=== PATIENT | male | born 1970 | race Caucasian/White ===

== ENCOUNTER 2022-06-01 17:49 | Inpatient (IN) ==
[2022-06-01] MEDS ORDERED: SODIUM CHLORIDE 0.9% 1000ML 1,000 ML IV SCH (18:30)
[2022-06-01] MEDS ORDERED: MoRPHine SULFATE 2 MG/ML CARP IV STA (18:31)
[2022-06-01] MEDS ORDERED: MoRPHine SULFATE 2 MG/ML CARP IV PRN ×2 (18:31→22:46)
[2022-06-01] MEDS ORDERED: ONDANSETRON INJ 2 MG/ML 2 ML VIAL IV STA (18:31)
[2022-06-01] MEDS ORDERED: D5W AND 1/2NSS 1,000 ML IV STA (18:31)
[2022-06-01 18:35] LABS: Basophils # (auto) 0.02 K/uL (0-0.2); Basophils % (auto) 0.1 %; Hematocrit (blood only) 37.7 % (40.1-51.0); Immature Granulocytes # (auto) 0.22 K/uL (0.00-0.02); Immature Granulocytes % (auto) 1.6 %; Lymphocytes % (auto) 18.4 %; Mean Corpuscular Hemoglobin 37.4 pg (25.0-34.0); Mean Corpuscular Hgb Conc 34.5 g/dL (32.0-36.0); Mean Corpuscular Volume 108.3 fL (80.0-100.0); Mean Platelet Volume 11.5 fL (9.4-12.4); Monocytes # (auto) 0.77 K/uL (0.24-0.82); Monocytes % (auto) 5.7 %; Neutrophils # (auto) 10.08 K/uL (1.4-6.5); Neutrophils % (auto) 74.2 %; Platelet Count 215 K/uL (130-400); RDW Coefficient of Variation 17.8 % (11.5-14.5); RDW Standard Deviation 71.7 fL (36.4-46.3); Red Blood Count 3.48 M/uL (4.63-6.08); White Blood Count 13.59 K/ul (4.8-10.8)
--- NOTE | 2022-06-01 18:39 | Emergency Department Note ---
Impression & Plan Weakness, Pneumonia, Ascites, Leukocytosis, Elevated lactic acid level, Hypoglycemia ED Provider Note NAME: LUCIA EDWARD AGE: 51 SEX: M : 1970 ARRIVES VIA: Ambulance INFORMANT: [Patient][ems, nursing] ED PROVIDER(S): [Hawk Hart MD] CHIEF COMPLAINT: Weakness HISTORY OF PRESENT ILLNESS: The patient is a 51-year-old male with a history of alcohol abuse. He was not seen for 2 weeks by his neighbors so EMS was summoned. He was found on the couch and has apparently been there for a week. He is frail, dehydrated, weak. He complains of diffuse moderate abdominal pain and also diarrhea. No respiratory complaints, no cough or chest pain or shortness of breath. The patient does think he may have been running a fever from time to time over the last week or so. The patient does live alone, he admits to decreased oral intake for the last 2 weeks at least. As per the nursing staff, the patient's blood sugar is in the 50s despite him having something to eat when he first arrived here in the ED. REVIEW OF SYSTEMS: See HPI for pertinent positives and negatives. A total of ten systems were reviewed and were otherwise negative. PMHx/PSHx: See Below SOCIAL HISTORY: See Below. PHYSICAL EXAM: GENERAL: Patient is in no acute distress. HEENT: No acute trauma, normocephalic atraumatic, mucous membranes dry, no nasal congestion, no scleral icterus. NECK: No stridor, no adenopathy, no meningismus, trachea is midline. LUNGS: Lungs are clear to auscultation anteriorly, he does appear to have an increased respiratory rate, no wheezing or rhonchi, no respiratory distress. HEART: Very distant and hard to hear heart tones, rhythm seems regular and he is mildly tachycardic. ABDOMEN: Soft, moderately diffusely tender, soft. No distention. EXTREMITIES: No cyanosis. He does have some bilateral pedal edema. His extremities show significant muscle wasting. No gross deformities NEUROLOGIC: Oriented x 3, no acute motor or sensory deficits, no focal weakness. SKIN: No rash, no jaundice, no diaphoresis. DIFFERENTIAL DIAGNOSIS: Infection, dehydration, UTI, debilitation, bowel obstruction, COVID-19, metabolic abnormality, hypo/hyperglycemia, electrolyte disturbance, anemia, hypoxia, cardiac sources, intracerebral event, toxicologic issues, stroke, TIA, as well as other pathologies. EMERGENCY DEPARTMENT COURSE/PROCEDURES: ECG: Indication was weakness. The ECG shows a sinus tachycardia with a rate of 106. There are some T wave inversions in the inferior leads and some subtle ST depression in the lateral leads. There appears to be an old septal infarct. There is no ST elevation. No PVCs. The QTc is 462. Compared to an ECG from 19 September 2021, the ST and T wave findings are new, the rate has increased. Continuous Cardiac Monitoring: An order was placed for continuous cardiac monitoring. The monitor shows a rate of 104 with sinus tachycardia. Critical Care Note: I have personally spent 39 minutes of critical care time in the direct management of this patient. This includes bedside care, interpretation of diagnostic studies, and testing, discussion with consultants, patient, and family members, and other required patient management activities. This 39 minutes is in excess of all separately billable procedures. MEDICAL DECISION MAKING: There is a mild leukocytosis, this certainly could be consistent with infection. No worrisome anemia. There was a normal platelet count. Glucose was low at 56. No renal failure. Lactic acid level was elevated consistent with infection and/or dehydration. Alk phos was slightly elevated, the bilirubin was normal. ECG showed a sinus tachycardia, no ischemia. Cardiac enzyme testing x1 is not consistent with acute cardiac injury. Procalcitonin level was quite elevated. The TSH was high however, the T4 was normal. Urinalysis did not suggest infection. COVID, influenza and RSV test were negative. Chest x-ray shows what appears to be right lower lung pneumonia. Abdominal and pelvis CT shows ascites, no acute surgical pathology by CT imaging. On exam, the patient was frail, dehydrated. He was slightly tachycardic. He had a diffusely tender abdomen. The patient was given IV saline 1 L. He received D5 half-normal saline because the lower blood sugar. He was given IV Zofran for nausea. He received IV morphine for pain as needed. He was given IV cefepime as antibiotic coverage, IV doxycycline as antibiotic coverage. The patient appears to have pneumonia. He is dehydrated. He is weak and unable to care for himself. He will require a hospital stay. With the abdominal pain and ascites, bacterial peritonitis is certainly a possibility. I spoke with the patient, I talked to the case packer and sealer. I spoke to the on-call hospitalist. The possibility of bacterial peritonitis can be further worked up during the hospital stay. A paracentesis can performed. Past Med/Surg History Medical History Chronic back pain Depression Hyperglycemia Migraine Osteoarthritis Uncontrolled type 2 diabetes with neuropathy Uncontrolled type II diabetes mellitus Vitamin D deficiency Surgical History History of esophagogastroduodenoscopy (EGD) History of right inguinal hernia repair History of tooth extraction all teeth removed Family History Father Family history of diabetes mellitus Mother Cancer Breast cancer Other No family history of adverse response to anesthesia Denies family history of Ovarian cancer Prostate cancer Myocardial infarction Colorectal cancer Social History Smoking Status: Current some day smoker Tobacco Type: Cigarettes Age Started Using Tobacco: 12; Cigarettes Per Day: 20 a day; Second Hand Exposure: Yes (parents smoked); Do You Dip or Chew Tobacco: No; Hx Alcohol Use: No Hx Substance Use: Yes Non-Prescribed Medications: Marijuana Last Used Substance: Days (ago) Last Used Substance Other:: for pain Preferred Language: Urdu Communication Ability: Effective Freight Separator Required: No Beliefs That Will Affect Care: None marital status: Single Current Living Situation: Alone current occupational status: disabled How many Children do You have: 1 Feels Safe at Home: Yes Childhood Exposure to Second-Hand Smoke: No caffeine: Yes Dental Care, Regularly: No Physical Activity Frequency: Does not Exercise Seatbelt Use: sometimes Sunscreen Use: No Assistive Devices: Glasses and Wheelchair Allergies Allergies Allergy/AdvReac Type Severity Reaction Status Date / Time No Known Allergies Allergy Unknown Verified 03/26/22 15:02 Home Meds Home Medications Medication Instructions Recorded Confirmed acetaminophen 500 mg tablet 1,000 mg PO TID PRN 09/19/21 06/01/22 insulin aspart U-100 100 unit/mL 0 unit SQ TID 09/19/21 06/01/22 (3 mL) subcutaneous pen (Novolog Flexpen U-100 Insulin aspart) insulin glargine 100 unit/mL (3 0 unit SUBCUT BID 09/19/21 06/01/22 mL) subcutaneous pen (Lantus Solostar U-100 Insulin) Previous Rx's Medication Instructions Recorded blood sugar diagnostic #100 ea 02/04/22 gabapentin 300 mg capsule 300 mg PO BID #60 cap 03/06/22 levothyroxine 50 mcg tablet 50 mcg PO DAILY #30 tab 03/06/22 aspirin 81 mg tablet,delayed 81 mg PO DAILY #30 tab 03/19/22 release (Adult Aspirin Regimen) cholecalciferol (vitamin D3) 125 250 mcg PO DAILY #30 cap 03/26/22 mcg (5,000 unit) capsule Wheelchair (Manual) #1 ea 03/27/22 blood sugar diagnostic (OneTouch #100 ea 05/13/22 Ultra Test) hydrocodone 5 mg-acetaminophen 325 0.5 - 1 tab PO Q12H PRN #30 tab 05/13/22 mg tablet Results & Data (ED) Vital Signs Vital Signs - 24 hr 06/01/22 17:57 06/01/22 18:45 06/01/22 18:46 Temperature 36.7 C Temperature Source Oral Pulse Rate 104 H Pulse Rate from SpO2 Sensor Pulse Rhythm Regular Pulse Strength Normal Respiratory Rate 20 Respiratory Effort / Characteristics Non-Labored Spontaneous Respiratory Depth Normal Respiratory Pattern Regular Blood Pressure 127/91 Blood Pressure Mean 103 Blood Pressure Position Lying Pulse Oximetry 94 95 95 Oxygen Delivery Method Room Air Room Air Room Air Oxygen Flow Rate 0 Sepsis Recent Fever Within 48 Hours No Sepsis New/Unexplained Change in Mental Status N/A Sepsis Action Taken by Nursing No Action Required 06/01/22 20:00 06/01/22 20:30 06/01/22 21:00 Temperature Temperature Source Pulse Rate Pulse Rate from SpO2 Sensor 80 113 H 115 H Pulse Rhythm Pulse Strength Respiratory Rate Respiratory Effort / Characteristics Respiratory Depth Respiratory Pattern Blood Pressure 142/105 H 111/66 Blood Pressure Mean 117 81 Blood Pressure Position Pulse Oximetry 95 98 93 Oxygen Delivery Method Room Air Room Air Room Air Oxygen Flow Rate Sepsis Recent Fever Within 48 Hours Sepsis New/Unexplained Change in Mental Status Sepsis Action Taken by Shelter Medications Current Medication List: was personally reviewed by me Laboratory Data Attestation: I reviewed the patient's lab results. Result diagrams: 06/01/22 18:05 06/01/22 18:05 Lab Results 06/01/22 06/01/22 06/01/22 Range/Units 18:02 18:05 18:05 WBC 13.59 H (4.8-10.8) K/ul RBC 3.48 L (4.63-6.08) M/uL Hgb 13.0 L (14.0-18.0) g/dl Hct 37.7 L (40.1-51.0) % MCV 108.3 H (80.0-100.0) fL MCH 37.4 H (25.0-34.0) pg MCHC 34.5 (32.0-36.0) g/dL RDW Std Deviation 71.7 H (36.4-46.3) fL RDW Coeff of Lay 17.8 H (11.5-14.5) % Plt Count 215 (130-400) K/uL MPV 11.5 (9.4-12.4) fL Immature Gran % (Auto) 1.6 % Neut % (Auto) 74.2 % Lymph % (Auto) 18.4 % King % (Auto) 5.7 % Eos % (Auto) 0.0 % Baso % (Auto) 0.1 % Neut # (Auto) 10.08 H (1.4-6.5) K/uL Lymph # (Auto) 2.50 (1.2-3.4) K/uL King # (Auto) 0.77 (0.24-0.82) K/uL Eos # (Auto) 0.00 (0-0.50) K/uL Baso # (Auto) 0.02 (0-0.2) K/uL Immature Gran # (Auto) 0.22 H (0.00-0.02) K/uL Sodium 140 (136-145) mmol/L Potassium 4.1 (3.5-5.1) mmol/L Chloride 106 (98-107) mmol/L Carbon Dioxide 24 (21-32) mmol/L Anion Gap 10 (3-11) BUN 32 H (6-23) mg/dl Creatinine 0.78 (0.6-1.4) mg/dl Est Cr Clr Drug Dosing 74.0 ml/min Est GFR ( Amer) 119.4 ml/min Est GFR (Non-Af Amer) 103.1 ml/min BUN/Creatinine Ratio 41.0 H (10-20) Glucose 56 L (70-99(Fasting)) mg/dl POC Glucose 58 L* (70-99) mg/dl Lactate (0.4-2.0) mmol/L Calcium 8.0 L (8.5-10.1) mg/dl Magnesium 1.9 (1.7-2.4) mg/dl Total Bilirubin 0.7 (0.2-1.0) mg/dl AST 22 (13-39) U/L ALT 17 (7-52) U/L Alkaline Phosphatase 123 H (34-104) U/L Total Creatine Kinase 47 (30-223) U/L Troponin I High Sens 8.2 (0-20) pg/ml Total Protein 5.6 L (6.0-8.3) gm/dl Albumin 2.0 L (3.4-5.0) gm/dl Globulin 3.6 (2.5-4.0) gm/dl Albumin/Globulin Ratio 0.6 L (0.9-2) Procalcitonin (0-0.5) ng/ml TSH (0.300-4.500) uIu/ml Free T4 (0.61-1.60) ng/dl SARS-CoV-2 (PCR) (Negative) Influenza Type A (PCR) (Neg) Influenza Type B (PCR) (Neg) RSV (RT-PCR) (Neg) 06/01/22 06/01/22 06/01/22 Range/Units 18:05 18:05 18:18 WBC (4.8-10.8) K/ul RBC (4.63-6.08) M/uL Hgb (14.0-18.0) g/dl Hct (40.1-51.0) % MCV (80.0-100.0) fL MCH (25.0-34.0) pg MCHC (32.0-36.0) g/dL RDW Std Deviation (36.4-46.3) fL RDW Coeff of Lay (11.5-14.5) % Plt Count (130-400) K/uL MPV (9.4-12.4) fL Immature Gran % (Auto) % Neut % (Auto) % Lymph % (Auto) % King % (Auto) % Eos % (Auto) % Baso % (Auto) % Neut # (Auto) (1.4-6.5) K/uL Lymph # (Auto) (1.2-3.4) K/uL King # (Auto) (0.24-0.82) K/uL Eos # (Auto) (0-0.50) K/uL Baso # (Auto) (0-0.2) K/uL Immature Gran # (Auto) (0.00-0.02) K/uL Sodium (136-145) mmol/L Potassium (3.5-5.1) mmol/L Chloride (98-107) mmol/L Carbon Dioxide (21-32) mmol/L Anion Gap (3-11) BUN (6-23) mg/dl Creatinine (0.6-1.4) mg/dl Est Cr Clr Drug Dosing ml/min Est GFR ( Amer) ml/min Est GFR (Non-Af Amer) ml/min BUN/Creatinine Ratio (10-20) Glucose (70-99(Fasting)) mg/dl POC Glucose 52 L* (70-99) mg/dl Lactate (0.4-2.0) mmol/L Calcium (8.5-10.1) mg/dl Magnesium (1.7-2.4) mg/dl Total Bilirubin (0.2-1.0) mg/dl AST (13-39) U/L ALT (7-52) U/L Alkaline Phosphatase (34-104) U/L Total Creatine Kinase (30-223) U/L Troponin I High Sens (0-20) pg/ml Total Protein (6.0-8.3) gm/dl Albumin (3.4-5.0) gm/dl Globulin (2.5-4.0) gm/dl Albumin/Globulin Ratio (0.9-2) Procalcitonin 170.37 H (0-0.5) ng/ml TSH 5.406 H (0.300-4.500) uIu/ml Free T4 1.16 (0.61-1.60) ng/dl SARS-CoV-2 (PCR) (Negative) Influenza Type A (PCR) (Neg) Influenza Type B (PCR) (Neg) RSV (RT-PCR) (Neg) 06/01/22 06/01/22 06/01/22 Range/Units 18:25 18:30 19:47 WBC (4.8-10.8) K/ul RBC (4.63-6.08) M/uL Hgb (14.0-18.0) g/dl Hct (40.1-51.0) % MCV (80.0-100.0) fL MCH (25.0-34.0) pg MCHC (32.0-36.0) g/dL RDW Std Deviation (36.4-46.3) fL RDW Coeff of Lay (11.5-14.5) % Plt Count (130-400) K/uL MPV (9.4-12.4) fL Immature Gran % (Auto) % Neut % (Auto) % Lymph % (Auto) % King % (Auto) % Eos % (Auto) % Baso % (Auto) % Neut # (Auto) (1.4-6.5) K/uL Lymph # (Auto) (1.2-3.4) K/uL King # (Auto) (0.24-0.82) K/uL Eos # (Auto) (0-0.50) K/uL Baso # (Auto) (0-0.2) K/uL Immature Gran # (Auto) (0.00-0.02) K/uL Sodium (136-145) mmol/L Potassium (3.5-5.1) mmol/L Chloride (98-107) mmol/L Carbon Dioxide (21-32) mmol/L Anion Gap (3-11) BUN (6-23) mg/dl Creatinine (0.6-1.4) mg/dl Est Cr Clr Drug Dosing ml/min Est GFR ( Amer) ml/min Est GFR (Non-Af Amer) ml/min BUN/Creatinine Ratio (10-20) Glucose (70-99(Fasting)) mg/dl POC Glucose 97 (70-99) mg/dl Lactate 2.5 H* (0.4-2.0) mmol/L Calcium (8.5-10.1) mg/dl Magnesium (1.7-2.4) mg/dl Total Bilirubin (0.2-1.0) mg/dl AST (13-39) U/L ALT (7-52) U/L Alkaline Phosphatase (34-104) U/L Total Creatine Kinase (30-223) U/L Troponin I High Sens (0-20) pg/ml Total Protein (6.0-8.3) gm/dl Albumin (3.4-5.0) gm/dl Globulin (2.5-4.0) gm/dl Albumin/Globulin Ratio (0.9-2) Procalcitonin (0-0.5) ng/ml TSH (0.300-4.500) uIu/ml Free T4 (0.61-1.60) ng/dl SARS-CoV-2 (PCR) NEGATIVE (Negative) Influenza Type A (PCR) Negative (Neg) Influenza Type B (PCR) Negative (Neg) RSV (RT-PCR) Negative (Neg) 06/01/22 Range/Units 20:25 WBC (4.8-10.8) K/ul RBC (4.63-6.08) M/uL Hgb (14.0-18.0) g/dl Hct (40.1-51.0) % MCV (80.0-100.0) fL MCH (25.0-34.0) pg MCHC (32.0-36.0) g/dL RDW Std Deviation (36.4-46.3) fL RDW Coeff of Lay (11.5-14.5) % Plt Count (130-400) K/uL MPV (9.4-12.4) fL Immature Gran % (Auto) % Neut % (Auto) % Lymph % (Auto) % King % (Auto) % Eos % (Auto) % Baso % (Auto) % Neut # (Auto) (1.4-6.5) K/uL Lymph # (Auto) (1.2-3.4) K/uL King # (Auto) (0.24-0.82) K/uL Eos # (Auto) (0-0.50) K/uL Baso # (Auto) (0-0.2) K/uL Immature Gran # (Auto) (0.00-0.02) K/uL Sodium (136-145) mmol/L Potassium (3.5-5.1) mmol/L Chloride (98-107) mmol/L Carbon Dioxide (21-32) mmol/L Anion Gap (3-11) BUN (6-23) mg/dl Creatinine (0.6-1.4) mg/dl Est Cr Clr Drug Dosing ml/min Est GFR ( Amer) ml/min Est GFR (Non-Af Amer) ml/min BUN/Creatinine Ratio (10-20) Glucose (70-99(Fasting)) mg/dl POC Glucose (70-99) mg/dl Lactate 3.0 H* (0.4-2.0) mmol/L Calcium (8.5-10.1) mg/dl Magnesium (1.7-2.4) mg/dl Total Bilirubin (0.2-1.0) mg/dl AST (13-39) U/L ALT (7-52) U/L Alkaline Phosphatase (34-104) U/L Total Creatine Kinase (30-223) U/L Troponin I High Sens (0-20) pg/ml Total Protein (6.0-8.3) gm/dl Albumin (3.4-5.0) gm/dl Globulin (2.5-4.0) gm/dl Albumin/Globulin Ratio (0.9-2) Procalcitonin (0-0.5) ng/ml TSH (0.300-4.500) uIu/ml Free T4 (0.61-1.60) ng/dl SARS-CoV-2 (PCR) (Negative) Influenza Type A (PCR) (Neg) Influenza Type B (PCR) (Neg) RSV (RT-PCR) (Neg) Administered Medications Gabapentin (Gabapentin 300 Mg Cap) 300 mg PO BID RNOEY Stop: 07/01/22 22:45 Last Admin: 06/01/22 23:54 Dose: 300 mg Documented by: [id number] Discontinued Medications Sodium Chloride (Nss 1000ml) 1,000 mls @ 999 mls/hr IV .Q1H1M RONEY Stop: 06/01/22 19:30 Last Infusion: 06/01/22 20:36 Dose: 0 mls/hr Documented by: [id number] Admin: 06/01/22 18:34 Dose: 999 mls/hr Documented by: [id number] Dextrose/Sodium Chloride (D5w And 1/2nss) 1,000 mls @ 125 mls/hr IV .Q8H STA Stop: 06/02/22 02:30 Last Infusion: 06/02/22 00:44 Dose: 0 mls/hr Documented by: [id number] Admin: 06/01/22 18:34 Dose: 125 mls/hr Documented by: [id number] Cefepime HCl (Maxipime) 2,000 mg in 20 mls @ 5 mls/min IV NOW STA; Protocol Stop: 06/01/22 19:07 Last Admin: 06/01/22 19:15 Dose: 5 mls/min Documented by: [id number] Doxycycline Hyclate 100 mg/ (Dextrose) 110 mls @ 50 mls/hr IV NOW STA Stop: 06/01/22 21:35 Last Infusion: 06/01/22 23:48 Dose: 0 mls/hr Documented by: [id number] Admin: 06/01/22 21:16 Dose: 50 mls/hr Documented by: [id number] Ioversol (Optiray 320 100ml) 91 ml IV ONCE ONE Stop: 06/01/22 19:39 Last Admin: 06/01/22 19:38 Dose: 91 ml Documented by: [id number] Morphine Sulfate (Morphine Sulfate 2 Mg/Ml Carp) 2 mg IV NOW STA Stop: 06/01/22 18:32 Last Admin: 06/01/22 19:14 Dose: 2 mg Documented by: [id number] Ondansetron HCl (Ondansetron Inj 2 Mg/Ml 2 Ml Vial) 4 mg IV NOW STA Stop: 06/01/22 18:32 Last Admin: 06/01/22 19:15 Dose: 4 mg Documented by: [id number] Imaging Data Radiologist's Impression: Chest X-Ray 06/01/22 18:17 XR chest 1V portable CLINICAL HISTORY: weakness. Evaluate cardiopulmonary status COMPARISON STUDY: 09/19/2020 TECHNIQUE: 1 view of the chest FINDINGS: Single frontal view of the chest demonstrates the cardiomediastinal silhouette to be within normal limits. There is asymmetric increased soft tissue density present involving the right lower lung suspicious for posterior infiltrate. Follow-up PA and lateral radiographs are recommended. The remainder of the lungs are clear of alveolar opacities. There is no evidence for pleural effusion. There is no evidence for vascular congestion. There is no acute osseous pathology. IMPRESSION: 1. Asymmetric increased density involving the right lower lobe suspicious for infiltrate posteriorly. Follow-up PA and lateral radiographs are recommended. ACT 112: Negative or not required by law. Electronically signed by: Brandon Guthrie M.D. 06/01/2022 7:06 PM Abdomen/Pelvis CT 06/01/22 18:31 CT abd pelvis IV con only CLINICAL HISTORY: panc cancer, abdominal pain COMPARISON STUDY: 05/16/2011 CT DOSE: 246.59 mGy.cm TECHNIQUE: Standard CT of the Abdomen and Pelvis was performed with IV contrast. A dose lowering technique was utilized adhering to the principles of ALARA. Contrast Volume: Optiray 320, 91 ml. The patient did not receive oral contrast. FINDINGS: Lung base: There are moderately large bilateral pleural effusions with mild compressive atelectasis at the lung bases. Abdominal cavity: There is marked abdominal and pelvic ascites. Liver: There is homogeneous attenuation of the liver parenchyma. There is no evidence for enhancing mass lesion. Spleen: There is homogeneous attenuation of the splenic parenchyma. There is no enhancing mass lesion. Pancreas: There is diffuse calcification of the body the pancreas. No definite mass lesion is identified. Gall Bladder: The gallbladder is distended with no evidence for intraluminal calculi, wall thickening or pericholecystic edema. Adrenal glands: The adrenal glands are normal in size and attenuation. There is no evidence for enhancing mass lesion. Kidneys: There is homogeneous attenuation of the renal parenchyma bilaterally. There is no evidence for renal calculus or hydronephrosis. There is no evidence for enhancing mass. Bowel: There is diffuse mucosal thickening of the spears of the small and large bowel. This is probably related to the marked ascites present. There is no ev idence for mass lesion. There is no bowel loop dilatation or obstruction. There is no evidence for free air. Bladder: The bladder is within normal limits with no evidence for focal mass, calculus or diverticulum. : There is no evidence for pelvic mass or adenopathy. Vasculature: There is no evidence for aneurysmal dilatation of the abdominal aorta. Osseous structures: There is no acute osseous pathology. IMPRESSION: 1. Marked abdominal and pelvic ascites. 2. Diffuse mucosal thickening of the large and small bowel with no evidence for bowel loop dilatation or obstruction. 3. Moderately large bilateral pleural effusions with bibasilar atelectasis. 4. Diffuse calcification of the body the pancreas with no focal mass identified. 5. Additional nonacute findings are delineated above. ACT 112: Negative or not required by law. Electronically signed by: Brandon Guthrie M.D. 06/01/2022 7:49 PM Discharge Plan Visit Data Chief Complaint: Weakness Stated Complaint: weakness ED Provider: Hawk Hart Discharge Problem: Weakness, Pneumonia, Ascites, Leukocytosis, Elevated lactic acid level, Hypoglycemia Patient Disposition: Admitted As Inpatient Condition: Fair Discharge Instructions Interventions: ED Discharge Assessment Last Done: 06/01/22 22:28
[2022-06-01 18:59] LABS: Troponin I High Sensitivity 8.2 pg/ml (0-20)
[2022-06-01 19:01] LABS: Albumin Globulin Ratio 0.6 (0.9-2); Bilirubin,Total 0.7 mg/dl (0.2-1.0); Est GFR (African American) 119.4 ml/min; Est GFR (Non-African American) 103.1 ml/min; Globulin 3.6 gm/dl (2.5-4.0); Magnesium 1.9 mg/dl (1.7-2.4); Potassium 4.1 mmol/L (3.5-5.1); Total Protein 5.6 gm/dl (6.0-8.3)
[2022-06-01] MEDS ORDERED: CEFEPIME 2,000 MG/20 ML VIAL IV STA (19:04)
[2022-06-01 19:06] LABS: Thyroid Stimulating Hormone 5.406 uIu/ml (0.300-4.500)
--- NOTE | 2022-06-01 19:07 | XRay Report ---
XR chest 1V portable CLINICAL HISTORY: weakness. Evaluate cardiopulmonary status COMPARISON STUDY: 09/19/2020 TECHNIQUE: 1 view of the chest FINDINGS: Single frontal view of the chest demonstrates the cardiomediastinal silhouette to be within normal li mits. There is asymmetric increased soft tissue density present involving the right lower lung suspic ious for posterior infiltrate. Follow-up PA and lateral radiographs are recommended. The remainder of the lungs are clear of alveolar opacities. There is no evidence for pleural effusion. There is no ev idence for vascular congestion. There is no acute osseous pathology. IMPRESSION: 1. Asymmetric increased density involving the right lower lobe suspicious for infiltrate posteriorly. Follow-up PA and lateral radiographs are recommended. ACT 112: Negative or not required by law. Electronically signed by: Brandon Guthrie M.D. 06/01/2022 7:06 PM
[2022-06-01] MEDS ORDERED: DOXYCYCLINE HYCLATE 100 MG in DEXTROSE 5% 100 ML IV STA (19:24)
[2022-06-01 19:29] LABS: Influenza A virus by PCR Negative (Neg); Influenza B virus by PCR Negative (Neg); RSV by PCR Negative (Neg); SARS CoV2 RNA(COVID-19) InHosp NEGATIVE (Negative)
[2022-06-01] MEDS ORDERED: OPTIRAY 320 100ml IV ONE (19:38)
[2022-06-01 19:42] LABS: T4 Free Thyroxine 1.16 ng/dl (0.61-1.60)
--- NOTE | 2022-06-01 19:51 | CT Scan Report ---
CT abd pelvis IV con only CLINICAL HISTORY: panc cancer, abdominal pain COMPARISON STUDY: 05/16/2011 CT DOSE: 246.59 mGy.cm TECHNIQUE: Standard CT of the Abdomen and Pelvis was performed with IV contrast. A dose lowering andrew hnique was utilized adhering to the principles of ALARA. Contrast Volume: Optiray 320, 91 ml. The patient did not receive oral contrast. FINDINGS: Lung base: There are moderately large bilateral pleural effusions with mild compressive atelectasis a t the lung bases. Abdominal cavity: There is marked abdominal and pelvic ascites. Liver: There is homogeneous attenuation of the liver parenchyma. There is no evidence for enhancing m ass lesion. Spleen: There is homogeneous attenuation of the splenic parenchyma. There is no enhancing mass lesion . Pancreas: There is diffuse calcification of the body the pancreas. No definite mass lesion is identif ied. Gall Bladder: The gallbladder is distended with no evidence for intraluminal calculi, wall thickening or pericholecystic edema. Adrenal glands: The adrenal glands are normal in size and attenuation. There is no evidence for enhan cing mass lesion. Kidneys: There is homogeneous attenuation of the renal parenchyma bilaterally. There is no evidence f or renal calculus or hydronephrosis. There is no evidence for enhancing mass. Bowel: There is diffuse mucosal thickening of the spears of the small and large bowel. This is probabl y related to the marked ascites present. There is no evidence for mass lesion. There is no bowel loop dilatation or obstruction. There is no evidence for free air. Bladder: The bladder is within normal limits with no evidence for focal mass, calculus or diverticulu m. : There is no evidence for pelvic mass or adenopathy. Vasculature: There is no evidence for aneurysmal dilatation of the abdominal aorta. Osseous structures: There is no acute osseous pathology. IMPRESSION: 1. Marked abdominal and pelvic ascites. 2. Diffuse mucosal thickening of the large and small bowel with no evidence for bowel loop dilatation or obstruction. 3. Moderately large bilateral pleural effusions with bibasilar atelectasis. 4. Diffuse calcification of the body the pancreas with no focal mass identified. 5. Additional nonacute findings are delineated above. ACT 112: Negative or not required by law. Electronically signed by: Brandon Guthrie M.D. 06/01/2022 7:49 PM
--- NOTE | 2022-06-01 20:22 | History & Physical Report ---
Date of Service June 01, 2022 Assessment & Plan (1) Hypoglycemia: Plan: - Presenting sugar 56 on BMP, 58 POC glucose. Patient has not been eating much over the past 2 weeks, yet intermittently taking his insulin. - D5w with 1/2 NSS @ 125 cc/hr. - Sugar improving with fluid and po intake. - Hold home insulin, start on SSI. (2) Sepsis: Plan: - WBC 13.59, lactate 2.5, tachycardic. Source at this time suspected to be pneumonia based on CXR, chills at home, reported cough. No evidence of infection on CT A/P. - Blood cultures ordered. Trend lactate in AM. - D5 half NS for hypoglycemia as above. - Has been maintaining MAP >65. (3) Pneumonia: Plan: - Evidence on CXR, patient with reported chills at home, cough, elevated WBC. - Treat empirically with cefepime, blood cultures ordered. Patient without sputum production, not sure that sputum culture would be obtainable. - Lactate elevated, likely multifactorial due to severe malnutrition/dehydration and infection. * Repeat in AM. (4) Protein calorie malnutrition: Plan: - Patient states he only eats 1 or 2 times a day, for the past 2 weeks he has not been eating very much at all, however his weight loss has apparently been going ongoing for several months. Patient states he was diagnosed with meza creatic cancer in 2010 along with his diabetes, however I see no oncology notes or no note of this or any cancer for that matter in his PCP notes. It seems that his PCP was recommending chest CT, CT A/P, and UA to rule out malignancies. - CXR, CT A/P here without any evidence for mass or any kind of infectious inflammatory process. - Patient's abdomen is somewhat tender, with abdominal and pelvic ascites are noted on CT. Will consult radiology for diagnostic paracentesis. -Albumin 2.6, protein 5.6. (5) Ascites: Plan: - Consult radiology for diagnostic paracentesis. (6) Insulin dependent diabetes mellitus: Plan: - Presented with blood sugar of 56, started on D5 and half-normal saline 125 cc/hour. Sugar improving, patient hungry and being fed. - Hold him insulin (Lantus 2 units twice daily with NovoLog 3 units at mealtimes) coer with SSI without carb ratio. - A1c in AM. - Continue gabapentin for neuropathy. - [place] diet given hypoglycemia, severe malnutrition. (7) Anemia: Plan: - Appears stable, elevated MCV and MCHC. - Iron studies + ferritin, B12, folate w/ AM labs. (8) Hypothyroidism: Plan: - Continue levothyroxine. - TSH 5.4, free T4 1.16. (9) Alcoholism: Plan: - History of, last drink in 2019. Plan: - Admit to med/tele. - SCDS for VTE ppx. - Full Code. History of Present Illness Primary Care Provider: Chad Oreilly DO Jabari Recinos is a 51-year-old male with severe malnutrition, hypothyroidism, diabetes, neuropathy, and history of alcohol abuse with last drink in 2019 who presents today with hypoglycemia. Patient's neighbors called EMS for wellness check when they had not seen him in 2 weeks. They reportedly found him on his couch in his home. He had a low sugar and was brought into the ED for further evaluation. Patient states over the past several weeks he has been feeling generally weak with ongoing chills and dry cough. He has not been eating much, going a few days at a time without eating. He has intermittently been taking his Lantus. He has been having some abdominal pain as well, but states it is only mild and fairly general. He denies headache, body aches, chest pain, palpitations, shortness of breath, sputum production, nausea, vomiting, diarrhea, constipation. He is reporting that he has pancreatic cancer that he says was diagnosed in 2010, also reports he thinks he is colon cancer however I do not see mention of any confirmed cancer diagnosis in his PCP notes. Upon review of PCP notes, it looks like his weight loss has been an ongoing issue and provider was attempting to arrange labs and imaging to evaluate for malignancy, however I do not see these labs or imaging in our system. In the ED, he is tachycardic with HR 90-100, otherwise vital signs within normal limits. Labs significant for leukocytosis, elevated lactate, stable macrocytic anemia, initial glucose of 56, calcium 8.0. Protein 5.6, albumin 2.0. COVID/flu/RSV negative. CXR with infiltrate in RLL, CT A/P with abdominal and pelvic ascites, mucosal thickening of the large and small bowel with no evidence of leak dilation obstr uction, large bilateral pleural effusions with atelectasis, and diffuse calcification of the pancreas without a focal mass noted. Allergies Allergy/AdvReac Type Severity Reaction Status Date / Time No Known Allergies Allergy Unknown Verified 03/26/22 15:02 Home Medications Medication Instructions Recorded Confirmed Type acetaminophen 500 mg tablet 1,000 mg PO TID PRN 09/19/21 06/01/22 History insulin aspart U-100 100 unit/mL 0 unit SQ TID 09/19/21 06/01/22 History (3 mL) subcutaneous pen (Novolog Flexpen U-100 Insulin aspart) insulin glargine 100 unit/mL (3 0 unit SUBCUT BID 09/19/21 06/01/22 History mL) subcutaneous pen (Lantus Solostar U-100 Insulin) blood sugar diagnostic #100 ea 02/04/22 06/01/22 Rx gabapentin 300 mg capsule 300 mg PO BID #60 cap 03/06/22 06/01/22 Rx levothyroxine 50 mcg tablet 50 mcg PO DAILY #30 tab 03/06/22 06/01/22 Rx aspirin 81 mg tablet,delayed 81 mg PO DAILY #30 tab 03/19/22 06/01/22 Rx release (Adult Aspirin Regimen) cholecalciferol (vitamin D3) 125 250 mcg PO DAILY #30 cap 03/26/22 06/01/22 Rx mcg (5,000 unit) capsule Wheelchair (Manual) #1 ea 03/27/22 06/01/22 Rx blood sugar diagnostic (OneTouch #100 ea 05/13/22 06/01/22 Rx Ultra Test) hydrocodone 5 mg-acetaminophen 325 0.5 - 1 tab PO Q12H PRN #30 tab 05/13/22 06/01/22 Rx mg tablet Past Med/Surg History Medical History Chronic back pain Depression Hyperglycemia Migraine Osteoarthritis Uncontrolled type 2 diabetes with neuropathy Uncontrolled type II diabetes mellitus Vitamin D deficiency Surgical History History of esophagogastroduodenoscopy (EGD) History of right inguinal hernia repair History of tooth extraction all teeth removed Family History Father Family history of diabetes mellitus Mother Cancer Breast cancer Other No family history of adverse response to anesthesia Denies family history of Ovarian cancer Prostate cancer Myocardial infarction Colorectal cancer Social History Smoking Status: Current some day smoker Tobacco Type: Cigarettes Age Started Using Tobacco: 12; Cigarettes Per Day: 20 a day; Second Hand Exposure: Yes (parents smoked); Do You Dip or Chew Tobacco: No; Hx Alcohol Use: No Hx Substance Use: Yes Non-Prescribed Medications: Marijuana Last Used Substance: Days (ago) Last Used Substance Other:: for pain Preferred Language: Yakut Communication Ability: Effective Care Attendant Required: No Beliefs That Will Affect Care: None marital status: Single Current Living Situation: Alone current occupational status: disabled How many Children do You have: 1 Feels Safe at Home: Yes Childhood Exposure to Second-Hand Smoke: No caffeine: Yes Dental Care, Regularly: No Physical Activity Frequency: Does not Exercise Seatbelt Use: sometimes Sunscreen Use: No Assistive Devices: Crutches and Wheelchair Review of Systems Review of Systems: All systems reviewed & are unremarkable except as noted in HPI & below Physical Exam Physical Exam: General: awake, alert, no apparent distress, appears cachectic Head: Normocephalic, atraumatic ENT: PERRL, EOMI, no pharyngeal exudate, mucous membranes moist Chest: Clear to auscultation, on room air, no adventitious breath sounds Cardiac: Heart sounds distant, he is mildly tachycardic, regular rhythm;no murmur, no JVD, normal peripheral pulses, good capillary refill Abdominal: NABS x 4 quadrants, soft, nontender to palpation, no rebound, guarding or tenderness Extremities: Mild bilateral pedal edema; normal inspection, no peripheral edema or erythema, calfs nontender to palpation Psych: Normal mood and affect Neuro: AAO x 3, strength intact bilaterally and rated 5/5, no motor deficits, speech is clear, no peripheral sensory deficits Skin: no rash or erythema Results & Data Results & Data ([facility]) Vital Signs (Past 12 Hours) Vital Signs Temp Pulse Resp BP Pulse Ox 06/01/22 18:46 95 06/01/22 18:45 95 06/01/22 17:57 36.7 C 104 H 20 127/91 94 Laboratory Results Abnormal lab results 06/01/22 06/01/22 06/01/22 Range/Units 18:02 18:05 18:05 WBC 13.59 H (4.8-10.8) K/ul RBC 3.48 L (4.63-6.08) M/uL Hgb 13.0 L (14.0-18.0) g/dl Hct 37.7 L (40.1-51.0) % MCV 108.3 H (80.0-100.0) fL MCH 37.4 H (25.0-34.0) pg RDW Std Deviation 71.7 H (36.4-46.3) fL RDW Coeff of Lay 17.8 H (11.5-14.5) % Neut # (Auto) 10.08 H (1.4-6.5) K/uL Immature Gran # (Auto) 0.22 H (0.00-0.02) K/uL BUN 32 H (6-23) mg/dl BUN/Creatinine Ratio 41.0 H (10-20) Glucose 56 L (70-99(Fasting)) mg/dl POC Glucose 58 L* (70-99) mg/dl Lactate (0.4-2.0) mmol/L Calcium 8.0 L (8.5-10.1) mg/dl Alkaline Phosphatase 123 H (34-104) U/L Total Protein 5.6 L (6.0-8.3) gm/dl Albumin 2.0 L (3.4-5.0) gm/dl Albumin/Globulin Ratio 0.6 L (0.9-2) TSH (0.300-4.500) uIu/ml 06/01/22 06/01/22 06/01/22 Range/Units 18:05 18:18 18:30 WBC (4.8-10.8) K/ul RBC (4.63-6.08) M/uL Hgb (14.0-18.0) g/dl Hct (40.1-51.0) % MCV (80.0-100.0) fL MCH (25.0-34.0) pg RDW Std Deviation (36.4-46.3) fL RDW Coeff of Lay (11.5-14.5) % Neut # (Auto) (1.4-6.5) K/uL Immature Gran # (Auto) (0.00-0.02) K/uL BUN (6-23) mg/dl BUN/Creatinine Ratio (10-20) Glucose (70-99(Fasting)) mg/dl POC Glucose 52 L* (70-99) mg/dl Lactate 2.5 H* (0.4-2.0) mmol/L Calcium (8.5-10.1) mg/dl Alkaline Phosphatase (34-104) U/L Total Protein (6.0-8.3) gm/dl Albumin (3.4-5.0) gm/dl Albumin/Globulin Ratio (0.9-2) TSH 5.406 H (0.300-4.500) uIu/ml Diagnostic Findings Chest X-Ray 06/01/22 18:17 XR chest 1V portable CLINICAL HISTORY: weakness. Evaluate cardiopulmonary status COMPARISON STUDY: 09/19/2020 TECHNIQUE: 1 view of the chest FINDINGS: Single frontal view of the chest demonstrates the cardiomediastinal silhouette to be within normal limits. There is asymmetric increased soft tissue density present involving the right lower lung suspicious for posterior infiltrate. Follow-up PA and lateral radiographs are recommended. The remainder of the lungs are clear of alveolar opacities. There is no evidence for pleural effusion. There is no evidence for vascular congestion. There is no acute osseous pathology. IMPRESSION: 1. Asymmetric increased density involving the right lower lobe suspicious for infiltrate posteriorly. Follow-up PA and lateral radiographs are recommended. ACT 112: Negative or not required by law. Electronically signed by: Brandon Guthrie M.D. 06/01/2022 7:06 PM Abdomen/Pelvis CT 06/01/22 18:31 CT abd pelvis IV con only CLINICAL HISTORY: panc cancer, abdominal pain COMPARISON STUDY: 05/16/2011 CT DOSE: 246.59 mGy.cm TECHNIQUE: Standard CT of the Abdomen and Pelvis was performed with IV contrast. A dose lowering technique was utilized adhering to the principles of ALARA. Contrast Volume: Optiray 320, 91 ml. The patient did not receive oral contrast. FINDINGS: Lung base: There are moderately large bilateral pleural effusions with mild compressive atelectasis at the lung bases. Abdominal cavity: There is marked abdominal and pelvic ascites. Liver: There is homogeneous attenuation of the liver parenchyma. There is no evidence for enhancing mass lesion. Spleen: There is homogeneous attenuation of the splenic parenchyma. There is no enhancing mass lesion. Pancreas: There is diffuse calcification of the body the pancreas. No definite mass lesion is identified. Gall Bladder: The gallbladder is distended with no evidence for intraluminal calculi, wall thickening or pericholecystic edema. Adrenal glands: The adrenal glands are normal in size and attenuation. There is no evidence for enhancing mass lesion. Kidneys: There is homogeneous attenuation of the renal parenchyma bilaterally. There is no evidence for renal calculus or hydronephrosis. There is no evidence for enhancing mass. Bowel: There is diffuse mucosal thickening of the spears of the small and large bowel. This is probably related to the marked ascites present. There is no evidence for mass lesion. There is no bowel loop dilatation or obstruction. There is no evidence for free air. Bladder: The bladder is within normal limits with no evidence for focal mass, calculus or diverticulum. : There is no evidence for pelvic mass or adenopathy. Vasculature: There is no evidence for aneurysmal dilatation of the abdominal aorta. Osseous structures: There is no acute osseous pathology. IMPRESSION: 1. Marked abdominal and pelvic ascites. 2. Diffuse mucosal thickening of the large and small bowel with no evidence for bowel loop dilatation or obstruction. 3. Moderately large bilateral pleural effusions with bibasilar atelectasis. 4. Diffuse calcification of the body the pancreas with no focal mass identified. 5. Additional nonacute findings are delineated above. ACT 112: Negative or not required by law. Electronically signed by: Brandon Guthrie M.D. 06/01/2022 7:49 PM ECG Additional Comments: Sinus tachycardia Rightward axis Pulmonary disease pattern Septal infarct (cited on or before 01-JUN-2022) T wave abnormality, consider inferior ischemia Abnormal ECG When compared with ECG of 19-SEP-2021 14:08, Vent. rate has increased BY [address] no longer elevated in Inferior leads T wave inversion now evident in Inferior leads. Code Status & VTE Plan Code Status Full Code. Supervising Physician Co-Signing Physician Notes Attending addendum: I have physically seen this patient, have supervised the SAMANTHA's activities, and agree with the H&P unless as otherwise noted. Assessment and Plan: Sepsis- Likely secondary to pneumonia Follow blood culture and sensitivities Cefepime 2 g IV every 12 hours Duonebs every 4 hours while awake and every 2 hours when necessary. Guaifenesin extended release 12 mg p.o. twice daily Hypoglycemia/protein calorie malnutrition/diabetes mellitus Glucose [address] Accu-Cheks before meals and at bedtime with no insulin coverage D5 in IV fluids Ascites- Consult radiology for diagnostic/therapeutic paracentesis Question of history of pancreatic cancer has not been confirmed History of alcoholism Remaining orders and notations as noted PG Care Time/CCT Total # of Minutes Spent Total Time Spent with Patient: Total time spent is greater than 50% in coordination of care (as documented) at patient's floor/unit and/or counseling patient: Coding Level of Care Code 97974 Initial Inpt Care Lvl 3 Diagnoses Protein calorie malnutrition E46 Insulin dependent diabetes mellitus E11.9; Z79.4 Hypothyroidism E03.9 Anemia D64.9 Hypoglycemia E16.2 Pneumonia J18.9 Ascites R18.8 Alcoholism F10.20 Sepsis A41.9
[2022-06-01] MEDS ORDERED: ONDANSETRON INJ 2 MG/ML 2 ML VIAL IV PRN (22:46)
[2022-06-01] MEDS ORDERED: POLYETHYLENE (MIRALAX) 17 GM PACK PO PRN (22:46)
[2022-06-01] MEDS ORDERED: MoRPHine SULFATE 4 MG/ML 1 ML CARP\\VIAL IV PRN (22:46)
[2022-06-01] MEDS ORDERED: GLUCOSE 40% GEL 15 GM TUBE PO PRN (22:46)
[2022-06-01] MEDS ORDERED: ACETAMINOPHEN 500 MG TAB PO PRN (22:46)
[2022-06-01] MEDS ORDERED: GLUCAGON FOR INJ 1 MG VIAL SQ PRN (22:46)
[2022-06-01] MEDS: GABAPENTIN 300 MG CAP PO SCH (23:54)
[2022-06-02 00:06] LABS: Appearance Urine Clear (Clear); Bacteria Urine Automated Negative (Negative); Bilirubin Urine Negative (Negative); Blood Urine Negative (Negative); Color Urine Yellow; Glucose Urine UA Negative (Negative); Ketones Urine 1+ (Negative); Leukocyte Esterase Urine Negative (Negative); Nitrite Urine Negative (Negative); Protein Urine Trace (Negative); Specific Gravity Urine > 1.045 (1.000-1.030); Urobilinogen Urine Negative (Negative); pH Urine 5.5 (4.5-7.5)
[2022-06-02] MEDS: LEVOTHYROXINE SODIUM 50 MCG TABLET PO SCH (05:51)
[2022-06-02] MEDS ORDERED: CEFEPIME 2,000 MG in SYRINGE 0 ML IV SCH (06:00)
[2022-06-02 07:41] LABS: Hematocrit (blood only) 34.2 % (40.1-51.0); Hemoglobin 11.5 g/dl (14.0-18.0); Mean Corpuscular Hemoglobin 37.5 pg (25.0-34.0); Mean Corpuscular Hgb Conc 33.6 g/dL (32.0-36.0); Mean Corpuscular Volume 111.4 fL (80.0-100.0); Mean Platelet Volume 11.2 fL (9.4-12.4); Platelet Count 215 K/uL (130-400); RDW Standard Deviation 73.5 fL (36.4-46.3); Red Blood Count 3.07 M/uL (4.63-6.08); White Blood Count 14.51 K/ul (4.8-10.8)
[2022-06-02 08:02] LABS: Anion Gap 2 (3-11); BUN Creatinine Ratio 42.1 (10-20); Blood Urea Nitrogen 32 mg/dl (6-23); Calcium 7.2 mg/dl (8.5-10.1); Carbon Dioxide 26 mmol/L (21-32); Chloride 107 mmol/L (98-107); Creatinine Clr Calc Pharmacy 64.7 ml/min; Est GFR (African American) 120.7 ml/min; Est GFR (Non-African American) 104.2 ml/min; Glucose 184 mg/dl (70-99(Fasting)); Potassium 4.3 mmol/L (3.5-5.1); Sodium 135 mmol/L (136-145)
[2022-06-02 08:03] LABS: Iron 21 mcg/dl (35-175); Magnesium 1.7 mg/dl (1.7-2.4); Phosphorus 2.9 mg/dl (2.5-4.9); Unsaturated Iron Binding Cap < 55 mcg/dl (155-355)
[2022-06-02] MEDS ORDERED: LACTATED RINGER'S 1,000 ML IV ONE (08:10)
[2022-06-02] MEDS: INSULIN ASPART PER UNIT SC SCH ×4 (08:31→21:38)
[2022-06-02 08:36] LABS: Ferritin 654.2 ng/ml (8-388)
[2022-06-02] MEDS: GABAPENTIN 300 MG CAP PO SCH ×2 (08:37→19:48)
[2022-06-02] MEDS: CHOLECALCIFEROL 5,000 UNITS 125 MCG TAB PO SCH (08:38)
[2022-06-02] MEDS: ASPIRIN 81 MG ECTAB PO SCH (08:38)
[2022-06-02 08:39] LABS: Basophils # (auto) 0.02 K/uL (0-0.2); Basophils % (auto) 0.1 %; Eosinophils # (auto) 0.01 K/uL (0-0.50); Eosinophils % (auto) 0.1 %; Immature Granulocytes % (auto) 2.1 %; Macrocytosis Present; Monocytes # (auto) 0.64 K/uL (0.24-0.82); Monocytes % (auto) 4.4 %; Neutrophils # (auto) 11.94 K/uL (1.4-6.5); Neutrophils % (auto) 82.3 %; Polychromasia 1+; Target Cells 1+
[2022-06-02 09:07] LABS: INR 1.2 (0.9-1.1); Partial Thromboplastin Ratio 1.2; Prothrombin Time 12.8 Seconds (9.0-12.0)
[2022-06-02 09:17] LABS: Albumin Level 1.7 gm/dl (3.4-5.0); Bilirubin Direct 0.2 mg/dl (0-0.2); Bilirubin,Total 0.6 mg/dl (0.2-1.0)
[2022-06-02 09:40] LABS: Folate (Folic Acid) 12.67 ng/ml (>5.38)
[2022-06-02 09:41] LABS: Vitamin B12 > 1500 pg/ml (180-914)
[2022-06-02] MEDS: AZITHROMYCIN 500 MG in DEXTROSE 5% 250 ML IV SCH (09:46)
--- NOTE | 2022-06-02 11:25 | Ultrasound Report ---
US abdomen limited CLINICAL HISTORY: New cirrhosis? TECHNIQUE: Multiple real-time sonographic images of the right upper quadrant were obtained. Comparison: Comparison is made to CT abdomen pelvis 06/01/2022 FINDINGS: The liver is diffusely homogenous with normal contour and echogenicity. No focal mass lesions are se en. No intrahepatic ductal dilatation is seen. No gallstones or sludge are identified within the gallbladder. The gallbladder wall is not thickened. There is no pericholecystic fluid present. A sono graphic Guerra's sign was not elicited by the service unit operator. The common duct measures 0 point cm in d iameter at the level of the hepatic artery. The pancreas is heterogeneous with a hypoechoic area see n in the tail measuring 0.5 x 0.7 x 1.0 cm. The right kidney shows normal echogenicity, cortical thickness and renal contour. The right kidney sh ows no evidence of hydronephrosis or mass. Mild ascites is seen. Right pleural effusion is partially visualized. IMPRESSION: No evidence of acute cholecystitis. The pancreas is heterogeneous compatible with diffuse calcificati ons of chronic pancreatitis. A hypoechoic lesion in the pancreatic tail is seen, nonspecific, may rep resent IPMN. If not previously evaluated, nonemergent MRCP can be performed. ACT 112: Negative or not required by law. Electronically signed by: Edwin Dupont M.D. 06/02/2022 11:24 AM
--- NOTE | 2022-06-02 12:11 | Electrocardiogram Report ---
Test Reason : Blood Pressure : / mmHG Vent. Rate : 106 BPM Atrial Rate : 106 BPM P-R Int : 126 ms QRS Dur : 078 ms QT Int : 348 ms P-R-T Axes : 087 102 -75 degrees QTc Int : 462 ms Sinus tachycardia Rightward axis Poor R wave progression, consider anterior MD vs. lead placement vs. LVH T wave abnormality, consider inferior ischemia Low voltage QRS Abnormal ECG When compared with ECG of 19-SEP-2021 14:08, Vent. rate has increased BY [address] no longer elevated in Inferior leads T wave inversion now evident in Inferior leads Nonspecific T wave abnormality now evident in Lateral leads Confirmed by Erickson Mcgowan ([id number]) on 06/02/2022 12:10:42 PM Referred By: REFERRED SELF Confirmed By:Phani Mcgowan
[2022-06-02] MEDS: cefTRIAXone SODIUM 1,000 MG in DEXTROSE 5% 50 ML IV SCH (13:09)
--- NOTE | 2022-06-02 13:56 | Hospitalist Progress Note ---
Date of Service June 02, 2022 Assessment & Plan (1) Sepsis: Plan: - Most definitely has SIRS manifested by leukocytosis, tachycardia and now hypotension but as far as a specific source of infection, that remains unclear - Blood cultures ordered and are pending - Repeat cbc this AM with increased wbc count from 13,500 to 14,500 w/ left shift - Empiric abx given in ED included Doxy and Cefepime, continued on Cefepime alone - IVF in form of D51/2NSS ordered d/t hypoglycemia - This AM, pt now hypotensive with systolic BP readings in the 80s overnight - 1L NS bolus ordered x 1 now - UA not suggestive of infection - No significant findings of pna on CXR and cough is chronic for him - Elevated lactate ?secondary to extreme dehydration, hypogylcemia and malnutrition - Abx changed on 06/02 to cover for SBP in light of acites on CT --> d/c Cefepime and start Rocephin + Zithromax for atypical coverage - Markedly elevated procalcitonin level of 170, will trend - Resume fluids to maintenance of NS at 100 ml/hr (2) Hypoglycemia: Plan: - Presenting sugar 56 on BMP, 58 POC glucose. Patient has not been eating much over the past 2 weeks, yet intermittently taking his insulin. - D5 1/2 NSS @ 125 cc/hr ordered on admit - Sugar has recovered with resumption of - Held home insulin, started on SSI. (3) Pneumonia: Plan: - Treated by admitting team as such but clinically and radiographically, does not appear to have evidence of this - Started empirically on cefepime, blood cultures ordered. - Patient without sputum production, not sure that sputum culture would be obtainable. - Lactate elevated, likely multifactorial due to severe malnutrition/dehydration and ?infection. - Obtain CT chest w/o contrast (4) Protein calorie malnutrition: Plan: - Patient states he only eats 1 or 2 times a day, for the past 2 weeks he has not been eating very much at all, however his weight loss has apparently been going ongoing for several months. Patient states he was diagnosed with pancreatic cancer in 2010 along with his diabetes, however I see no oncology notes or no note of this or any cancer for that matter in his PCP notes. It seems that his PCP was recommending chest CT, CT A/P, and UA to rule out malignancies. - CXR, CT A/P here without any evidence for mass or any kind of infectious inflammatory process. - Patient's abdomen is somewhat tender, with abdominal and pelvic ascites are noted on CT. Radiology consulted for diagnostic paracentesis. - Will also obtain a CT chest w/o contrast - Consult RD for nutritional supplementations (5) Ascites: Plan: - Read as large on CT but RUQ ultrasound obtained showing only mild amount, not enough to perform bedside diagnostic paracentesis - No evidence of cirrhosis via ultrasound - Consulted radiology for diagnostic paracentesis-issue will be risk for peritoneal fluid being sterilized d/t receiving abx - Coags ordered, elevated INR of 1.2 (6) Insulin dependent diabetes mellitus: Plan: - Presented with blood sugar of 56, started on D5 and half-normal saline 125 cc /hour. Sugar improving, patient hungry and being fed. - Hold him insulin (Lantus 2 units twice daily with NovoLog 3 units at mealtimes) cover with SSI without carb ratio. - A1c ordered and pending as they are not drawn over the weekends - Continue gabapentin for neuropathy. - [place] diet given hypoglycemia, severe malnutrition. (7) Anemia: Plan: - Appears stable, macrocytic - Vitamin B12 and folate not deficient - Iron 21 - No evidence of blood loss (8) Hypothyroidism: Plan: - Continue levothyroxine. - TSH 5.4, free T4 1.16. - Would hold off on any adjustments in Synthroid at present (9) Alcoholism: Plan: - History of, last drink in 2019. - No evidence of cirrhosis Plan: Interventions as outlined above. AM labs. SCDs ordered for DVT ppx. Plan discussed extensively with Dr. Angelo Graham. Further orders as warranted. Admission and Anticipated Discharge Date Admission Date: June 01, 2022 Subjective Patient was seen on rounds this morning. He is resting comfortably in bed, reports that he is tired but that he otherwise feels much better today as compared to when he came in. He denies cp, dyspnea, n/v/d, f/c, headache, or gu symptoms. Denies abd pain. Has a chronic "smoker's cough" but doesn't feel that it is any worse than his baseline. Review of Systems Review of Systems: All systems reviewed and are unremarkable except as noted in HPI and below. Denies fever, chills, fatigue, headache, nasal congestion, sore throat, chest pain, shortness of breath, palpitations, orthopnea, PND, abdominal pain, n/v/d, constipation, dysuria, hematuria, frequency, back pain, joint pain or swelling, easy bruising or bleeding, skin lesions or rashes. Physical Exam Physical Exam: GENERAL: 51 yo chronically ill appearing markedly underweight WM who appears much older than stated age. NAD. LUNGS: Diminished in bases bilaterally, no wheezes or rhonchi appreciated CARDIOVASCULAR: Regular rate and rhythm. ABDOMEN: Soft, nontender, nondistended. BS normal x 4 quad. EXTREMITIES: No edema. Non-tender. Peripheral pulses +2/4. NEUROLOGIC: A&O x3. Nonfocal PSYCHIATRIC: Cooperative. Appropriate mood and affect. SKIN: Warm, dry, intact. Abrasions and bruises noted on b/l upper extremities. Results & Data Results & Data ([facility]) Vital Signs (Past 12 Hours) Vital Signs Temp Pulse Pulse Resp BP BP Pulse Ox 06/02/22 07:43 36.7 C 84 16 89/67 L 97 06/02/22 07:28 81 06/02/22 03:27 36.9 C 89 18 83/63 L 82/64 L 97 06/02/22 03:00 89 Laboratory Results 06/02/22 07:31 06/02/22 07:30 PG Care Time/CCT Total # of Minutes Spent Total Time Spent with Patient: Total time spent is greater than 50% in coordination of care (as documented) at patient's floor/unit and/or counseling patient: Coding Level of Care Code 11171 Subseq Hosp Care Lvl 3 Diagnoses Hypoglycemia E16.2 Sepsis A41.9 Pneumonia J18.9 Protein calorie malnutrition E46 Ascites R18.8 Insulin dependent diabetes mellitus E11.9; Z79.4 Anemia D64.9 Hypothyroidism E03.9 Alcoholism F10.20
[2022-06-02] MEDS ORDERED: SODIUM CHLORIDE 0.9% 1000ML 1,000 ML IV SCH (14:30)
--- NOTE | 2022-06-02 15:15 | CT Scan Report ---
CT chest diagnostic wo con CLINICAL HISTORY: weight loss, tobacco use, cough TECHNIQUE: Multidetector row helical CT of the chest was performed. Coronal and sagittal reformations were obtained. Automated dose lowering techniques and/or adjustment according to patient size were u tilized for this exam. CT DOSE: 210.15 mGy.cm Comparison: Comparison is made to chest radiograph 06/01/2022 FINDINGS: Lungs and pleura: Bilateral pleural effusions are seen. There is associated atelectasis. Scattered em physematous changes are noted. Focal scarring is seen most prominently at the left upper lobe. Bronch iectasis and bronchial wall thickening are seen. Multiple tiny pulmonary nodules are seen measuring u p to 3 mm in diameter. Heart and pericardium: Heart size is normal. No pericardial effusion. Vessels: Unremarkable. Mediastinum and prema: Unremarkable. Chest wall and lower neck: Patient is cachectic. Abdomen: Ascites is seen. Calcifications of the pancreas are noted. Bones: Degenerative changes in the thoracic spine. IMPRESSION: Small bilateral pleural effusions with associated atelectasis. Tiny pulmonary nodules are seen measur ing up to 3 mm. No acute abnormalities. No findings definitely diagnostic of malignancy. ACT 112: Negative or not required by law. Electronically signed by: Edwin Dupont M.D. 06/02/2022 3:13 PM
[2022-06-02] MEDS: CARBOHYDRATES FOR HYPOGLYCEMIA PO PRN (16:36)
[2022-06-02] MEDS: GLUCOSE 10 TAB/TUBE PO PRN (16:58)
[2022-06-02] MEDS: D5W AND NSS 1,000 ML IV SCH (17:09)
[2022-06-02] MEDS: DEXTROSE 50% 50 ML SYRINGE IV PRN (17:20)
[2022-06-03] MEDS: D5W AND NSS 1,000 ML IV SCH (03:13)
[2022-06-03] MEDS: LEVOTHYROXINE SODIUM 50 MCG TABLET PO SCH (05:45)
[2022-06-03] MEDS ORDERED: LACTATED RINGER'S 1,000 ML IV ONE (07:29)
[2022-06-03 07:33] LABS: Alanine Aminotransferase 21 U/L (7-52); Albumin Level < 1.5 gm/dl (3.4-5.0); Alkaline Phosphatase 95 U/L (34-104); Anion Gap 4 (3-11); BUN Creatinine Ratio 39.1 (10-20); Bilirubin,Total 0.4 mg/dl (0.2-1.0); Blood Urea Nitrogen 25 mg/dl (6-23); Calcium 6.6 mg/dl (8.5-10.1); Carbon Dioxide 23 mmol/L (21-32); Chloride 110 mmol/L (98-107); Creatinine Clr Calc Pharmacy 81.8 ml/min; Est GFR (African American) 129.6 ml/min; Est GFR (Non-African American) 111.8 ml/min; Glucose 79 mg/dl (70-99(Fasting)); Magnesium 1.6 mg/dl (1.7-2.4); Sodium 137 mmol/L (136-145); Total Protein 3.7 gm/dl (6.0-8.3)
[2022-06-03 07:48] LABS: Basophils # (auto) 0.02 K/uL (0-0.2); Basophils % (auto) 0.2 %; Eosinophils # (auto) 0.03 K/uL (0-0.50); Eosinophils % (auto) 0.3 %; Hematocrit (blood only) 29.2 % (40.1-51.0); Hemoglobin 9.9 g/dl (14.0-18.0); Immature Granulocytes # (auto) 0.16 K/uL (0.00-0.02); Immature Granulocytes % (auto) 1.4 %; Lymphocytes # (auto) 2.23 K/uL (1.2-3.4); Lymphocytes % (auto) 20.1 %; Mean Corpuscular Hemoglobin 37.1 pg (25.0-34.0); Mean Corpuscular Hgb Conc 33.9 g/dL (32.0-36.0); Mean Corpuscular Volume 109.4 fL (80.0-100.0); Mean Platelet Volume 12.1 fL (9.4-12.4); Monocytes # (auto) 0.71 K/uL (0.24-0.82); Monocytes % (auto) 6.4 %; Neutrophils # (auto) 7.95 K/uL (1.4-6.5); Neutrophils % (auto) 71.6 %; Platelet Count 158 K/uL (130-400); RDW Coefficient of Variation 17.7 % (11.5-14.5); RDW Standard Deviation 71.1 fL (36.4-46.3); Red Blood Count 2.67 M/uL (4.63-6.08)
[2022-06-03] MEDS: GABAPENTIN 300 MG CAP PO SCH ×2 (08:14→19:29)
[2022-06-03] MEDS: ASPIRIN 81 MG ECTAB PO SCH (08:14)
[2022-06-03] MEDS: CHOLECALCIFEROL 5,000 UNITS 125 MCG TAB PO SCH (08:14)
[2022-06-03] MEDS: INSULIN ASPART PER UNIT SC SCH ×4 (08:16→22:37)
[2022-06-03] MEDS: AZITHROMYCIN 500 MG in DEXTROSE 5% 250 ML IV SCH (08:22)
[2022-06-03 08:32] LABS: Potassium 3.7 mmol/L (3.5-5.1)
[2022-06-03 08:35] LABS: Estimated Average Glucose 105 mg/dl; Hemoglobin A1C 5.3 % (4.5-5.6)
[2022-06-03] MEDS ORDERED: MAGNESIUM SULFATE / D5W 1 GM/100 ML BAG IV ONE (11:28)
--- NOTE | 2022-06-03 11:33 | Hospitalist Progress Note ---
Date of Service June 03, 2022 Assessment & Plan (1) SIRS (systemic inflammatory response syndrome): Plan: - Most definitely has SIRS manifested by leukocytosis, tachycardia and now hypotension but as far as a specific source of infection, that remains unclear - Blood cultures ordered and are pending - Repeat cbc this AM with increased wbc count from 13,500 to 14,500 w/ left shift - Empiric abx given in ED included Doxy and Cefepime, continued on Cefepime alone - IVF in form of D5 1/2NSS ordered on admit d/t hypoglycemia - UA not suggestive of infection - Yesterday and today hypotensive with systolic BP in the 80s - No significant findings of pna on CXR and cough is chronic for him - Elevated lactate ?secondary to extreme dehydration, hypogylcemia and malnutr ition - Abx changed on 06/02 to cover for SBP in light of acites on CT --> d/c Cefepime and started Rocephin + Zithromax for atypical coverage on 06/02 - Markedly elevated procalcitonin level of 170, today down to 53 - Resumed on maintenance fluids with NSS but notified by RN on 06/02 that BS dropped to 47, was snacked, given glucagon and then D50, fluids changed back to D5NS - This AM, D5NS stopped to determine if pt will have additional episodes of hypogylcemia - if he does, further w/u warranted and will d/w endocrine ?insulinoma - Coritsol level this AM is WNL @ 10 thus excluding adrenal insufficiency (2) Hypoglycemia: Plan: - Presenting sugar 56 on BMP, 58 POC glucose. Patient has not been eating much over the past 2 weeks, yet intermittently taking his insulin. - D5 1/2 NSS @ 125 cc/hr ordered on admit - Held home insulin, started on SSI, regular diet, no carb ratio. - Lesion in the pancreatic tail noted on ultrasound 06/02, ?IPMN - consider MRCP (3) Pneumonia: Plan: - Treated by admitting team as such but clinically and radiographically, does not appear to have evidence of this - Patient without sputum production, not sure that sputum culture would be obtainable. - Lactate elevated, likely multifactorial due to severe malnutrition/dehydration and ?infection. - Obtained CT chest w/o contrast that demonstrated no evidence of PNA - This issue has been excluded/ruled out (4) Protein calorie malnutrition: Plan: - Patient states he only eats 1 or 2 times a day, for the past 2 weeks he has not been eating very much at all, however his weight loss has apparently been going ongoing for several months. Patient states he was diagnosed with pancreatic cancer in 2010 along with his diabetes, however I see no oncology notes or no note of this or any cancer for that matter in his PCP notes. It seems that his PCP was recommending chest CT, CT A/P, and UA to rule out malignancies. - CXR, CT A/P here without any evidence for mass or any kind of infectious in flammatory process. - Patient's abdomen is somewhat tender, with abdominal and pelvic ascites are no justine on CT. Radiology consulted for diagnostic paracentesis. - Will also obtain a CT chest w/o contrast - Consult RD for nutritional supplementations (5) Ascites: Plan: - Read as large on CT but RUQ ultrasound obtained showing only mild amount, not enough to perform bedside diagnostic paracentesis - No evidence of cirrhosis via ultrasound - Consulted radiology for diagnostic paracentesis-issue will be risk for peritoneal fluid being sterilized d/t receiving abx - Coags ordered, elevated INR of 1.2 - Very LOW index of suspicion for SBP (6) Insulin dependent diabetes mellitus: Plan: - Presented with blood sugar of 56, started on D5 and half-normal saline 125 cc/hour. Sugar improving, patient hungry and being fed. - Hold him insulin (Lantus 2 units twice daily with NovoLog 3 units at mealtimes) cover with SSI without carb ratio. - A1c ordered and pending as they are not drawn over the weekends - Continue gabapentin for neuropathy. - [place] diet given hypoglycemia & severe malnutrition. (7) Anemia: Plan: - Appears stable, macrocytic - Vitamin B12 and folate not deficient - Iron 21 - No evidence of blood loss - Slight drop in hgb still of no concern (dilutional) (8) Hypothyroidism: Plan: - Continue levothyroxine. - TSH 5.4, free T4 1.16. - Would hold off on any adjustments in Synthroid at present (9) Alcoholism: Plan: - History of, last drink in 2019. - No evidence of cirrhosis Plan: Interventions as outlined above. Continue to trend morning labs. SCDs ordered for DVT ppx. Plan discussed extensively with Dr. Angelo Graham. Further orders as warranted. Admission and Anticipated Discharge Date Admission Date: June 01, 2022 Subjective Patient was seen on daily rounds this morning. He reports that he continues to feel better each day. Was able to eat some breakfast this morning. Denies n/v. Had a BM this morning. No diarrhea, BRB or melena. He denies abdominal pain. He continues to have a cough which is chronic and he feels that he needs to cough up mucus but isn't able to. Denies fever/chills. Review of Systems Review of Systems: All systems reviewed and are unremarkable except as noted in HPI and below. Denies fever, chills, fatigue, headache, nasal congestion, sore throat, chest pain, shortness of breath, palpitations, orthopnea, PND, abdominal pain, n/v/d, constipation, dysuria, hematuria, frequency, back pain, joint pain or swelling, easy bruising or bleeding, skin lesions or rashes. Physical Exam Physical Exam: GENERAL: 51 yo chronically ill appearing markedly underweight WM who appears much older than stated age. NAD. LUNGS: Diminished in bases bilaterally, no wheezes or rhonchi appreciated CARDIOVASCULAR: Regular rate and rhythm. ABDOMEN: Soft, nontender, nondistended. BS normal x 4 quad. EXTREMITIES: No edema. Non-tender. Peripheral pulses +2/4. NEUROLOGIC: A&O x3. Nonfocal PSYCHIATRIC: Cooperative. Appropriate mood and affect. SKIN: Warm, dry, intact. Abrasions and bruises noted on b/l upper extremities. Results & Data Results & Data ([facility]) Vital Signs (Past 12 Hours) Vital Signs Temp Pulse Pulse Pulse Resp BP BP 06/03/22 08:04 85 06/03/22 07:43 36.8 C 88 16 87/63 L 06/03/22 03:47 36.6 C 84 16 87/61 L 06/02/22 23:30 36.7 C 91 H 16 91/61 L Pulse Ox 06/03/22 08:04 06/03/22 07:43 96 06/03/22 03:47 95 06/02/22 23:30 96 Laboratory Results 06/03/22 06:09 06/03/22 07:32 Jujuwn=823, Potassium=3.7, Mbmiqpic=121, CO2=23, BUN=25, Creat=0.64, Glucose=79 Mag=1.6, Albumin= <1.5 Diagnostic Findings US abdomen limited CLINICAL HISTORY: New cirrhosis? TECHNIQUE: Multiple real-time sonographic images of the right upper quadrant were obtained. Comparison: Comparison is made to CT abdomen pelvis 06/01/2022 FINDINGS: The liver is diffusely homogenous with normal contour and echogenicity. No focal mass lesions are seen. No intrahepatic ductal dilatation is seen. No gallstones or sludge are identified within the gallbladder. The gallbladder wall is not thickened. There is no pericholecystic fluid present. A sonographic Mur phy's sign was not elicited by the technical specialist cytogenetics. The common duct measures 0 point cm in diameter at the level of the hepatic artery. The pancreas is heterogeneous with a hypoechoic area seen in the tail measuring 0.5 x 0.7 x 1.0 cm. The right kidney shows normal echogenicity, cortical thickness and renal contour. The right kidney shows no evidence of hydronephrosis or mass. Mild ascites is seen. Right pleural effusion is partially visualized. IMPRESSION: No evidence of acute cholecystitis. The pancreas is heterogeneous compatible with diffuse calcifications of chronic pancreatitis. A hypoechoic lesion in the pancreatic tail is seen, nonspecific, may represent IPMN. If not previously inez luated, nonemergent MRCP can be performed. ACT 112: Negative or not required by law. Electronically signed by: Edwin Dupont M.D. 06/02/2022 11:[address] 06/02/22 14:14 CT chest diagnostic wo con CLINICAL HISTORY: weight loss, tobacco use, cough TECHNIQUE: Multidetector row helical CT of the chest was performed. Coronal and sagittal reformations were obtained. Automated dose lowering techniques and/or adjustment according to patient size were utilized for this exam. CT DOSE: 210.15 mGy.cm Comparison: Comparison is made to chest radiograph 06/01/2022 FINDINGS: Lungs and pleura: Bilateral pleural effusions are seen. There is associated atelectasis. Scattered emphysematous changes are noted. Focal scarring is seen most prominently at the left upper lobe. Bronchiectasis and bronchial wall thickening are seen. Multiple tiny pulmonary nodules are seen measuring up to 3 mm in diameter. Heart and pericardium: Heart size is normal. No pericardial effusion. Vessels: Unremarkable. Mediastinum and prema: Unremarkable. Chest wall and lower neck: Patient is cachectic. Abdomen: Ascites is seen. Calcifications of the pancreas are noted. Bones: Degenerative changes in the thoracic spine. IMPRESSION: Small bilateral pleural effusions with associated atelectasis. Tiny pulmonary nodules are seen measuring up to 3 mm. No acute abnormalities. No findings definitely diagnostic of malignancy. ACT 112: Negative or not required by law. Electronically signed by: Edwin Dupont M.D. 06/02/2022 3:13 PM PG Care Time/CCT Total # of Minutes Spent Total Time Spent with Patient: Total time spent is greater than 50% in coordination of care (as documented) at patient's floor/unit and/or counseling patient: Coding Level of Care Code 46524 Subseq Hosp Care Lvl 3 Diagnoses Hypoglycemia E16.2 Pneumonia J18.9 Protein calorie malnutrition E46 Ascites R18.8 Insulin dependent diabetes mellitus E11.9; Z79.4 Anemia D64.9 Hypothyroidism E03.9 Alcoholism F10.20 SIRS (systemic inflammatory response syndrome) R65.10
[2022-06-03] MEDS: cefTRIAXone SODIUM 1,000 MG in DEXTROSE 5% 50 ML IV SCH (14:21)
--- NOTE | 2022-06-03 18:02 | Magnetic Resonance Report ---
MRCP CLINICAL HISTORY: Pancreatic tail lesion. COMPARISON STUDY: Abdominal CT dated 06/01/2022. TECHNIQUE: Abdominal MRCP is performed utilizing T2 weighted sequences in the axial and coronal plane s. IV contrast was not administered for this examination. 3-D reformats are created and assessed. The examination is significantly degraded by a large volume of abdominal ascites. FINDINGS: The gallbladder is mildly distended. No gallstones are identified. Mild gallbladder wall thickening i s nonspecific and likely due to hepatocellular disease and ascites. There is no intra or extrahepatic biliary ductal dilatation. The common bile duct measures up to 2 mm diameter. No intraluminal fillin g defects are seen to suggest choledocholithiasis. The pancreatic duct near the ampulla is normal in caliber. There are filling defects within the pancreatic duct, likely representing stones. The distal pancreatic duct appears dilated but is not well evaluated. There is a large volume of abdominopelvic ascites. The liver is cirrhotic in morphology and heterogen eous in signal intensity. The unenhanced spleen, adrenal glands, and kidneys are grossly normal. The abdominal aorta is normal in caliber. The pancreas is heterogeneous. There is no evidence of bowel ob struction. Edema is suggested throughout the small bowel loops and colon. There are moderate pleural effusions with dependent atelectasis. IMPRESSION: 1. There is no intra or extrahepatic biliary ductal dilatation. 2. There are no gallstones identified. 3. The gallbladder is distended and appears mildly thick-walled, likely secondary to cirrhosis and as cites. 4. Filling defects within the pancreatic duct likely represent stones. This was better assessed on recent abdominal CT scan. There is dilatation of the distal pancreatic duct, likely related to the more proximal ductal stones. This is not well evaluated on this examination. 5. There is diffuse edema of the small bowel and colon. Clinical correlation will be essential. 6. Moderate pleural effusions with dependent atelectasis. 7. Cirrhotic liver morphology. 8. Additional findings as above. Dictated: 06/03/2022 5:36 PM Transcribed: 06/03/2022 5:57 PM Yasmin [id number] [id number] Electronically signed by: Hawk Murray M.D. 06/03/2022 6:00 PM
[2022-06-04] MEDS ORDERED: MELATONIN 3 MG TAB PO PRN (00:08)
[2022-06-04] MEDS: LEVOTHYROXINE SODIUM 50 MCG TABLET PO SCH (05:35)
[2022-06-04 06:55] LABS: Basophils # (auto) 0.02 K/uL (0-0.2); Basophils % (auto) 0.1 %; Eosinophils # (auto) 0.01 K/uL (0-0.50); Eosinophils % (auto) 0.1 %; Hematocrit (blood only) 31.3 % (40.1-51.0); Hemoglobin 10.8 g/dl (14.0-18.0); Immature Granulocytes # (auto) 0.17 K/uL (0.00-0.02); Immature Granulocytes % (auto) 1.2 %; Lymphocytes # (auto) 2.29 K/uL (1.2-3.4); Lymphocytes % (auto) 15.7 %; Mean Corpuscular Hgb Conc 34.5 g/dL (32.0-36.0); Mean Corpuscular Volume 107.2 fL (80.0-100.0); Mean Platelet Volume 12.5 fL (9.4-12.4); Monocytes # (auto) 0.62 K/uL (0.24-0.82); Monocytes % (auto) 4.3 %; Neutrophils # (auto) 11.46 K/uL (1.4-6.5); Neutrophils % (auto) 78.6 %; Nucleated RBC # (auto) 0.03 K/uL (0-0); Nucleated RBC % (auto) 0.2 %; Platelet Count 173 K/uL (130-400); RDW Coefficient of Variation 16.6 % (11.5-14.5); RDW Standard Deviation 64.9 fL (36.4-46.3); Red Blood Count 2.92 M/uL (4.63-6.08); White Blood Count 14.57 K/ul (4.8-10.8)
[2022-06-04 07:22] LABS: Anion Gap 4 (3-11); BUN Creatinine Ratio 33.8 (10-20); Blood Urea Nitrogen 23 mg/dl (6-23); Carbon Dioxide 24 mmol/L (21-32); Chloride 108 mmol/L (98-107); Creatinine Clr Calc Pharmacy 82.3 ml/min; Est GFR (African American) 126.4 ml/min; Glucose 98 mg/dl (70-99(Fasting)); Potassium 3.6 mmol/L (3.5-5.1); Sodium 136 mmol/L (136-145)
[2022-06-04 07:33] LABS: Alanine Aminotransferase 29 U/L (7-52); Albumin Level < 1.5 gm/dl (3.4-5.0); Alkaline Phosphatase 111 U/L (34-104); Aspartate Aminotransferase 47 U/L (13-39); Bilirubin,Total 0.4 mg/dl (0.2-1.0); Magnesium 1.8 mg/dl (1.7-2.4); Total Protein 4.2 gm/dl (6.0-8.3)
[2022-06-04] MEDS ORDERED: ALBUMIN 25% 100 mL 25 GM/100 ML VIAL IV ONE (07:35)
[2022-06-04] MEDS ORDERED: STAT IV STA (07:37)
[2022-06-04] MEDS: GABAPENTIN 300 MG CAP PO SCH ×2 (07:37→20:16)
[2022-06-04] MEDS: CHOLECALCIFEROL 5,000 UNITS 125 MCG TAB PO SCH (07:37)
[2022-06-04] MEDS: ASPIRIN 81 MG ECTAB PO SCH (07:37)
[2022-06-04] MEDS: AZITHROMYCIN 500 MG in DEXTROSE 5% 250 ML IV SCH (07:45)
[2022-06-04] MEDS: INSULIN ASPART PER UNIT SC SCH ×3 (07:46→17:22)
[2022-06-04] MEDS ORDERED: CALCIUM GLUCONATE 10% 1,000 MG in DEXTROSE 5% 50 ML IV ONE (08:00)
--- NOTE | 2022-06-04 09:16 | Urology Consultation ---
Date of Consultation June 04, 2022 Assessment & Plan (1) Urinary retention: 51yo M admitted with sepsis and hypoglycemia. Pt bladder scanned for >500ml this morning and attempted straight catheterization x 2 by nursing, however this was unsuccessful. Urology consulted for urinary retention, difficult catheterization. See attending note for further details. Supervising Physician Co-Signing Physician Notes Agree with above I attempted to place a Cat catheter at the bedside but felt resistance before I anticipated I would be in the bladder I was unable to manipulate this catheter into positionthis was a 22 [place] coud, I also tried a 16 [place] straight and had the same resistance in the same location I attempted to utilize a 5 [place] open-ended catheter to access the bladder but again felt resistance in a similar location. Based upon the catheter this was approximately 20 cm from the meatus with resistance was pretty considerable. We then grabbed a flexible cystoscope and passed the cystoscope per urethra. Inspection revealed a healthy-appearing urethra urethra without any definitive false passage. No strictures. I was able to advance the scope through the prostate and directly into the bladder. At that time I advanced a wire through the lumen of the scope and left in place. Interestingly, this was about the same length where resistance was felt previously implying that we likely had access to the bladder but he had an empty bladder in a short length from bladder to meatus. A 16 [place] sleetmute tip catheter was placed over the wire and the balloon inflated with drainage of the irrigant. He tolerated the procedure well. We will plan to leave this catheter in place until medically stable enough to remove it. History of Present Illness Reason for Consultation: Urinary retention, difficult catheterization Attending Physician: Joi Ramos MD History of Present Illness 51-year-old male with a past medical history including severe malnutrition, hypothyroidism, diabetes, neuropathy, and history of alcohol abuseadmitted with sepsis and hypoglycemia. Urology consulted for urinary retention, difficult catheterization. Per nursing, patient was bladder scanned for >500ml earlier this morning. Nursing attempted straight catheterization x2 but this was unsuccessful. Chart review- Afebrile, hypotensive. WBC 14.57, creatinine 0.68. UA on admission without evidence of infection. Blood cultures pending. CT abdomen pelvis IMPRESSION: 1. Marked abdominal and pelvic ascites. 2. Diffuse mucosal thickening of the large and small bowel with no evidence for bowel loop dilatation or obstruction. 3. Moderately large bilateral pleural effusions with bibasilar atelectasis. 4. Diffuse calcification of the body the pancreas with no focal mass identified. 5. Additional nonacute findings are delineated above. Patient examined at bedside. Awake, resting in bed on arrival. No acute distress. Reports he has been voiding spontaneously, but small amounts. Also notes urinary urgency and hesitancy. Denies hematuria or dysuria. Denies prior urological history. Denies pertinent family history. States he has never seen a urologist. Allergies Allergy/AdvReac Type Severity Reaction Status Date / Time No Known Allergies Allergy Unknown Verified 03/26/22 15:02 Home Medications Medication Instructions Recorded Confirmed Type acetaminophen 500 mg tablet 1,000 mg PO TID PRN 09/19/21 06/01/22 History insulin aspart U-100 100 unit/mL 0 unit SQ TID 09/19/21 06/01/22 History (3 mL) subcutaneous pen (Novolog Flexpen U-100 Insulin aspart) insulin glargine 100 unit/mL (3 0 unit SUBCUT BID 09/19/21 06/01/22 History mL) subcutaneous pen (Lantus Solostar U-100 Insulin) blood sugar diagnostic #100 ea 02/04/22 06/01/22 Rx gabapentin 300 mg capsule 300 mg PO BID #60 cap 03/06/22 06/01/22 Rx levothyroxine 50 mcg tablet 50 mcg PO DAILY #30 tab 03/06/22 06/01/22 Rx aspirin 81 mg tablet,delayed 81 mg PO DAILY #30 tab 03/19/22 06/01/22 Rx release (Adult Aspirin Regimen) cholecalciferol (vitamin D3) 125 250 mcg PO DAILY #30 cap 03/26/22 06/01/22 Rx mcg (5,000 unit) capsule Wheelchair (Manual) #1 ea 03/27/22 06/01/22 Rx blood sugar diagnostic (OneTouch #100 ea 05/13/22 06/01/22 Rx Ultra Test) hydrocodone 5 mg-acetaminophen 325 0.5 - 1 tab PO Q12H PRN #30 tab 05/13/22 06/01/22 Rx mg tablet Patient History Medical History Chronic back pain Depression Hyperglycemia Migraine Osteoarthritis Uncontrolled type 2 diabetes with neuropathy Uncontrolled type II diabetes mellitus Vitamin D deficiency Surgical History History of esophagogastroduodenoscopy (EGD) History of right inguinal hernia repair History of tooth extraction all teeth removed Family History Father Family history of diabetes mellitus Mother Cancer Breast cancer Other No family history of adverse response to anesthesia Denies family history of Ovarian cancer Prostate cancer Myocardial infarction Colorectal cancer Social History Smoking Status: Current some day smoker Tobacco Type: Cigarettes Age Started Using Tobacco: 12; Cigarettes Per Day: 20 a day; Second Hand Exposure: Yes (parents smoked); Do You Dip or Chew Tobacco: No; Hx Alcohol Use: No Hx Substance Use: Yes Non-Prescribed Medications: Marijuana Last Used Substance: Days (ago) Last Used Substance Other:: for pain Preferred Language: Sudanese Communication Ability: Effective Repairer Finished Metal Required: No Beliefs That Will Affect Care: None marital status: Single Current Living Situation: Alone current occupational status: disabled How many Children do You have: 1 Feels Safe at Home: Yes Childhood Exposure to Second-Hand Smoke: No caffeine: Yes Dental Care, Regularly: No Physical Activity Frequency: Does not Exercise Seatbelt Use: sometimes Sunscreen Use: No Assistive Devices: Crutches and Wheelchair Review of Systems Review of Systems: All systems reviewed & are unremarkable except as noted in HPI & below Physical Exam Constitutional: + thin; no acute distress Chronically ill appearing Neck: normal visual inspection Respiratory: no respiratory distress and no labored breathing Gastrointestinal (Abdomen): Inspection/Auscultation: abdomen normal to inspection Musculoskeletal: Head/Neck/Chest: normocephalic Skin: Warm and dry Neurologic: moves all extremities and awake Psychiatric: Orientation: alert, oriented x 3 and cooperative Results & Data ([facility]) Vital Signs (Past 12 Hours) Vital Signs Temp Pulse Pulse Pulse Resp BP Pulse Ox 06/04/22 08:18 36.3 C L 97 H 18 80/63 L 94 06/04/22 07:21 90 06/04/22 02:39 36.4 C L 91 H 20 77/54 L 95 06/04/22 01:20 97 H 06/03/22 22:50 36.4 C L 100 H 20 82/61 L 97 PG Care Time/CCT Total # of Minutes Spent Total Time Spent with Patient: Total time spent is greater than 50% in coordination of care (as documented) at patient's floor/unit and/or counseling patient: Coding Level of Care Code 82114 Inpt Consult Level 4 Diagnoses Urinary retention R33.9
[2022-06-04] MEDS ORDERED: traMADol HCL 50 MG TABLET PO STA (09:25)
[2022-06-04] MEDS: THIAMINE HCL 500 MG in SODIUM CHLORIDE 0.9% 50 ML IV SCH ×2 (09:43→15:08)
[2022-06-04] MEDS ORDERED: traMADol HCL 50 MG TABLET PO PRN (09:57)
--- NOTE | 2022-06-04 12:11 | Ultrasound Report ---
PARACENTESIS UNDER ULTRASOUND GUIDANCE CLINICAL HISTORY: Ascites. COMPARISON STUDY: Abdominal CT dated 06/01/2022. PROCEDURE: The risks, benefits, and alternatives to the procedure were discussed with the patient who voiced understanding. Written informed consent was obtained. Following real-time ultrasound localiza tion of a suitable pocket of fluid in the left lower quadrant, the abdomen was prepped and draped in the usual sterile fashion. The skin and soft tissues were anesthetized with 1% lidocaine. The sheathe d paracentesis needle was inserted and approximately 1 liter of straw-colored ascitic fluid was remov ed by vacuum suction consent for laboratory analysis. The procedure was well tolerated and without im mediate complication. The patient left the department in satisfactory condition. IMPRESSION: Successful ultrasound-guided paracentesis with removal of approximately 1 liter of asciti c fluid. ACT 112: Negative or not required by law. Electronically signed by: Hawk Murray M.D. 06/04/2022 12:09 PM
[2022-06-04] MEDS: cefTRIAXone SODIUM 1,000 MG in DEXTROSE 5% 50 ML IV SCH (13:22)
--- NOTE | 2022-06-04 13:29 | Hospitalist Progress Note ---
Date of Service June 04, 2022 Assessment & Plan (1) SIRS (systemic inflammatory response syndrome): Plan: - Most definitely has SIRS manifested by leukocytosis, tachycardia and now hypotension but as far as a specific source of infection, that remains unclear - Blood cultures ordered and are pending - Repeat cbc this AM with increased wbc count from 13,500 to 14,500 w/ left shift - Empiric abx given in ED included Doxy and Cefepime, continued on Cefepime alone - IVF in form of D5 1/2NSS ordered on admit d/t hypoglycemia - UA not suggestive of infection - Yesterday and today hypotensive with systolic BP in the 80s - No significant findings of pna on CXR and cough is chronic for him - Elevated lactate ?secondary to extreme dehydration, hypoglycemia and malnutr ition, as well as liver disease - Abx changed on 06/02 to cover for SBP in light of acites on CT --> d/c Cefepime and started Rocephin + Zithromax for atypical coverage on 06/02 - Markedly elevated procalcitonin level of 170, today down to 53 - Resumed on maintenance fluids with NSS but notified by RN on 06/02 that BS dropped to 47, was snacked, given glucagon and then D50, fluids changed back to D5NS - Cortisol level WNL @ 10 thus excluding adrenal insufficiency - Highly suspicious that this patient either has an unknown malignancy that has spread to his liver OR liver failure d/t cirrhosis (2) Hypoglycemia: Plan: - Presenting sugar 56 on BMP, 58 POC glucose. Patient has not been eating much over the past 2 weeks, yet intermittently taking his insulin. - D5 1/2 NSS @ 125 cc/hr ordered on admit - Held home insulin, started on SSI, regular diet, no carb ratio. - Lesion in the pancreatic tail noted on ultrasound 06/02, MRCP performed, evidence of chronic pancreatitis with stones in pancreatic duct. Spoke w/ GI, no indication for ERCP at this time. - Cirrhotic liver and acites noted on MRCP (3) Protein calorie malnutrition: Plan: - Patient states he only eats 1 or 2 times a day, for the past 2 weeks he has not been eating very much at all, however his weight loss has apparently been going ongoing for several months. Patient states he was diagnosed with pancreatic cancer in 2010 along with his diabetes, however I see no oncology notes or no note of this or any cancer for that matter in his PCP notes. It seems that his PCP was recommending chest CT, CT A/P, and UA to rule out malignancies. - CXR, CT A/P here without any evidence for mass or any kind of infectious inflammatory process. - Patient's abdomen is somewhat tender, with abdominal and pelvic ascites are noted on CT. Radiology consulted for diagnostic paracentesis, performed 06/04, results of fluid analysis pending - Consult RD for nutritional supplementations - Given a dose of IV Albumin and started on IV Thiamine as well as a dose of IV Calcium - Albumin has been undetectable on labs the last two days - Suspicious of malignancy, MRCP obtained d/t ?findings of IPMN on RUQ u ltrasound. MRCP results as above, acites and cirrhotic liver noted. - CEA and CA 19-9 obtained. CEA elevated, CA 19-9 pending. Per primary care records, was set up for o/p screening colo 2 years ago but didn't go as he didn't have transportation. ? metastatic colon ca but no obvious masses noted vi a imaging and no suspicious lesions noted on imaging of liver (4) Ascites: Plan: - Read as large on CT but RUQ ultrasound obtained showing only mild amount, not enough to perform bedside diagnostic paracentesis - No evidence of cirrhosis via ultrasound - Consulted radiology for diagnostic paracentesis-issue will be risk for padmini toneal fluid being sterilized d/t receiving abx - Coags ordered, elevated INR of 1.2 - Very LOW index of suspicion for SBP - Underwent US-guided paracentesis today, 1L of fluid sent for analysis - May require additional doses of Albumin (5) Insulin dependent diabetes mellitus: Plan: - Presented with blood sugar of 56, started on D5 and half-normal saline 125 cc/hour. Sugar improving, patient hungry and being fed. - Hold him insulin (Lantus 2 units twice daily with NovoLog 3 units at mealtimes) cover with SSI without carb ratio. - A1c ordered and pending as they are not drawn over the weekends - Continue gabapentin for neuropathy. - [place] diet given hypoglycemia & severe malnutrition. (6) Anemia: Plan: - Appears stable, macrocytic - Vitamin B12 and folate not deficient - Iron 21 - No evidence of blood loss - H&H stable (7) Hypothyroidism: Plan: - Continue levothyroxine. - TSH 5.4, free T4 1.16. - Would hold off on any adjustments in Synthroid at present (8) Alcoholism: Plan: - History of, last drink in 2019. - Evidence of cirrhosis noted on MRCP with acites Plan: Given patient's progressive decline, had a lengthy discussion with him at bedside that given his undetectable albumin level, now with evidence of third spacing and accumulation of acites, and persistent hypotension, his overall prognosis is poor. I told him that at this time, his options for treatment are limited and that it is very likely his condition will only decline further until he would have multisystem organ failure. Noah seemed to understand that he is dying and had a degree of acceptance. He has two brothers, one (Henri) is his oldest brother and he would like to be primarily making decisions about his care if he should become incapacitated and not able to do so for himself. He does have a son but seems that he is estranged. We discussed code status and he understands his poor prognosis and likely what would be a poor outcome if we were to attempt a full resuscitation and he has voiced his wish to be DNR/DNI. Therefore, this change has been reflected in his chart. For now, await results of peritoneal fluid analysis. Labs ordered/pending. Palliative care consult has been d/w pt who is agreeable. Discussed case with Dr. Liang, appreciate her assistance in managing. Repeat labs tomorrow morning have been ordered. Tramadol given for c/o back pain and I have increased his Melatonin to 6mg at HS prn sleep. Case and plan has been extensively d/w Dr. Ramos. Admission and Anticipated Discharge Date Admission Date: June 01, 2022 Supervising Physician Co-Signing Physician Notes PA Supervision Note: I did not personally see or examine the patient today, but I verified all ortiz points of SUSAN Estrada's assessment and plan with the following exceptions/additions: BP did improve somewhat this AM with IV albumin and IV calcium but then dropped low again after paracentesis. Will add 3 more doses of IV albumin Ascitic fluid consistent with SBP--> given possible resistance to ceftriaxone--> change abx to Zosyn as our pharmacy does not have cefotaxime available which is first line recommended. Follow ascites culture. Also added on fluid CYTOLOGY to pleural fluid Very complex issues. Most likely underlying malignancy vs end stage cirrhosis Subjective Patient was seen on daily rounds this morning. He verbalizes complaints this morning of difficulty sleeping and low back pain. He does have PRN Melatonin ordered which he got 3mg dose at 0125 this morning. He denies n/v/d or abdominal pain. He denies chest pain or dyspnea. Continues to have nonproductive cough which is chronic. Remains afebrile but hypotensive with systolic BP 70-80s. For US-guided diagnostic paracentesis today. Review of Systems Review of Systems: All systems reviewed and are unremarkable except as noted in HPI and below. Denies fever, chills, fatigue, headache, nasal congestion, sore throat, chest pain, shortness of breath, palpitations, orthopnea, PND, abdominal pain, n/v/d, constipation, dysuria, hematuria, frequency, back pain, joint pain or swelling, easy bruising or bleeding, skin lesions or rashes. Physical Exam Physical Exam: GENERAL: 51 yo chronically ill appearing markedly underweight WM who appears much older than stated age. NAD. LUNGS: Diminished in bases bilaterally, no wheezes or rhonchi appreciated CARDIOVASCULAR: Regular rate and rhythm. ABDOMEN: Soft, nontender, nondistended. BS normal x 4 quad. EXTREMITIES: Trace edema in upper extremities. Non-tender. Peripheral pulses +2/4. NEUROLOGIC: A&O x3. Nonfocal PSYCHIATRIC: Cooperative. Appropriate mood and affect. SKIN: Warm, dry, intact. Abrasions and bruises noted on b/l upper extremities. Results & Data Results & Data ([facility]) Vital Signs (Past 12 Hours) Vital Signs Temp Pulse Pulse Pulse Resp BP Pulse Ox 06/04/22 08:18 36.3 C L 97 H 18 80/63 L 94 06/04/22 07:21 90 06/04/22 02:39 36.4 C L 91 H 20 77/54 L 95 Laboratory Results 06/04/22 05:36 06/04/22 05:36 Diagnostic Findings Cholangiopancreatography MRI 06/03/22 12:07 MRCP CLINICAL HISTORY: Pancreatic tail lesion. COMPARISON STUDY: Abdominal CT dated 06/01/2022. TECHNIQUE: Abdominal MRCP is performed utilizing T2 weighted sequences in the axial and coronal planes. IV contrast was not administered for this examination. 3-D reformats are created and assessed. The examination is significantly degraded by a large volume of abdominal ascites. FINDINGS: The gallbladder is mildly distended. No gallstones are identified. Mild gallbladder wall thickening is nonspecific and likely due to hepatocellular disease and ascites. There is no intra or extrahepatic biliary ductal dilatation. The common bile duct measures up to 2 mm diameter. No intraluminal filling defects are seen to suggest choledocholithiasis. The pancreatic duct near the ampulla is normal in caliber. There are filling defects within the pancreatic duct, likely representing stones. The distal pancreatic duct appears dilated but is not well evaluated. There is a large volume of abdominopelvic ascites. The liver is cirrhotic in morphology and heterogeneous in signal intensity. The unenhanced spleen, adrenal glands, and kidneys are grossly normal. The abdominal aorta is normal in caliber. The pancreas is heterogeneous. There is no evidence of bowel obstruction. Edema is suggested throughout the small bowel loops and colon. There are moderate pleural effusions with dependent atelectasis. IMPRESSION: 1. There is no intra or extrahepatic biliary ductal dilatation. 2. There are no gallstones identified. 3. The gallbladder is distended and appears mildly thick-walled, likely secondary to cirrhosis and ascites. 4. Filling defects within the pancreatic duct likely represent stones. This was better assessed on the recent abdominal CT scan. There is dilatation of the distal pancreatic duct, likely related to the more proximal ductal stones. This is not well evaluated on this examination. 5. There is diffuse edema of the small bowel and colon. Clinical correlation will be essential. 6. Moderate pleural effusions with dependent atelectasis. 7. Cirrhotic liver morphology. 8. Additional findings as above. Dictated: 06/03/2022 5:36 PM Transcribed: 06/03/2022 5:57 PM Yasmin [id number] [email or web address] Electronically signed by: Hawk Murray M.D. 06/03/2022 6:00 PM Paracentesis Ultrasound 06/04/22 09:38 PARACENTESIS UNDER ULTRASOUND GUIDANCE CLINICAL HISTORY: Ascites. COMPARISON STUDY: Abdominal CT dated 06/01/2022. PROCEDURE: The risks, benefits, and alternatives to the procedure were discussed with the patient who voiced understanding. Written informed consent was obtained. Following real-time ultrasound localization of a suitable pocket of fluid in the left lower quadrant, the abdomen was prepped and draped in the usual sterile fashion. The skin and soft tissues were anesthetized with 1% lidocaine. The sheathed paracentesis needle was inserted and approximately 1 liter of straw-colored ascitic fluid was removed by vacuum suction consent for laboratory analysis. The procedure was well tolerated and without immediate complication. The patient left the department in satisfactory condition. IMPRESSION: Successful ultrasound-guided paracentesis with removal of approximately 1 liter of ascitic fluid. ACT 112: Negative or not required by law. Electronically signed by: Hawk Murray M.D. 06/04/2022 12:09 PM PG Care Time/CCT Total # of Minutes Spent Total Time Spent with Patient: Total time spent is greater than 50% in coordination of care (as documented) at patient's floor/unit and/or counseling patient: Coding Level of Care Code 86911 Subseq Hosp Care Lvl 3 Diagnoses SIRS (systemic inflammatory response syndrome) R65.10 Hypoglycemia E16.2 Protein calorie malnutrition E46 Ascites R18.8 Insulin dependent diabetes mellitus E11.9; Z79.4 Anemia D64.9 Hypothyroidism E03.9 Alcoholism F10.20
[2022-06-04 14:45] LABS: Albumin Peritoneal Fluid < 1.5 gm/dl; Amylase Peritoneal Fluid < 10 U/L; Glucose Peritoneal Fluid 138 mg/dl; LDH Peritoneal Fluid 84 U/L; Lipase Peritoneal Fluid 4 U/L; Total Protein Peritoneal Fluid < 3.0 gm/dl
[2022-06-04 15:00] LABS: Appearance Peritoneal Fluid Hazy; Color Peritoneal Fluid Pale Yellow; Lymphocytes, Fluid 19 %; Mono,Macrophage,Mesothelial 3 %; Neutrophils, Fluid 78 %; RBC Peritoneal Fluid (A) < 2000 /uL; WBC Peritoneal Fluid (A) 606 /ul (0-300)
--- NOTE | 2022-06-04 15:53 | Palliative Care Consultation ---
Date of Consultation June 04, 2022 Assessment & Plan (1) Protein calorie malnutrition: Decreased po intake with possible underlying malignancy. Workup in progress. He is eating at least part of his meals and is being followed by nutrition. (2) Palliative care encounter: I talked with Jabari about his understanding of his health at this time. He tells me that "the doctors told me that I'm going to ". I asked him how he felt about that and he shrugged his shoulders and said "There's not much I can do about it." We talked about what he would want his days to look like if time were short and he told me that he wanted to be at home. We discussed concern that he is not able to live independently and would need support. He has many friends and has brothers but unfortunately does not seem to have the support he needs at home. He told me that he was looking at getting "those hospice people" to come and help him. I asked him about his understanding of hospice and he said he didn't really know what it was. We reviewed hospice care and philosophy. He could have support to help with symptom management and monitoring but it would not provide the 24/7 support which he needs. I asked him how he felt about the idea of shifting focus of care to symptom management and comfort rather than disease management. He told me that his wish would be to be at home until his dying time. He did not feel that he would want further testing or treatment for his illness. Discussed with hospitalist and case management. History of Present Illness Reason for Consultation: goals of care Requesting Physician: JHONY Hanna Attending Physician: Joi Ramos MD History of Present Illness 61 yo gentleman who lives alone in an apartment in [facility]. He was admitted after neighbor's called 911 for a wellness check. He has severe protein calorie malnutrition with severe hypoalbuminemia. He was noted to have ascites and had paracentesis today for 1L of fluid. He was hypoglycemic on admission. Imaging has not revealed any obvious malignancy though his CEA is elevated at 21.6. Analysis of ascitic fluid is pending. He is awake and alert. He denies pain, dyspnea, nausea or vomiting. He confirms that he has had poor appetite at home. He notes that he has had difficulty with ADLs at home. Allergies Allergy/AdvReac Type Severity Reaction Status Date / Time No Known Allergies Allergy Unknown Verified 03/26/22 15:02 Home Medications Medication Instructions Recorded Confirmed Type acetaminophen 500 mg tablet 1,000 mg PO TID PRN 09/19/21 06/01/22 History insulin aspart U-100 100 unit/mL 0 unit SQ TID 09/19/21 06/01/22 History (3 mL) subcutaneous pen (Novolog Flexpen U-100 Insulin aspart) insulin glargine 100 unit/mL (3 0 unit SUBCUT BID 09/19/21 06/01/22 History mL) subcutaneous pen (Lantus Solostar U-100 Insulin) blood sugar diagnostic #100 ea 02/04/22 06/01/22 Rx gabapentin 300 mg capsule 300 mg PO BID #60 cap 03/06/22 06/01/22 Rx levothyroxine 50 mcg tablet 50 mcg PO DAILY #30 tab 03/06/22 06/01/22 Rx aspirin 81 mg tablet,delayed 81 mg PO DAILY #30 tab 03/19/22 06/01/22 Rx release (Adult Aspirin Regimen) cholecalciferol (vitamin D3) 125 250 mcg PO DAILY #30 cap 03/26/22 06/01/22 Rx mcg (5,000 unit) capsule Wheelchair (Manual) #1 ea 03/27/22 06/01/22 Rx blood sugar diagnostic (OneTouch #100 ea 05/13/22 06/01/22 Rx Ultra Test) hydrocodone 5 mg-acetaminophen 325 0.5 - 1 tab PO Q12H PRN #30 tab 05/13/22 06/01/22 Rx mg tablet Patient History Medical History Chronic back pain Depression Hyperglycemia Migraine Osteoarthritis Uncontrolled type 2 diabetes with neuropathy Uncontrolled type II diabetes mellitus Vitamin D deficiency Surgical History History of esophagogastroduodenoscopy (EGD) History of right inguinal hernia repair History of tooth extraction all teeth removed Family History Father Family history of diabetes mellitus Mother Cancer Breast cancer Other No family history of adverse response to anesthesia Denies family history of Ovarian cancer Prostate cancer Myocardial infarction Colorectal cancer Social History Smoking Status: Current some day smoker Tobacco Type: Cigarettes Age Started Using Tobacco: 12; Cigarettes Per Day: 20 a day; Second Hand Exposure: Yes (parents smoked); Do You Dip or Chew Tobacco: No; Hx Alcohol Use: No Hx Substance Use: Yes Non-Prescribed Medications: Marijuana Last Used Substance: Days (ago) Last Used Substance Other:: for pain Preferred Language: Welsh Communication Ability: Effective Application Support Analyst Required: No Beliefs That Will Affect Care: None marital status: Single Current Living Situation: Alone current occupational status: disabled How many Children do You have: 1 Feels Safe at Home: Yes Childhood Exposure to Second-Hand Smoke: No caffeine: Yes Dental Care, Regularly: No Physical Activity Frequency: Does not Exercise Seatbelt Use: sometimes Sunscreen Use: No Assistive Devices: Crutches and Wheelchair Review of Systems Review of Systems: ESAS Pain 0/3 Dyspnea 0/3 Fatigue 2/3 Nausea 0/3 Anorexia 2/3 Drowsiness 0/3 PPS 40% Physical Exam Constitutional: + ill appearing and + cachectic Respiratory: normal respiratory effort; no labored breathing Cardiovascular: Extremities: + edema Musculoskeletal: Extremities: + muscle atrophy Neurologic: Speech / Cognition: normal cognition Psychiatric: Orientation: oriented x 3 Genitourinary: Cat catheter Results & Data ([facility]) Vital Signs (Past 12 Hours) Vital Signs Temp Pulse Pulse Resp BP BP Pulse Ox 06/04/22 15:13 97.3 F L 98 H 17 88/59 L 92 06/04/22 14:18 91/62 L 06/04/22 08:18 97.3 F L 97 H 18 80/63 L 94 06/04/22 07:21 90 PG Care Time/CCT Total # of Minutes Spent Total Time Spent: 60 Total Time Spent with Patient: Total time spent is greater than 50% in coordination of care (as documented) at patient's floor/unit and/or counseling patient: goals of care, prognosis, patient education and support Coding Level of Care Code 35956 Initial Inpt Care Lvl 2 Diagnoses Protein calorie malnutrition E46 Palliative care encounter Z51.5
[2022-06-04] MEDS: MELATONIN 3 MG TAB PO SCH (20:16)
[2022-06-04] MEDS: GLUCOSE 10 TAB/TUBE PO PRN (20:32)
[2022-06-04] MEDS: DEXTROSE 50% 50 ML SYRINGE IV PRN (21:22)
[2022-06-05] MEDS ORDERED: PIPERACILLIN/TAZOBACTAM 3.375 GM in DEXTROSE 5% 100 ML IV STA (00:49)
[2022-06-05] MEDS: INSULIN ASPART PER UNIT SC SCH ×3 (01:01→11:57)
[2022-06-05] MEDS: THIAMINE HCL 500 MG in SODIUM CHLORIDE 0.9% 50 ML IV SCH ×3 (01:11→18:15)
[2022-06-05] MEDS: ALBUMIN 25% 100 mL 25 GM/100 ML VIAL IV SCH ×3 (02:41→17:52)
[2022-06-05] MEDS: LEVOTHYROXINE SODIUM 50 MCG TABLET PO SCH (05:51)
[2022-06-05] MEDS: PIPERACILLIN/TAZOBACTAM 3.375 GM in DEXTROSE 5% 100 ML IV SCH ×3 (05:52→22:17)
[2022-06-05 07:24] LABS: Albumin Level 2.4 gm/dl (3.4-5.0); BUN Creatinine Ratio 28.6 (10-20); Bilirubin Direct 0.2 mg/dl (0-0.2); Bilirubin,Total 0.4 mg/dl (0.2-1.0); Calcium 7.4 mg/dl (8.5-10.1); Creatinine Clr Calc Pharmacy 73.4 ml/min; Est GFR (African American) 120.1 ml/min; Est GFR (Non-African American) 103.6 ml/min; Magnesium 1.8 mg/dl (1.7-2.4); Potassium 3.7 mmol/L (3.5-5.1)
[2022-06-05 07:53] LABS: Hematocrit (blood only) 21.5 % (40.1-51.0); Hemoglobin 7.2 g/dl (14.0-18.0); Mean Corpuscular Hemoglobin 37.3 pg (25.0-34.0); Mean Corpuscular Hgb Conc 33.5 g/dL (32.0-36.0); Mean Corpuscular Volume 111.4 fL (80.0-100.0); Mean Platelet Volume 11.8 fL (9.4-12.4); Nucleated RBC # (auto) 0.02 K/uL (0-0); Nucleated RBC % (auto) 0.1 %; Platelet Count 159 K/uL (130-400); RDW Coefficient of Variation 17.3 % (11.5-14.5); RDW Standard Deviation 70.4 fL (36.4-46.3); Red Blood Count 1.93 M/uL (4.63-6.08); White Blood Count 15.66 K/ul (4.8-10.8)
[2022-06-05 08:00] LABS: Basophils # (auto) 0.01 K/uL (0-0.2); Basophils % (auto) 0.1 %; Eosinophils # (auto) 0.01 K/uL (0-0.50); Eosinophils % (auto) 0.1 %; Immature Granulocytes # (auto) 0.18 K/uL (0.00-0.02); Immature Granulocytes % (auto) 1.1 %; Lymphocytes # (auto) 2.03 K/uL (1.2-3.4); Macrocytosis Present; Monocytes # (auto) 0.69 K/uL (0.24-0.82); Monocytes % (auto) 4.4 %; Neutrophils # (auto) 12.74 K/uL (1.4-6.5); Neutrophils % (auto) 81.3 %
[2022-06-05 08:49] LABS: Basophils # (auto) 0.01 K/uL (0-0.2); Basophils % (auto) 0.1 %; Hematocrit (blood only) 21.7 % (40.1-51.0); Hemoglobin 7.3 g/dl (14.0-18.0); Immature Granulocytes # (auto) 0.15 K/uL (0.00-0.02); Lymphocytes # (auto) 1.89 K/uL (1.2-3.4); Lymphocytes % (auto) 12.2 %; Mean Corpuscular Hemoglobin 36.7 pg (25.0-34.0); Mean Corpuscular Hgb Conc 33.6 g/dL (32.0-36.0); Mean Platelet Volume 11.7 fL (9.4-12.4); Monocytes # (auto) 0.68 K/uL (0.24-0.82); Monocytes % (auto) 4.4 %; Neutrophils # (auto) 12.71 K/uL (1.4-6.5); Neutrophils % (auto) 82.3 %; Nucleated RBC # (auto) 0.02 K/uL (0-0); Nucleated RBC % (auto) 0.1 %; Platelet Count 159 K/uL (130-400); RDW Coefficient of Variation 17.4 % (11.5-14.5); RDW Standard Deviation 69.3 fL (36.4-46.3); Red Blood Count 1.99 M/uL (4.63-6.08); White Blood Count 15.44 K/ul (4.8-10.8)
[2022-06-05] MEDS: CHOLECALCIFEROL 5,000 UNITS 125 MCG TAB PO SCH (09:01)
[2022-06-05] MEDS: GABAPENTIN 300 MG CAP PO SCH ×2 (09:01→22:18)
[2022-06-05 09:17] LABS: Acanthocytes 1+; Macrocytosis Present; Polychromasia 1+; Target Cells 2+
[2022-06-05] MEDS ORDERED: ACETAMINOPHEN 325 MG TAB PO ONE (09:56)
[2022-06-05] MEDS ORDERED: SODIUM CHLORIDE 0.9% 250 ML IV PRN (09:56)
[2022-06-05] MEDS ORDERED: diphenhydrAMINE Capsule 25 MG CAP PO ONE (09:56)
[2022-06-05] MEDS ORDERED: OPTIRAY 320 125ml IV ONE (12:02)
--- NOTE | 2022-06-05 12:53 | CT Scan Report ---
CT angio abdomen pelvis w con CLINICAL HISTORY: acute blood loss COMPARISON STUDY: 06/01/2022 CT DOSE: 299.68 mGy.cm TECHNIQUE: Standard CT Angiogram of the aorta was performed with IV contrast followed by image post p rocessing with coronal, and sagittal MIP reformats... This CT exam was performed using one or more of the following dose reduction techniques: Automated ex posure control, adjustment of the mA and/or kV according to patient size, or use of iterative reconst ruction technique. CONTRAST: Optiray 320, 120 mL nonionic intravenous contrast. VASCULAR FINDINGS: There is no evidence for extravasation of contrast with no CTA evidence for active bleeding Abdominal aorta: patent without aneurysm or dissection. Celiac trunk: patent without stenosis. Superior mesenteric artery: patent without stenosis. Right renal artery: patent without stenosis. Left renal artery: patent without stenosis. Inferior mesenteric artery: patent without stenosis. Right common iliac artery: patent without stenosis. Right internal iliac artery: patent without stenosis. Right external iliac artery: patent without stenosis. Left common iliac artery: patent without stenosis. Left internal iliac artery: patent without stenosis. Left external iliac artery: patent without stenosis NONVASCULAR FINDINGS: Lung base: Compared to the previous examination, there are now large bilateral pleural effusions with compressive atelectasis/collapse of both lower lobes. Patchy groundglass alveolar opacities are seen in the aerated lung anteriorly. The presence of a viral type pneumonitis cannot be excluded. Abdominal cavity: There is again marked abdominal and pelvic ascites. Liver: There is homogeneous attenuation of the liver parenchyma. There is no evidence for enhancing m ass lesion. Spleen: There is homogeneous attenuation of the splenic parenchyma. There is no enhancing mass lesion . Pancreas: There is homogeneous attenuation of the pancreatic parenchyma. There is no evidence for mas s lesion or peripancreatic fluid collection. Parenchymal calcifications are again seen. Gall Bladder: The gallbladder is contracted. Adrenal glands: The adrenal glands are normal in size and attenuation. There is no evidence for enhan cing mass lesion. Kidneys: There is homogeneous attenuation of the renal parenchyma bilaterally. There is no evidence f or renal calculus or hydronephrosis. There is no evidence for enhancing mass. Bowel: There has been resolution of mucosal thickening of the bowel. The bowel loops are normally joe david within the abdomen and pelvis without evidence for dilatation or obstruction. There has been inte rval development of mild to moderate fecal stasis. There is no evidence for impaction or obstruction. There are no inflammatory changes present. There is no evidence for free air. Bladder: Cat catheter is present within the bladder. : There is no evidence for pelvic mass or adenopathy. There is no evidence for pelvic ascites. Osseous structures: There is no acute osseous pathology. IMPRESSION: 1. Negative CT angiogram. There is no evidence for extravasation of contrast or active GI bleeding by CTA. 2. There are now large bilateral pleural effusions with compressive atelectasis/collapse involving tracey th lower lobes. 3. Interval development of patchy alveolar opacities within the image aerated lungs suspicious for vi ral type pneumonitis. 4. Marked abdominal and pelvis ascites is again seen. 5. Interval development of mild to moderate fecal stasis without impaction or obstruction. 6. Resolution of diffuse mucosal thickening of the large and small bowel. ACT 112: Negative or not required by law. Electronically signed by: Brandon Guthrie M.D. 06/05/2022 12:51 PM
--- NOTE | 2022-06-05 13:46 | Hospitalist Progress Note ---
Date of Service June 05, 2022 Assessment & Plan (1) Sepsis: Plan: - Met sepsis criteria manifested by leukocytosis, tachycardia and hypotension with elevated lactate - Source confirmed follow ultrasound-guided paracentesis on 06/04 to be SBP - Antibiotics changed from Rocephin/Zithromax to Zosyn on 06/04 (? Rocephin has increasing resistance to SBP) - At this time, his sepsis has resolved, his lactate has normalized, only has residual leukocytosis - Will continue to trend wbc count - Blood cultures showing NGTD - Repeat procalcitonin in AM (2) Spontaneous bacterial peritonitis: Plan: - Empirically changed to Zithromax/Rocephin on 06/02 to cover for SBP with acites noted on CT a/p - S/P US-guided paracentesis, 1L fluid sent for analysis - Peritoneal aufmx=235, c/w SBP, antibiotics changed from Rocephin to Zosyn - Culture and cytology pending (3) Acute respiratory failure with hypoxia: Plan: - Now with large b/l pleural effusions - BP will not tolerate Lasix - Due to profound hypoalbuminemia pt is third spacing - Supplemental oxygen provided (4) Anemia: Plan: - Has been stable throughout hospitalization but now with acute drop to 7.2 on 06/05 - Checked Vitamin B12 and folate not deficient, Iron 21 - No gross evidence of blood loss on exam, no hematuria, heme negative stool - Discussed if he would want blood products if he should need them, he consented to transfusion - CTA a/p is without obvious source of bleeding - T&C for 2 units of PRBCs, will give 20mg IV Lasix in between IF BP will allow - Transfusion may very well make pleural effusions and hypoxia worse (5) Protein calorie malnutrition: Plan: - Patient states he only eats 1 or 2 times a day, for the past 2 weeks [facility] he had not been eating very much at all, however his weight loss has apparently been going ongoing for several months. Patient states he was diagnosed with pancreatic cancer in 2010 along with his diabetes, however there are no oncology notes or no note of this or any cancer for that matter in his PCP notes. It seems that his PCP was recommending chest CT, CT A/P, and UA to rule out malignancies. - CXR, CT A/P on admit without any evidence for mass or any kind of infectious inflammatory process. - Consulted RD for nutritional supplementations - Given a dose of IV Albumin and started on IV Thiamine as well as a dose of IV Calcium - Albumin has been undetectable on labs the last two days - Suspicious of malignancy, MRCP obtained d/t ?findings of IPMN on RUQ ultrasound. MRCP results as above, ascites and cirrhotic liver noted. - CEA and CA 19-9 obtained. CEA elevated, CA 19-9 pending. Per primary care records, was set up for o/p screening colo 2 years ago but didn't go as he didn't have transportation. ? metastatic colon ca but no obvious masses noted via imaging and no suspicious lesions noted on imaging of liver - He is now receiving IV Albumin with his level up to 2.4 on chemistry panel 06/05 (6) Urinary retention: Plan: - Requiring bill to be placed by urology on 06/04 (7) Hypoglycemia: Plan: - Presenting sugar 56 on BMP, 58 POC glucose. Patient has not been eating much over the past 2 weeks, yet intermittently taking his insulin. - D5 1/2 NSS @ 125 cc/hr ordered on admit - Held home insulin, started on SSI, regular diet, no carb ratio. -with hypoglycemia in to the 30s on evening of 06/04 - Lesion in the pancreatic tail noted on ultrasound 06/02, MRCP performed, evidence of chronic pancreatitis with stones in pancreatic duct. Spoke w/ GI, no indication for ERCP at this time. - Cirrhotic liver and ascites noted on MRCP also likely contributing (8) Ascites: Plan: - Repeat CTA a/p 06/05, read as large ascites - MRCP confirmed cirrhotic liver - Additional doses of IV Albumin ordered (9) Insulin dependent diabetes mellitus: Plan: - Presented with blood sugar of 56, started on D5 and half-normal saline 125 cc/hour. Sugar improving, patient hungry and being fed. - Hold him insulin (Lantus 2 units twice daily with NovoLog 3 units at mealtimes) cover with SSI without carb ratio. - A1c ordered and pending as they are not drawn over the weekends - Continue gabapentin for neuropathy. - Pollock diet given hypoglycemia & severe malnutrition. (10) Hypothyroidism: Plan: - Continue levothyroxine. - TSH 5.4, free T4 1.16. - Would hold off on any adjustments in Synthroid at present (11) Alcoholism: Plan: - History of, last drink in 2019. - Evidence of cirrhosis noted on MRCP with acites Plan Given patient's progressive decline, had a lengthy discussion with him at bedside that given his undetectable albumin level, now with evidence of third spacing and accumulation of acites, pleural effusions, and persistent hypotension, his overall prognosis is poor. I told him that at this time, his options for treatment are limited and that it is very likely his condition will only decline further until he would have multisystem organ failure. Noah seemed to understand that he is dying and had a degree of acceptance. He has two brothers, one (Henri) is his oldest brother and he would like to be primarily making decisions about his care if he should become incapacitated and not able to do so for himself. He does have a son and daughter but seems that he is estranged. We discussed code status and he understands his poor prognosis and likely what would be a poor outcome if we were to attempt a full resuscitation and he has voiced his wish to be DNR/DNI. Therefore, this change has been reflected in his chart. Palliative care provider, Dr. Liang, is on consult, greatly appreciate assistance. I do believe that the patient should consider transition to comfort measures give his ongoing decline despite aggressive treatment. Repeat labs tomorrow morning have been ordered. Case and plan has been extensively d/w Dr. Ramos. Further adjustments in plan will be made as warranted. Admission and Anticipated Discharge Date Admission Date: June 01, 2022 Supervising Physician Co-Signing Physician Notes SUSAN Supervision Note: I personally saw and examined the patient. I verified all ortiz points and agree with SUSAN Estrada with the following exceptions and/or additions: Pt seen at bedside when had acute hypoxia today. He appeared very ill, moore in color Vitals stable other than hypoxia. On NRB mask on top of Vapotherm at [facility] He was conversive though and able to sit up in bed for examination A/P-51 yo male here with severe protein calorie malnutrition, possible metastatic disease of unknown origin,and cirrhosis with massive ascites, anasarca Now with acute respiratory failure with hypoxia secondary to pleural effusions Also with worsening anemia today of unknwon cause, no bleeding obvious and CTA a/p negative lasix now for hypoxia and continue IV albumin Appreciate Palliative discussion. He is approaching his dying time unfortunately. He is critically ill and prognosis extremely poor. Will continue to discuss transition to [employer] Subjective Patient was seen on daily rounds this morning. He is currently lying in bed, verbalizes no new issues. He was able to eat a little bit this morning per RN. He did have a reported hypoglycemic event yesterday afternoon where he dropped into the 30s and required D50. He was able to get a little more sleep last night with increased dose of Melatonin. Denies dyspnea, chest pain, n/v/d, abd pain, f/c, headache, or gu symptoms. Review of Systems Review of Systems: All systems reviewed and are unremarkable except as noted in HPI and below. Denies fever, chills, fatigue, headache, nasal congestion, sore throat, chest pain, shortness of breath, palpitations, orthopnea, PND, abdominal pain, n/v/d, constipation, dysuria, hematuria, frequency, back pain, joint pain or swelling, easy bruising or bleeding, skin lesions or rashes. Physical Exam Physical Exam: GENERAL: 51 yo chronically ill appearing markedly underweight WM who appears older than stated age. NAD. LUNGS: Diminished in bases bilaterally, no wheezes or rhonchi appreciated CARDIOVASCULAR: Regular rate and rhythm. ABDOMEN: Soft, nontender, nondistended. BS normal x 4 quad. Rectal exam revealed heme negative yellow stool. : bill catheter in place, some dried blood around the uretheral meatus EXTREMITIES: Trace edema in upper extremities. Non-tender. Peripheral pulses +2/4. NEUROLOGIC: A&O x3. Nonfocal PSYCHIATRIC: Cooperative. Appropriate mood and affect. SKIN: Warm, dry, intact. Abrasions and bruises noted on b/l upper extremities. Results & Data Results & Data ([facility] [place]) Vital Signs (Past 12 Hours) Vital Signs Temp Pulse Pulse Pulse Resp BP BP 06/05/22 13:16 36.5 C 86 18 90/60 L 06/05/22 08:19 06/05/22 12:12 06/05/22 12:01 36.7 C 83 18 86/54 L 06/05/22 11:08 36.6 C 83 83 14 90/58 L 06/05/22 08:56 36.5 C 83 12 79/48 L 06/05/22 08:20 76 06/05/22 07:38 36.5 C 84 20 06/05/22 02:40 36.3 C L 81 19 06/05/22 01:21 BP Pulse Ox O2 Del Method O2 Flow Rate 06/05/22 13:16 92 06/05/22 08:19 Room Air 06/05/22 12:12 84 L Room Air, Nasal Cannula 0 06/05/22 12:01 91 Room Air, Nasal Cannula 2 06/05/22 11:08 89 L Room Air 06/05/22 08:56 92 Room Air 06/05/22 08:20 06/05/22 07:38 87/55 L 90 Room Air 06/05/22 02:40 78/63 L 93 Room Air 06/05/22 01:21 Room Air Laboratory Results 06/05/22 08:40 06/05/22 06:31 Diagnostic Findings Abdomen/Pelvis CTA 06/05/22 09:56 CT angio abdomen pelvis w con CLINICAL HISTORY: acute blood loss COMPARISON STUDY: 06/01/2022 CT DOSE: 299.68 mGy.cm TECHNIQUE: Standard CT Angiogram of the aorta was performed with IV contrast followed by image post processing with coronal, and sagittal MIP reformats... This CT exam was performed using one or more of the following dose reduction techniques: Automated exposure control, adjustment of the mA and/or kV according to patient size, or use of iterative reconstruction technique. CONTRAST: Optiray 320, 120 mL nonionic intravenous contrast. VASCULAR FINDINGS: There is no evidence for extravasation of contrast with no CTA evidence for active bleeding Abdominal aorta: patent without aneurysm or dissection. Celiac trunk: patent without stenosis. Superior mesenteric artery: patent without stenosis. Right renal artery: patent without stenosis. Left renal artery: patent without stenosis. Inferior mesenteric artery: patent without stenosis. Right common iliac artery: patent without stenosis. Right internal iliac artery: patent without stenosis. Right external iliac artery: patent without stenosis. Left common iliac artery: patent without stenosis. Left internal iliac artery: patent without stenosis. Left external iliac artery: patent without stenosis NONVASCULAR FINDINGS: Lung base: Compared to the previous examination, there are now large bilateral pleural effusions with compressive atelectasis/collapse of both lower lobes. Patchy groundglass alveolar opacities are seen in the aerated lung anteriorly. The presence of a viral type pneumonitis cannot be excluded. Abdominal cavity: There is again marked abdominal and pelvic ascites. Liver: There is homogeneous attenuation of the liver parenchyma. There is no evidence for enhancing mass lesion. Spleen: There is homogeneous attenuation of the splenic parenchyma. There is no enhancing mass lesion. Pancreas: There is homogeneous attenuation of the pancreatic parenchyma. There is no evidence for mass lesion or peripancreatic fluid collection. Parenchymal calcifications are again seen. Gall Bladder: The gallbladder is contracted. Adrenal glands: The adrenal glands are normal in size and attenuation. There is no evidence for enhancing mass lesion. Kidneys: There is homogeneous attenuation of the renal parenchyma bilaterally. There is no evidence for renal calculus or hydronephrosis. There is no evidence for enhancing mass. Bowel: There has been resolution of mucosal thickening of the bowel. The bowel loops are normally placed within the abdomen and pelvis without evidence for dilatation or obstruction. There has been interval development of mild to moderate fecal stasis. There is no evidence for impaction or obstruction. There are no inflammatory changes present. There is no evidence for free air. Bladder: Bill catheter is present within the bladder. : There is no evidence for pelvic mass or adenopathy. There is no evidence for pelvic ascites. Osseous structures: There is no acute osseous pathology. IMPRESSION: 1. Negative CT angiogram. There is no evidence for extravasation of contrast or active GI bleeding by CTA. 2. There are now large bilateral pleural effusions with compressive atelectasis/collapse involving both lower lobes. 3. Interval development of patchy alveolar opacities within the image aerated lungs suspicious for viral type pneumonitis. 4. Marked abdominal and pelvis ascites is again seen. 5. Interval development of mild to moderate fecal stasis without impaction or obstruction. 6. Resolution of diffuse mucosal thickening of the large and small bowel. ACT 112: Negative or not required by law. Electronically signed by: Brandon Guthrie M.D. 06/05/2022 12:51 PM PG Care Time/CCT Total # of Minutes Spent Total Time Spent with Patient: Total time spent is greater than 50% in coordination of care (as documented) at patient's floor/unit and/or counseling patient: Coding Level of Care Code 31287 Subseq Hosp Care Lvl 3 Diagnoses Sepsis A41.9 Spontaneous bacterial peritonitis K65.2 Acute respiratory failure with hypoxia J96.01 Anemia D64.9 Protein calorie malnutrition E46 Urinary retention R33.9 Hypoglycemia E16.2 Ascites R18.8 Insulin dependent diabetes mellitus E11.9; Z79.4 Hypothyroidism E03.9 Alcoholism F10.20
--- NOTE | 2022-06-05 14:07 | Palliative Care Progress Note ---
Date of Service June 05, 2022 Assessment & Plan (1) Cachexia: Plan: With profound hypoalbuminemia. Difficult balance with edema, pleural effusions and ascites, now needing transfusion. He tells me that he is eating, though he had not been eating at home. He is followed by nutrition. Clinical picture very concerning for occult malignancy. (2) Weakness: Plan: Not able to live independently. (3) Palliative care encounter: Plan: I talked with Jabari about his current problems which are involving multiple organ systems. We also discussed concern of underlying cancer. He acknowledges that with his lifestyle habits, that could certainly be a possibility. Yesterday, he had indicated that he did not really want to pursue aggressive treatment and would favor a more comfort focused approach to his care. We reviewed that discussion and I asked him how he felt about that in view of new development with anemia and occult bleeding. He tells me today that he does not want to "give up". "I've watched people and I know that everybody has to but I'm not ready yet." We discussed concerns that his body may not be able to overcome the challenges that he has now. He told me "I would want you to do what you can to help me get better." He is DNR/DNI but wants to continue current level of care. He did also confirm that if he were unable to make decisions for himself, his brother. Henri, would be his surrogate decision maker. I asked him if he thought that Henri would know what to do if he had to make decisions and he told me he wasn't sure but he thought so. I tried to call Henri to discuss this. No answer. Discussed with hospitalist and case management. Admission and Anticipated Discharge Date Admission Date: June 01, 2022 Subjective Resting. Had some back pain earlier that resolved with tylenol. Hemoglobin dropped 3.5 g since yesterday. Heme negative, CT negative for bleeding but shows but b/l pleural effusions. He is currently being transfused. Review of Systems Review of Systems: ESAS Pain 0/3 Dyspnea 0/3 Anxiety 1/3 Nausea 0/3 Fatigue 2/3 PPS 40% Physical Exam Constitutional: + cachectic; no acute distress Respiratory: normal respiratory effort; no labored breathing Cardiovascular: Extremities: + edema Musculoskeletal: Extremities: + muscle atrophy Neurologic: Speech / Cognition: normal cognition Psychiatric: Orientation: oriented x 3 Results & Data ([facility]) Vital Signs (Past 12 Hours) Vital Signs Temp Pulse Pulse Pulse Resp BP BP 06/05/22 13:51 97.9 F 83 16 96/65 L 06/05/22 13:35 97.7 F 82 16 78/57 L 06/05/22 13:16 97.7 F 86 18 90/60 L 06/05/22 08:19 06/05/22 12:12 06/05/22 12:01 98.1 F 83 18 86/54 L 06/05/22 11:08 97.9 F 83 83 14 90/58 L 06/05/22 08:56 97.7 F 83 12 79/48 L 06/05/22 08:20 76 06/05/22 07:38 97.7 F 84 20 06/05/22 02:40 97.3 F L 81 19 BP Pulse Ox O2 Del Method O2 Flow Rate 06/05/22 13:51 91 06/05/22 13:35 95 2 06/05/22 13:16 92 06/05/22 08:19 Room Air 06/05/22 12:12 84 L Room Air, Nasal Cannula 0 06/05/22 12:01 91 Room Air, Nasal Cannula 2 06/05/22 11:08 89 L Room Air 06/05/22 08:56 92 Room Air 06/05/22 08:20 06/05/22 07:38 87/55 L 90 Room Air 06/05/22 02:40 78/63 L 93 Room Air PG Care Time/CCT Total # of Minutes Spent Total Time Spent: 40 Total Time Spent with Patient: Total time spent is greater than 50% in coordination of care (as documented) at patient's floor/unit and/or counseling patient: goals of care, prognosis, patient education and support, coordination of care Coding Level of Care Code 71603 Subseq Hosp Care Lvl 3 Diagnoses Cachexia R64 Weakness R53.1 Palliative care encounter Z51.5
[2022-06-05] MEDS ORDERED: FUROSEMIDE INJ 20 MG/2 ML VIAL IV ONE (16:57)
[2022-06-05 17:03] LABS: Hematocrit (blood only) 31.7 % (40.1-51.0); Hemoglobin 10.8 g/dl (14.0-18.0)
[2022-06-05] MEDS: MELATONIN 3 MG TAB PO SCH (22:18)
[2022-06-06] MEDS: THIAMINE HCL 500 MG in SODIUM CHLORIDE 0.9% 50 ML IV SCH (02:30)
[2022-06-06] MEDS: PIPERACILLIN/TAZOBACTAM 3.375 GM in DEXTROSE 5% 100 ML IV SCH ×3 (06:19→22:21)
[2022-06-06] MEDS: LEVOTHYROXINE SODIUM 50 MCG TABLET PO SCH (06:19)
[2022-06-06 07:02] LABS: Basophils # (auto) 0.03 K/uL (0-0.2); Basophils % (auto) 0.2 %; Eosinophils # (auto) 0.02 K/uL (0-0.50); Eosinophils % (auto) 0.1 %; Hematocrit (blood only) 30.4 % (40.1-51.0); Hemoglobin 10.6 g/dl (14.0-18.0); Immature Granulocytes # (auto) 0.22 K/uL (0.00-0.02); Immature Granulocytes % (auto) 1.2 %; Lymphocytes # (auto) 1.84 K/uL (1.2-3.4); Lymphocytes % (auto) 10.3 %; Mean Corpuscular Hemoglobin 35.7 pg (25.0-34.0); Mean Corpuscular Hgb Conc 34.9 g/dL (32.0-36.0); Mean Corpuscular Volume 102.4 fL (80.0-100.0); Monocytes % (auto) 3.9 %; Neutrophils % (auto) 84.3 %; Nucleated RBC # (auto) 0.02 K/uL (0-0); Nucleated RBC % (auto) 0.1 %; Platelet Count 147 K/uL (130-400); RDW Coefficient of Variation 20.8 % (11.5-14.5); Red Blood Count 2.97 M/uL (4.63-6.08); White Blood Count 17.81 K/ul (4.8-10.8)
[2022-06-06 07:40] LABS: Target Cells 1+; Tear Drop Cells 1+
[2022-06-06 07:44] LABS: Albumin Globulin Ratio 1.4 (0.9-2); Albumin Level 2.4 gm/dl (3.4-5.0); BUN Creatinine Ratio 21.1 (10-20); Bilirubin,Total 1.2 mg/dl (0.2-1.0); Calcium 7.4 mg/dl (8.5-10.1); Creatinine Clr Calc Pharmacy 72.8 ml/min; Est GFR (African American) 120.7 ml/min; Est GFR (Non-African American) 104.2 ml/min; Globulin 1.7 gm/dl (2.5-4.0); Magnesium 1.7 mg/dl (1.7-2.4); Potassium 3.2 mmol/L (3.5-5.1); Total Protein 4.1 gm/dl (6.0-8.3)
[2022-06-06] MEDS: GABAPENTIN 300 MG CAP PO SCH ×2 (08:21→20:39)
[2022-06-06] MEDS: CHOLECALCIFEROL 5,000 UNITS 125 MCG TAB PO SCH (08:21)
[2022-06-06] MEDS ORDERED: FUROSEMIDE INJ 20 MG/2 ML VIAL IV ONE ×2 (09:01→18:44)
[2022-06-06] MEDS ORDERED: POTASSIUM CHLORIDE CRTAB 20 MEQ TABCR PO STA ×2 (09:01→18:48)
[2022-06-06] MEDS ORDERED: ALBUMIN 25% 100 mL 25 GM/100 ML VIAL IV ONE ×2 (09:01→19:00)
[2022-06-06] MEDS ORDERED: MAGNESIUM SULFATE / D5W 1 GM/100 ML BAG IV ONE ×2 (09:01→19:00)
[2022-06-06] MEDS: THIAMINE HCL 200 MG in SODIUM CHLORIDE 0.9% 50 ML IV SCH (11:41)
--- NOTE | 2022-06-06 12:37 | Hospitalist Progress Note ---
Date of Service June 06, 2022 Assessment & Plan (1) Sepsis: Plan: - Met sepsis criteria manifested by leukocytosis, tachycardia and hypotension with elevated lactate - Source confirmed follow ultrasound-guided paracentesis on 06/04 to be SBP - Antibiotics changed from Rocephin/Zithromax initially to Zosyn on 06/04 which has broader coverage for SBP-plan for 10 days of antibiotic therapy -Continues with worsening leukocytosis, some of which may be from severe anemia. Remains afebrile, tachycardia and hypotension are improved with IV albumin -Peritoneal fluid culture pending - Blood cultures showing NGTD -Procalcitonin markedly elevated at 170 on admission and is now down to 7 -Continue to follow CBC, CMP (2) Cirrhosis: Plan: Noted on imaging, likely secondary to history of chronic alcohol use disorder Family history positive for mother who at age 55 from cirrhosis as well-she also had alcohol use disorder, however question if there is a hereditary component to these cirrhosis With massive ascites suggestive of portal hypertension, but could be secondary to unknown malignancy With severe hypoalbuminemia with albumin being undetectable upon admission, now improved with IV albumin Surprisingly, platelets are low end of normal and INR only mildly elevated at 1.2. Only total bilirubin mildly elevated No evidence of hepatic encephalopathy Meld score is only 9 Continue IV albumin and IV Lasix to diurese and improve hypoxia SUSAN Estrada did discuss the case with on-call GI Dr. Patricia Dimas on 06/04 regarding the abnormal MRCP but no ERCP was recommended for the pancreatic duct stones due to patient not having active pancreatitis (3) Spontaneous bacterial peritonitis: Plan: As above, treating with Zosyn as cefotaxime not available which would be first- line choice Culture pending Cytology negative for malignancy Ascites secondary to cirrhosis versus malignancy? (4) Acute respiratory failure with hypoxia: Plan: - Now with large b/l pleural effusions - Due to profound hypoalbuminemia pt is third spacing - Supplemental oxygen provided-now on Vapotherm at max settings -Goal of care as discussed with patient is to attempt diuresis with IV albumin and Lasix in order to wean oxygen requirement down so he can be discharged out of the hospital to a detention -Give Lasix 20 Mg IV twice daily along with IV albumin today -Replace potassium and magnesium -Incentive spirometry (5) Cachexia: Plan: Possibly secondary to unknown malignancy, CEA elevated, possible pancreatic cancer given pancreatic lesion Also could be due to cirrhosis (6) Anemia: Plan: - Has been stable throughout hospitalization but then with acute drop to 7.2 on 06/05 with no obvious bleeding - Checked Vitamin B12 and folate not deficient, Iron 21 - No gross evidence of blood loss on exam, no hematuria, heme negative stool -Transfused 1 unit PRBCs and then had significant hypoxia-second unit PRBCs not given - CTA a/p is without obvious source of bleeding -Hemoglobin today stable since transfusion at 10.6 which seems quite high after only 1 unit of PRBCs -Follow CBC in the morning (7) Protein calorie malnutrition: Plan: - Patient states he only eats 1 or 2 times a day, 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 Patient states he was diagnosed with pancreatic cancer in 2010 along with his diabetes, however there are no oncology notes or no note of this or any cancer for that matter in his PCP notes. It seems that his PCP was recommending chest CT, CT A/P, and UA to rule out malignancies. - CXR, CT A/P on admit without any evidence for mass or any kind of infectious inflammatory process. - Consulted RD for nutritional supplementations - started on IV Thiamine due to malnutrition and elevated lactate, liver disease - Albumin has been undetectable on labs but now improved with IV albumin - Suspicious of malignancy, MRCP obtained d/t ?findings of IPMN on RUQ ultrasound. MRCP results as above, ascites and cirrhotic liver noted. - CEA and CA 19-9 obtained. CEA elevated, CA 19-9 pending. Per primary care records, was set up for o/p screening colo 2 years ago but didn't go as he didn't have transportation. ? metastatic colon ca but no obvious masses noted via imaging and no suspicious lesions noted on imaging of liver - He is now receiving IV Albumin with his level up to 2.4 but of course this is only a temporizing measure (8) Hypoglycemia: Plan: - Presenting sugar 56 on BMP, 58 POC glucose. Patient has not been eating much over the past 2 weeks, yet intermittently taking his insulin. - D5 1/2 NSS @ 125 cc/hr ordered on admit which is now been discontinued - Held home insulin, started on SSI, regular diet, no carb ratio. -with hypoglycemia in to the 30s on evening of 06/04 - Lesion in the pancreatic tail noted on ultrasound 06/02, MRCP performed, evidence of chronic pancreatitis with stones in pancreatic duct. Spoke w/ GI, no indication for ERCP at this time. - Cirrhotic liver and ascites noted on MRCP also likely contributing (9) Ascites: Plan: - Repeat CTA a/p 06/05, read as large ascites - MRCP confirmed cirrhotic liver - Additional doses of IV Albumin ordered (10) Insulin dependent diabetes mellitus: Plan: - Presented with blood sugar of 56, started on D5 and half-normal saline 125 cc/hour. Sugar improving, patient hungry and being fed. - Hold home insulin (Lantus 2 units twice daily with NovoLog 3 units at mealtimes) cover with SSI without carb ratio. - A1c only 5.3% - Continue gabapentin for neuropathy. - [place] diet given hypoglycemia & severe malnutrition. (11) Hypothyroidism: Plan: - Continue levothyroxine. - TSH 5.4, free T4 1.16. - Would hold off on any adjustments in Synthroid at present as gut wall edema was likely preventing good absorption of medication (12) Alcoholism: Plan: - History of, last drink in 2018. - Evidence of cirrhosis noted on MRCP with ascites (13) Urinary retention: Plan: - Requiring bill to be placed by urology on 06/04 -Continue to maintain Bill catheter Blood pressure could not tolerate tamsulosin Plan Given patient's progressive decline, multiple lengthy discussions with him as well as his brother and [id number] at bedside that given his undetectable albumin level, now with evidence of third spacing and accumulation of ascites, pleural effusions, and persistent hypotension, severe hypoxia, his overall prognosis is poor. I told him that at this time, his options for treatment are limited and that it is very likely his condition will only decline further until he would have multisystem organ failure. Noah seemed to understand that he is dying and had a degree of acceptance. He has two brothers, one (Henri) is his oldest brother and he would like to be primarily making decisions about his care if he should become incapacitated and not able to do so for himself. He does have a son but seems that he is estranged. We discussed code status and he understands his poor prognosis and likely what would be a poor outcome if we were to attempt a full resuscitation and he has voiced his wish to be DNR/DNI. Therefore, this change has been reflected in his chart. On 06/06, Noah has goals of the following: Attempts at diuresis to improve hypoxia so that he can leave the hospital and go to a detention on hospice. If deteriorates further while in the hospital, okay to transition to comfort measures only with IV morphine and comfort medications. Palliative care provider, Dr. Liang, is on consult, greatly appreciate assistance. Admission and Anticipated Discharge Date Admission Date: June 01, 2022 Subjective Patient seen on 2 occasions today. The first occasion was in the morning for approximately 25 minutes. He denies significant shortness of breath but has minimal movement. Appetite is poor. He had a small bowel movement this morning and has been dealing with intermittent worsening hypoxia despite being on max settings of Vapotherm. He does have some pain in his back from lying in the bed. We had a long discussion about end-of-life and goals of care. He is agreeable to transitioning to comfort measures only if he were to further deteriorate from this point. He does want to continue with IV antibiotics, continue with attempts at diuresis along with IV albumin, and his goal is to get out of the hospital to a detention but would enroll in hospice at that point. If he worsens sooner than that, he is okay with getting morphine for comfort. I came back to the room in the evening around 1814 and spent another 30 minutes with the patient and his brother/surrogate decision-maker and his brothers at the bedside. I again ran through the patient's whole case in detail and his very poor prognosis and plans for hospice. Telemetry with normal sinus rhythm with rates in the 70s to 80s and a brief run of V. tach Review of Systems Review of Systems: All systems reviewed & are unremarkable except as noted in HPI & below Physical Exam Physical Exam: GENERAL: 51 yo chronically ill appearing markedly underweight WM who appears older than stated age. NAD. Vapotherm nasal cannula in place LUNGS: Diminished in bases bilaterally, no wheezes or rhonchi appreciated, unlabored breathing CARDIOVASCULAR: Regular rate and rhythm. No murmurs gallops or rubs ABDOMEN: Soft, nontender, positive mild distention, positive bowel sounds : bill catheter in place, draining clear yellow urine EXTREMITIES: Trace edema in upper extremities. NEUROLOGIC: A&O x3. Nonfocal PSYCHIATRIC: Cooperative. Appropriate mood and affect. SKIN: Warm, dry, intact. Abrasions and bruises noted on b/l upper extremities. Results & Data Results & Data ([facility]) Vital Signs (Past 12 Hours) Vital Signs Temp Pulse Pulse Pulse Resp BP Pulse Ox 06/06/22 08:00 06/06/22 08:00 82 06/06/22 11:26 36.3 C L 79 97/64 L 92 06/06/22 11:20 83 L 06/06/22 09:07 81 20 92 06/06/22 08:20 36.5 C 82 18 95/66 L 95 06/06/22 07:24 77 20 93 06/06/22 04:58 36.4 C L 78 18 100/69 95 06/06/22 03:45 79 18 95 O2 Del Method O2 Flow Rate FiO2 06/06/22 08:00 High Flow Nasal Cannula 40 100 06/06/22 08:00 06/06/22 11:26 High Flow Nasal Cannula 40 100 06/06/22 11:20 30 80 06/06/22 09:07 30 80 06/06/22 08:20 High Flow Nasal Cannula 40 100 06/06/22 07:24 High Flow Nasal Cannula 40 100 06/06/22 04:58 High Flow Nasal Cannula 40 06/06/22 03:45 High Flow Nasal Cannula 40 100 Laboratory Results 06/06/22 06/06/22 06/06/22 Range/Units 16:47 13:31 06:34 WBC (4.8-10.8) K/ul RBC (4.63-6.08) M/uL Hgb (14.0-18.0) g/dl Hct (40.1-51.0) % MCV (80.0-100.0) fL MCH (25.0-34.0) pg MCHC (32.0-36.0) g/dL RDW Std Deviation (36.4-46.3) fL RDW Coeff of Lay (11.5-14.5) % Plt Count (130-400) K/uL MPV (9.4-12.4) fL Immature Gran % (Auto) % Neut % (Auto) % Lymph % (Auto) % [place] % (Auto) % Eos % (Auto) % Baso % (Auto) % Neut # (Auto) (1.4-6.5) K/uL Lymph # (Auto) (1.2-3.4) K/uL [place] # (Auto) (0.24-0.82) K/uL Eos # (Auto) (0-0.50) K/uL Baso # (Auto) (0-0.2) K/uL Immature Gran # (Auto) (0.00-0.02) K/uL Absolute Nucleated RBC (0-0) K/uL Nucleated RBC % (auto) % Target Cells Tear Drop Cells Peripher Smr Path Cons Cancelled Sodium (136-145) mmol/L Potassium (3.5-5.1) mmol/L Chloride (98-107) mmol/L Carbon Dioxide (21-32) mmol/L Anion Gap (3-11) BUN (6-23) mg/dl Creatinine (0.6-1.4) mg/dl Est Cr Clr Drug Dosing ml/min Est GFR ( Amer) ml/min Est GFR (Non-Af Amer) ml/min BUN/Creatinine Ratio (10-20) Glucose (70-99(Fasting)) mg/dl POC Glucose 150 H 179 H (70-99) mg/dl Calcium (8.5-10.1) mg/dl Magnesium (1.7-2.4) mg/dl Total Bilirubin (0.2-1.0) mg/dl AST (13-39) U/L ALT (7-52) U/L Alkaline Phosphatase (34-104) U/L Total Protein (6.0-8.3) gm/dl Albumin (3.4-5.0) gm/dl Globulin (2.5-4.0) gm/dl Albumin/Globulin Ratio (0.9-2) Procalcitonin (0-0.5) ng/ml Crossmatch 06/06/22 06/06/22 06/06/22 Range/Units 06:34 06:34 06:34 WBC 17.81 H (4.8-10.8) K/ul RBC 2.97 L (4.63-6.08) M/uL Hgb 10.6 L (14.0-18.0) g/dl Hct 30.4 L (40.1-51.0) % MCV 102.4 H D (80.0-100.0) fL MCH 35.7 H (25.0-34.0) pg MCHC 34.9 (32.0-36.0) g/dL RDW Std Deviation 77.0 H (36.4-46.3) fL RDW Coeff of Lay 20.8 H (11.5-14.5) % Plt Count 147 (130-400) K/uL MPV 12.0 (9.4-12.4) fL Immature Gran % (Auto) 1.2 % Neut % (Auto) 84.3 % Lymph % (Auto) 10.3 % [place] % (Auto) 3.9 % Eos % (Auto) 0.1 % Baso % (Auto) 0.2 % Neut # (Auto) 15.00 H (1.4-6.5) K/uL Lymph # (Auto) 1.84 (1.2-3.4) K/uL [place] # (Auto) 0.70 (0.24-0.82) K/uL Eos # (Auto) 0.02 (0-0.50) K/uL Baso # (Auto) 0.03 (0-0.2) K/uL Immature Gran # (Auto) 0.22 H (0.00-0.02) K/uL Absolute Nucleated RBC 0.02 H (0-0) K/uL Nucleated RBC % (auto) 0.1 % Target Cells 1+ Tear Drop Cells 1+ Peripher Smr Path Cons Sodium 139 (136-145) mmol/L Potassium 3.2 L (3.5-5.1) mmol/L Chloride 109 H (98-107) mmol/L Carbon Dioxide 26 (21-32) mmol/L Anion Gap 4 (3-11) BUN 16 (6-23) mg/dl Creatinine 0.76 (0.6-1.4) mg/dl Est Cr Clr Drug Dosing 72.8 ml/min Est GFR ( Amer) 120.7 ml/min Est GFR (Non-Af Amer) 104.2 ml/min BUN/Creatinine Ratio 21.1 H (10-20) Glucose 148 H (70-99(Fasting)) mg/dl POC Glucose (70-99) mg/dl Calcium 7.4 L (8.5-10.1) mg/dl Magnesium 1.7 (1.7-2.4) mg/dl Total Bilirubin 1.2 H D (0.2-1.0) mg/dl AST 26 (13-39) U/L ALT 24 (7-52) U/L Alkaline Phosphatase 63 (34-104) U/L Total Protein 4.1 L (6.0-8.3) gm/dl Albumin 2.4 L (3.4-5.0) gm/dl Globulin 1.7 L (2.5-4.0) gm/dl Albumin/Globulin Ratio 1.4 (0.9-2) Procalcitonin 7.02 H (0-0.5) ng/ml Crossmatch 06/05/22 06/05/22 Range/Units 20:47 10:24 WBC (4.8-10.8) K/ul RBC (4.63-6.08) M/uL Hgb (14.0-18.0) g/dl Hct (40.1-51.0) % MCV (80.0-100.0) fL MCH (25.0-34.0) pg MCHC (32.0-36.0) g/dL RDW Std Deviation (36.4-46.3) fL RDW Coeff of Lay (11.5-14.5) % Plt Count (130-400) K/uL MPV (9.4-12.4) fL Immature Gran % (Auto) % Neut % (Auto) % Lymph % (Auto) % [place] % (Auto) % Eos % (Auto) % Baso % (Auto) % Neut # (Auto) (1.4-6.5) K/uL Lymph # (Auto) (1.2-3.4) K/uL [place] # (Auto) (0.24-0.82) K/uL Eos # (Auto) (0-0.50) K/uL Baso # (Auto) (0-0.2) K/uL Immature Gran # (Auto) (0.00-0.02) K/uL Absolute Nucleated RBC (0-0) K/uL Nucleated RBC % (auto) % Target Cells Tear Drop Cells Peripher Smr Path Cons Sodium (136-145) mmol/L Potassium (3.5-5.1) mmol/L Chloride (98-107) mmol/L Carbon Dioxide (21-32) mmol/L Anion Gap (3-11) BUN (6-23) mg/dl Creatinine (0.6-1.4) mg/dl Est Cr Clr Drug Dosing ml/min Est GFR ( Amer) ml/min Est GFR (Non-Af Amer) ml/min BUN/Creatinine Ratio (10-20) Glucose (70-99(Fasting)) mg/dl POC Glucose 180 H (70-99) mg/dl Calcium (8.5-10.1) mg/dl Magnesium (1.7-2.4) mg/dl Total Bilirubin (0.2-1.0) mg/dl AST (13-39) U/L ALT (7-52) U/L Alkaline Phosphatase (34-104) U/L Total Protein (6.0-8.3) gm/dl Albumin (3.4-5.0) gm/dl Globulin (2.5-4.0) gm/dl Albumin/Globulin Ratio (0.9-2) Procalcitonin (0-0.5) ng/ml Crossmatch See Detail PG Care Time/CCT Total # of Minutes Spent Total Time Spent with Patient: Total time spent is greater than 50% in coordination of care (as documented) at patient's floor/unit and/or counseling patient: Prolonged Care Time Prolonged Care Time: Yes Total Prolonged Care Time: 80 I spent 80 minutes in prolonged care time of this patient Coding Level of Care Code 88049 Subseq Hosp Care Lvl 3 (25 - SIGNIFICANT, SEPARATELY IDENTIFIABLE ) Diagnoses Sepsis A41.9 Cirrhosis K74.60 Spontaneous bacterial peritonitis K65.2 Acute respiratory failure with hypoxia J96.01 Cachexia R64 Anemia D64.9 Protein calorie malnutrition E46 Hypoglycemia E16.2 Ascites R18.8 Insulin dependent diabetes mellitus E11.9; Z79.4 Hypothyroidism E03.9 Alcoholism F10.20 Urinary retention R33.9 Additional Codes Prolonged Care Time - Prolonged Care Time: Yes ([id number])
[2022-06-06] MEDS: MELATONIN 3 MG TAB PO SCH (20:38)
[2022-06-06] MEDS: ACETAMINOPHEN 325 MG TAB PO PRN (20:38)
[2022-06-07] MEDS: PIPERACILLIN/TAZOBACTAM 3.375 GM in DEXTROSE 5% 100 ML IV SCH ×3 (05:57→21:40)
[2022-06-07] MEDS: LEVOTHYROXINE SODIUM 50 MCG TABLET PO SCH (05:58)
[2022-06-07] MEDS: GABAPENTIN 300 MG CAP PO SCH ×2 (07:36→20:08)
[2022-06-07] MEDS: THIAMINE HCL 200 MG in SODIUM CHLORIDE 0.9% 50 ML IV SCH (07:39)
[2022-06-07 08:05] LABS: INR 1.6 (0.9-1.1); Prothrombin Time 16.7 Seconds (9.0-12.0)
[2022-06-07] MEDS: ACETAMINOPHEN 325 MG TAB PO PRN ×2 (08:11→20:11)
[2022-06-07 08:23] LABS: BUN Creatinine Ratio 18.8 (10-20); Calcium 7.5 mg/dl (8.5-10.1); Creatinine Clr Calc Pharmacy 75.3 ml/min; Est GFR (African American) 125.6 ml/min; Est GFR (Non-African American) 108.4 ml/min; Potassium 3.2 mmol/L (3.5-5.1)
[2022-06-07 08:26] LABS: Albumin Globulin Ratio 1.8 (0.9-2); Albumin Level 2.7 gm/dl (3.4-5.0); Bilirubin,Total 1.5 mg/dl (0.2-1.0); Globulin 1.5 gm/dl (2.5-4.0); Magnesium 1.9 mg/dl (1.7-2.4); Phosphorus 1.5 mg/dl (2.5-4.9); Total Protein 4.2 gm/dl (6.0-8.3)
[2022-06-07 08:40] LABS: Hematocrit (blood only) 30.3 % (40.1-51.0); Hemoglobin 10.7 g/dl (14.0-18.0); Mean Corpuscular Hemoglobin 35.5 pg (25.0-34.0); Mean Corpuscular Hgb Conc 35.3 g/dL (32.0-36.0); Mean Corpuscular Volume 100.7 fL (80.0-100.0); Nucleated RBC # (auto) 0.02 K/uL (0-0); Nucleated RBC % (auto) 0.1 %; Platelet Count 140 K/uL (130-400); RDW Coefficient of Variation 20.4 % (11.5-14.5); RDW Standard Deviation 75.3 fL (36.4-46.3); Red Blood Count 3.01 M/uL (4.63-6.08); White Blood Count 17.22 K/ul (4.8-10.8)
[2022-06-07 08:41] LABS: Anisocytosis Present; Basophils # (auto) 0.04 K/uL (0-0.2); Basophils % (auto) 0.2 %; Eosinophils # (auto) 0.04 K/uL (0-0.50); Eosinophils % (auto) 0.2 %; Immature Granulocytes # (auto) 0.17 K/uL (0.00-0.02); Lymphocytes # (auto) 2.05 K/uL (1.2-3.4); Lymphocytes % (auto) 11.9 %; Monocytes # (auto) 0.75 K/uL (0.24-0.82); Monocytes % (auto) 4.4 %; Neutrophils # (auto) 14.17 K/uL (1.4-6.5); Neutrophils % (auto) 82.3 %; Polychromasia 2+; Target Cells 2+
[2022-06-07] MEDS ORDERED: MAGNESIUM SULFATE / D5W 1 GM/100 ML BAG IV ONE (08:46)
[2022-06-07] MEDS ORDERED: POTASSIUM PHOS 3 MMOL/1 ML INFUSION IV STA (08:47)
[2022-06-07] MEDS ORDERED: FUROSEMIDE INJ 20 MG/2 ML VIAL IV ONE ×2 (08:55→17:37)
[2022-06-07] MEDS ORDERED: ALBUMIN 25% 100 mL 25 GM/100 ML VIAL IV ONE ×2 (08:55→17:37)
--- NOTE | 2022-06-07 08:56 | XRay Report ---
XR chest 1V portable CLINICAL HISTORY: Follow-up pleural effusions. COMPARISON STUDY: 06/01/[address] chest from 06/02/2022 TECHNIQUE: 1 view of the chest FINDINGS: Single frontal view of the chest demonstrates the cardiomediastinal silhouette to be within normal li mits. Compared to previous examination, diffuse haziness is now seen involving both lungs most charac teristic of pleural fluid layering along the posterior gutters. There is also evidence for mild diffu se interstitial edema. Follow-up PA and lateral radiographs would be the study of choice for further evaluation. There is also left basilar atelectasis. No confluent alveolar opacities are present. Ther e is no acute osseous pathology. IMPRESSION: 1. Evidence for bilateral pleural effusions layering along the posterior gutters. 2. Evidence for interval interstitial edema. 3. Left basilar atelectasis. 4. Additional PA and lateral radiographs are recommended for further evaluation. ACT 112: Negative or not required by law. Electronically signed by: Brandon Guthrie M.D. 06/07/2022 8:54 AM
[2022-06-07] MEDS ORDERED: POTASSIUM PHOSPHATE 15 MMOL in SODIUM CHLORIDE 0.9% 250 ML IV ONE (09:00)
--- NOTE | 2022-06-07 10:17 | Hospitalist Progress Note ---
Date of Service June 07, 2022 Assessment & Plan (1) Sepsis: Plan: - Met sepsis criteria manifested by leukocytosis, tachycardia and hypotension with elevated lactate - Source confirmed follow ultrasound-guided paracentesis on 06/04 to be SBP - Antibiotics changed from Rocephin/Zithromax initially to Zosyn on 06/04 which has broader coverage for SBP-plan for 10 days of antibiotic therapy -Continues with leukocytosis, some of which may be from severe anemia. Remains afebrile, tachycardia and hypotension are improved with IV albumin -Peritoneal fluid culture now preliminarily negative, but he was on antibiotics for many days prior to paracentesis - Blood cultures remain no growth to date -Urinalysis not consistent with infection -Procalcitonin markedly elevated at 170 on admission and is now down to 7 -Continue to follow CBC, CMP (2) Cirrhosis: Plan: Noted on imaging, likely secondary to history of chronic alcohol use disorder Family history positive for mother who at age 55 from cirrhosis as well-she also had alcohol use disorder, however question if there is a hereditary component to these cirrhosis With massive ascites suggestive of portal hypertension, but could be secondary to unknown malignancy With severe hypoalbuminemia with albumin being undetectable upon admission, now improved with IV albumin Surprisingly, platelets are low end of normal and INR previously only mildly elevated at 1.2 but has since climbed to 1.6.. Only total bilirubin mildly elevated at 1.5 No evidence of hepatic encephalopathy Meld score now up to 13 points indicating 6% estimated 3-month mortality Continue IV albumin and IV Lasix to diurese and improve hypoxia SUSAN Estrada did discuss the case with on-call GI Dr. Patricia Dimas on 06/04 regarding the abnormal MRCP but no ERCP was recommended for the pancreatic duct stones due to patient not having active pancreatitis (3) Spontaneous bacterial peritonitis: Plan: As above, treating with Zosyn as cefotaxime not available which would be first- line choice Culture pending but negative to date Cytology negative for malignancy Ascites secondary to cirrhosis versus malignancy? (4) Acute respiratory failure with hypoxia: Plan: - with large b/l pleural effusions secondary to profound hypoalbuminemia pt is third spacing -Also suspect TRALI as he was not requiring O2 prior to blood transfusion, but required large amounts of O2 immediately after 1 unit of PRBCs infused. Chest x-ray on 06/07 with diffuse haziness-appears like ARDS, also with layering pleural effusions and atelectasis -Could be acute diastolic CHF- checking proBNP and echocardiogram - Supplemental oxygen provided-now on Vapotherm now weaned down to 75% FiO2, 40 L after some diuresis -Goal of care as discussed with patient is to attempt diuresis with IV albumin and Lasix in order to wean oxygen requirement down so he can be discharged out of the hospital to a fci -Give Lasix 20 Mg IV twice daily along with IV albumin today -Replace potassium and magnesium again today -Continue incentive spirometry (5) Cachexia: Plan: Possibly secondary to unknown malignancy, CEA elevated, possible pancreatic cancer given pancreatic lesion Also could be due to cirrhosis TSH normal No other significant abnormalities consistent with malignancy seen on CT chest/abdomen/pelvis or on physical examination -He does not have a history of IV drug use and has not had unprotected intercourse in many years, but does report that he has been in and out of shelter his whole life -With his consent, will check HIV, hepatitis (6) Anemia: Plan: Macrocytic, B12 and folate normal, serum iron slightly low Peripheral smear unremarkable Chronic anemia most likely secondary to liver disease Hemoglobin had been stable throughout hospitalization but then with acute drop to 7.2 on 06/05 with no obvious bleeding noted and fecal occult negative -Transfused 1 unit PRBCs and then had significant hypoxia-second unit PRBCs not given - CTA a/p is without obvious source of bleeding -Hemoglobin remains stable since transfusion at 10.6 which seems quite high after only 1 unit of PRBCs -Follow CBC again in the morning (7) Protein calorie malnutrition: Plan: - Patient states he only eats 1 or 2 times a day, for the past 2 weeks [employer] he had not been eating very much at all, however his weight loss has apparently been going ongoing for many months. Patient states he was diagnosed with pancreatic cancer in 2010 along with his diabetes, however there are no oncology notes or no note of this or any cancer for that matter in his PCP notes. It seems that his PCP was recommending chest CT, CT A/P, and UA to rule out malignancies. - CXR, CT A/P on admit without any evidence for mass or any kind of infectious inflammatory process. - Consulted RD for nutritional supplementations - started on IV Thiamine due to malnutrition and elevated lactate, liver disease - Albumin has been undetectable on labs but now improved with IV albumin - Suspicious of malignancy, MRCP obtained d/t ?findings of IPMN on RUQ ultrasound. MRCP results as above, ascites and cirrhotic liver noted. - CEA and CA 19-9 obtained. CEA elevated, CA 19-9 pending. Per primary care records, was set up for o/p screening colo 2 years ago but didn't go as he didn't have transportation. ? metastatic colon ca but no obvious masses noted via imaging and no suspicious lesions noted on imaging of liver - He is now receiving IV Albumin with his level up to 2.4 but of course this is only a temporizing measure (8) Hypoglycemia: Plan: - Presenting sugar 56 on BMP, 58 POC glucose. Patient has not been eating much over the past 2 weeks, yet intermittently taking his insulin. - D5 1/2 NSS @ 125 cc/hr ordered on admit which is now been discontinued - Held home insulin, started on SSI, regular diet, no carb ratio. -with hypoglycemia in to the 30s on evening of 06/04 - Lesion in the pancreatic tail noted on ultrasound 06/02, MRCP performed, evidence of chronic pancreatitis with stones in pancreatic duct. Spoke w/ GI, no indication for ERCP at this time. - Cirrhotic liver and ascites noted on MRCP also likely contributing -Now with some hyperglycemia-reinstitute sliding scale insulin but will make it very loose (9) Ascites: Plan: - Repeat CTA a/p 06/05, read as large ascites - MRCP confirmed cirrhotic liver - Additional doses of IV Albumin ordered (10) Insulin dependent diabetes mellitus: Plan: - Presented with blood sugar of 56, started on D5 and half-normal saline 125 cc/hour. Sugar improving, patient hungry and being fed. - Hold home insulin (Lantus 2 units twice daily with NovoLog 3 units at mealtimes) cover with SSI without carb ratio. - A1c only 5.3% - Continue gabapentin for neuropathy. - [place] diet given hypoglycemia & severe malnutrition. (11) Hypothyroidism: Plan: - Continue levothyroxine. - TSH 5.4, free T4 1.16. - Would hold off on any adjustments in Synthroid at present as gut wall edema was likely preventing good absorption of medication (12) Alcoholism: Plan: - History of, last drink in 2019. - Evidence of cirrhosis noted on MRCP with ascites (13) Urinary retention: Plan: - Requiring bill to be placed by urology on 06/04 -Continue to maintain Bill catheter Blood pressure could not tolerate tamsulosin (14) Hypophosphatemia: Plan: Replace with IV potassium phosphorus Follow level in the morning (15) TRALI (transfusion related acute lung injury): Plan: As above Plan Given patient's progressive decline, multiple lengthy discussions with him as well as his brother and [id number] at bedside that given his undetectable albumin level, now with evidence of third spacing and accumulation of ascites, pleural effusions, and persistent hypotension, severe hypoxia, his overall prognosis is poor. I told him that at this time, his options for treatment are limited and that it is very likely his condition will only decline further until he would have multisystem organ failure. Noah seemed to understand that he is dying and had a degree of acceptance. He has two brothers, one (Henri) is his oldest brother and he would like to be primarily making decisions about his care if he should become incapacitated and not able to do so for himself. He does have a son but seems that he is estranged. We discussed code status and he und erstands his poor prognosis and likely what would be a poor outcome if we were to attempt a full resuscitation and he has voiced his wish to be DNR/DNI. Therefore, this change has been reflected in his chart. On 06/06, Noah has goals of the following: Attempts at diuresis to improve hypoxia so that he can leave the hospital and go to a fci on hospice. If deteriorates further while in the hospital, okay to transition to comfort measures only with IV morphine and comfort medications. Palliative care provider, Dr. Liang, is on consult, greatly appreciate assistance. Admission and Anticipated Discharge Date Admission Date: June 01, 2022 Subjective Patient reports feeling slightly better today, not short of breath but remains on Vapotherm at 40 L and 75% FiO2. He has had multiple bowel movements overnight and thinks that he had incontinence just now as I am speaking to him. He was able to eat a little bit for breakfast this morning. No chest pain, still some back pain from him being cachectic and laying in bed all the time. Telemetry with normal sinus rhythm, PACs, some short runs of atrial tachycardia, rates in the 70s Review of Systems Review of Systems: All systems reviewed & are unremarkable except as noted in HPI & below Physical Exam Physical Exam: GENERAL: 51 yo chronically ill appearing markedly underweight WM who appears older than stated age. NAD. Vapotherm nasal cannula in place. Cachectic LUNGS: Diminished in bases bilaterally, no wheezes or rhonchi appreciated, with crackles in the middle lung vann bilaterally, unlabored breathing CARDIOVASCULAR: Regular rate and rhythm. No murmurs gallops or rubs ABDOMEN: Soft, nontender, positive mild distention, positive bowel sounds : bill catheter in place, draining clear yellow urine EXTREMITIES: Trace edema in all 4 extremities, sarcopenia diffusely NEUROLOGIC: A&O x3. Nonfocal PSYCHIATRIC: Cooperative. Appropriate mood and affect. SKIN: Warm, dry, intact. Abrasions and bruises noted on b/l upper extremities. Results & Data Results & Data ([facility]) Vital Signs (Past 12 Hours) Vital Signs Temp Pulse Pulse Pulse Resp BP BP 06/07/22 08:00 36.6 C 80 16 95/71 L 06/07/22 07:19 75 18 06/07/22 02:59 36.5 C 82 18 96/68 L 06/07/22 03:50 80 16 06/06/22 23:53 36.6 C 82 18 90/65 L 06/06/22 23:15 83 06/06/22 23:15 06/06/22 22:48 86 18 Pulse Ox O2 Del Method O2 Flow Rate FiO2 06/07/22 08:00 96 High Flow Nasal Cannula 06/07/22 07:19 95 High Flow Nasal Cannula 40 75 06/07/22 02:59 97 High Flow Nasal Cannula 40 06/07/22 03:50 96 High Flow Nasal Cannula 40 85 06/06/22 23:53 93 High Flow Nasal Cannula 40 06/06/22 23:15 06/06/22 23:15 High Flow Nasal Cannula 06/06/22 22:48 94 High Flow Nasal Cannula 40 85 Laboratory Results 06/07/22 06/07/22 06/07/22 Range/Units 16:49 11:52 11:25 WBC (4.8-10.8) K/ul RBC (4.63-6.08) M/uL Hgb (14.0-18.0) g/dl Hct (40.1-51.0) % MCV (80.0-100.0) fL MCH (25.0-34.0) pg MCHC (32.0-36.0) g/dL RDW Std Deviation (36.4-46.3) fL RDW Coeff of Lay (11.5-14.5) % Plt Count (130-400) K/uL MPV (9.4-12.4) fL Immature Gran % (Auto) % Neut % (Auto) % Lymph % (Auto) % Mineral % (Auto) % Eos % (Auto) % Baso % (Auto) % Neut # (Auto) (1.4-6.5) K/uL Lymph # (Auto) (1.2-3.4) K/uL Mineral # (Auto) (0.24-0.82) K/uL Eos # (Auto) (0-0.50) K/uL Baso # (Auto) (0-0.2) K/uL Immature Gran # (Auto) (0.00-0.02) K/uL Absolute Nucleated RBC (0-0) K/uL Nucleated RBC % (auto) % Polychromasia Anisocytosis Target Cells PT (9.0-12.0) Seconds INR (0.9-1.1) Sodium (136-145) mmol/L Potassium (3.5-5.1) mmol/L Chloride (98-107) mmol/L Carbon Dioxide (21-32) mmol/L Anion Gap (3-11) BUN (6-23) mg/dl Creatinine (0.6-1.4) mg/dl Est Cr Clr Drug Dosing ml/min Est GFR ( Amer) ml/min Est GFR (Non-Af Amer) ml/min BUN/Creatinine Ratio (10-20) Glucose (70-99(Fasting)) mg/dl POC Glucose 172 H 212 H (70-99) mg/dl Calcium (8.5-10.1) mg/dl Phosphorus (2.5-4.9) mg/dl Magnesium (1.7-2.4) mg/dl Total Bilirubin (0.2-1.0) mg/dl AST (13-39) U/L ALT (7-52) U/L Alkaline Phosphatase (34-104) U/L B-Natriuretic Peptide (0-100) pg/ml Total Protein (6.0-8.3) gm/dl Albumin (3.4-5.0) gm/dl Globulin (2.5-4.0) gm/dl Albumin/Globulin Ratio (0.9-2) Hepatitis A IgM Ab Hep Bs Antigen Hep Bs Ag Confirmation Hep B Core IgM Ab Hepatitis C Ab (EIA) Hep C Ab Signal/Cutoff HIV (1&2) Ag & Ab Conf Pending HIV 1&2 Ab/P24 Ag 4thGn 06/07/22 06/07/22 06/07/22 Range/Units 11:25 11:25 11:25 WBC (4.8-10.8) K/ul RBC (4.63-6.08) M/uL Hgb (14.0-18.0) g/dl Hct (40.1-51.0) % MCV (80.0-100.0) fL MCH (25.0-34.0) pg MCHC (32.0-36.0) g/dL RDW Std Deviation (36.4-46.3) fL RDW Coeff of Lay (11.5-14.5) % Plt Count (130-400) K/uL MPV (9.4-12.4) fL Immature Gran % (Auto) % Neut % (Auto) % Lymph % (Auto) % Mineral % (Auto) % Eos % (Auto) % Baso % (Auto) % Neut # (Auto) (1.4-6.5) K/uL Lymph # (Auto) (1.2-3.4) K/uL Mineral # (Auto) (0.24-0.82) K/uL Eos # (Auto) (0-0.50) K/uL Baso # (Auto) (0-0.2) K/uL Immature Gran # (Auto) (0.00-0.02) K/uL Absolute Nucleated RBC (0-0) K/uL Nucleated RBC % (auto) % Polychromasia Anisocytosis Target Cells PT (9.0-12.0) Seconds INR (0.9-1.1) Sodium (136-145) mmol/L Potassium (3.5-5.1) mmol/L Chloride (98-107) mmol/L Carbon Dioxide (21-32) mmol/L Anion Gap (3-11) BUN (6-23) mg/dl Creatinine (0.6-1.4) mg/dl Est Cr Clr Drug Dosing ml/min Est GFR ( Amer) ml/min Est GFR (Non-Af Amer) ml/min BUN/Creatinine Ratio (10-20) Glucose (70-99(Fasting)) mg/dl POC Glucose (70-99) mg/dl Calcium (8.5-10.1) mg/dl Phosphorus (2.5-4.9) mg/dl Magnesium (1.7-2.4) mg/dl Total Bilirubin (0.2-1.0) mg/dl AST (13-39) U/L ALT (7-52) U/L Alkaline Phosphatase (34-104) U/L B-Natriuretic Peptide 2548 H (0-100) pg/ml Total Protein (6.0-8.3) gm/dl Albumin (3.4-5.0) gm/dl Globulin (2.5-4.0) gm/dl Albumin/Globulin Ratio (0.9-2) Hepatitis A IgM Ab Pending Hep Bs Antigen Pending Hep Bs Ag Confirmation Pending Hep B Core IgM Ab Pending Hepatitis C Ab (EIA) Pending Hep C Ab Signal/Cutoff Pending HIV (1&2) Ag & Ab Conf HIV 1&2 Ab/P24 Ag 4thGn Cancelled 06/07/22 06/07/22 06/07/22 Range/Units 07:48 07:31 07:31 WBC (4.8-10.8) K/ul RBC (4.63-6.08) M/uL Hgb (14.0-18.0) g/dl Hct (40.1-51.0) % MCV (80.0-100.0) fL MCH (25.0-34.0) pg MCHC (32.0-36.0) g/dL RDW Std Deviation (36.4-46.3) fL RDW Coeff of Lay (11.5-14.5) % Plt Count (130-400) K/uL MPV (9.4-12.4) fL Immature Gran % (Auto) % Neut % (Auto) % Lymph % (Auto) % Mineral % (Auto) % Eos % (Auto) % Baso % (Auto) % Neut # (Auto) (1.4-6.5) K/uL Lymph # (Auto) (1.2-3.4) K/uL Mineral # (Auto) (0.24-0.82) K/uL Eos # (Auto) (0-0.50) K/uL Baso # (Auto) (0-0.2) K/uL Immature Gran # (Auto) (0.00-0.02) K/uL Absolute Nucleated RBC (0-0) K/uL Nucleated RBC % (auto) % Polychromasia Anisocytosis Target Cells PT 16.7 H (9.0-12.0) Seconds INR 1.6 H (0.9-1.1) Sodium 141 (136-145) mmol/L Potassium 3.2 L (3.5-5.1) mmol/L Chloride 109 H (98-107) mmol/L Carbon Dioxide 28 (21-32) mmol/L Anion Gap 4 (3-11) BUN 13 (6-23) mg/dl Creatinine 0.69 (0.6-1.4) mg/dl Est Cr Clr Drug Dosing 75.3 ml/min Est GFR ( Amer) 125.6 ml/min Est GFR (Non-Af Amer) 108.4 ml/min BUN/Creatinine Ratio 18.8 (10-20) Glucose 143 H (70-99(Fasting)) mg/dl POC Glucose 144 H (70-99) mg/dl Calcium 7.5 L (8.5-10.1) mg/dl Phosphorus 1.5 L* (2.5-4.9) mg/dl Magnesium 1.9 (1.7-2.4) mg/dl Total Bilirubin 1.5 H (0.2-1.0) mg/dl AST 19 (13-39) U/L ALT 22 (7-52) U/L Alkaline Phosphatase 55 (34-104) U/L B-Natriuretic Peptide (0-100) pg/ml Total Protein 4.2 L (6.0-8.3) gm/dl Albumin 2.7 L (3.4-5.0) gm/dl Globulin 1.5 L (2.5-4.0) gm/dl Albumin/Globulin Ratio 1.8 (0.9-2) Hepatitis A IgM Ab Hep Bs Antigen Hep Bs Ag Confirmation Hep B Core IgM Ab Hepatitis C Ab (EIA) Hep C Ab Signal/Cutoff HIV (1&2) Ag & Ab Conf HIV 1&2 Ab/P24 Ag 4thGn 06/07/22 06/06/22 Range/Units 07:31 20:12 WBC 17.22 H (4.8-10.8) K/ul RBC 3.01 L (4.63-6.08) M/uL Hgb 10.7 L (14.0-18.0) g/dl Hct 30.3 L (40.1-51.0) % MCV 100.7 H (80.0-100.0) fL MCH 35.5 H (25.0-34.0) pg MCHC 35.3 (32.0-36.0) g/dL RDW Std Deviation 75.3 H (36.4-46.3) fL RDW Coeff of Lay 20.4 H (11.5-14.5) % Plt Count 140 (130-400) K/uL MPV 12.0 (9.4-12.4) fL Immature Gran % (Auto) 1.0 % Neut % (Auto) 82.3 % Lymph % (Auto) 11.9 % Mineral % (Auto) 4.4 % Eos % (Auto) 0.2 % Baso % (Auto) 0.2 % Neut # (Auto) 14.17 H (1.4-6.5) K/uL Lymph # (Auto) 2.05 (1.2-3.4) K/uL Mineral # (Auto) 0.75 (0.24-0.82) K/uL Eos # (Auto) 0.04 (0-0.50) K/uL Baso # (Auto) 0.04 (0-0.2) K/uL Immature Gran # (Auto) 0.17 H (0.00-0.02) K/uL Absolute Nucleated RBC 0.02 H (0-0) K/uL Nucleated RBC % (auto) 0.1 % Polychromasia 2+ Anisocytosis Present Target Cells 2+ PT (9.0-12.0) Seconds INR (0.9-1.1) Sodium (136-145) mmol/L Potassium (3.5-5.1) mmol/L Chloride (98-107) mmol/L Carbon Dioxide (21-32) mmol/L Anion Gap (3-11) BUN (6-23) mg/dl Creatinine (0.6-1.4) mg/dl Est Cr Clr Drug Dosing ml/min Est GFR ( Amer) ml/min Est GFR (Non-Af Amer) ml/min BUN/Creatinine Ratio (10-20) Glucose (70-99(Fasting)) mg/dl POC Glucose 177 H (70-99) mg/dl Calcium (8.5-10.1) mg/dl Phosphorus (2.5-4.9) mg/dl Magnesium (1.7-2.4) mg/dl Total Bilirubin (0.2-1.0) mg/dl AST (13-39) U/L ALT (7-52) U/L Alkaline Phosphatase (34-104) U/L B-Natriuretic Peptide (0-100) pg/ml Total Protein (6.0-8.3) gm/dl Albumin (3.4-5.0) gm/dl Globulin (2.5-4.0) gm/dl Albumin/Globulin Ratio (0.9-2) Hepatitis A IgM Ab Hep Bs Antigen Hep Bs Ag Confirmation Hep B Core IgM Ab Hepatitis C Ab (EIA) Hep C Ab Signal/Cutoff HIV (1&2) Ag & Ab Conf HIV 1&2 Ab/P24 Ag 4thGn PG Care Time/CCT Total # of Minutes Spent Total Time Spent with Patient: Total time spent is greater than 50% in coordination of care (as documented) at patient's floor/unit and/or counseling patient: Coding Level of Care Code 67375 Subseq Hosp Care Lvl 3 Diagnoses Sepsis A41.9 Cirrhosis K74.60 Spontaneous bacterial peritonitis K65.2 Acute respiratory failure with hypoxia J96.01 Cachexia R64 Anemia D64.9 Protein calorie malnutrition E46 Hypoglycemia E16.2 Ascites R18.8 Insulin dependent diabetes mellitus E11.9; Z79.4 Hypothyroidism E03.9 Alcoholism F10.20 Urinary retention R33.9 Hypophosphatemia E83.39 TRALI (transfusion related acute lung injury) J95.84
[2022-06-07] MEDS: POTASSIUM CHLORIDE CRTAB 20 MEQ TABCR PO SCH ×3 (10:51→20:09)
--- NOTE | 2022-06-07 17:25 | XCELERA ---
[id number]
[2022-06-07] MEDS: INSULIN ASPART PER UNIT SC SCH ×2 (17:42→21:38)
[2022-06-07] MEDS: MELATONIN 3 MG TAB PO SCH (20:09)
[2022-06-08] MEDS: LEVOTHYROXINE SODIUM 50 MCG TABLET PO SCH (06:07)
[2022-06-08] MEDS: PIPERACILLIN/TAZOBACTAM 3.375 GM in DEXTROSE 5% 100 ML IV SCH ×3 (06:08→22:15)
[2022-06-08] MEDS: GABAPENTIN 300 MG CAP PO SCH ×2 (07:24→21:05)
[2022-06-08 07:42] LABS: HBSAG NON-REACTIVE (NON-REACTIVE); Hepatitis A Antibody IgM NON-REACTIVE (NON-REACTIVE); Hepatitis B Core Antibody IgM NON-REACTIVE (NON-REACTIVE)
[2022-06-08] MEDS: INSULIN ASPART PER UNIT SC SCH ×4 (08:29→21:08)
[2022-06-08] MEDS: THIAMINE HCL 200 MG in SODIUM CHLORIDE 0.9% 50 ML IV SCH (08:35)
[2022-06-08] MEDS: ACETAMINOPHEN 325 MG TAB PO PRN ×3 (10:33→21:07)
[2022-06-08 10:56] LABS: BUN Creatinine Ratio 15.9 (10-20); Calcium 7.9 mg/dl (8.5-10.1); Creatinine Clr Calc Pharmacy 82.5 ml/min; Est GFR (African American) 130.4 ml/min; Est GFR (Non-African American) 112.5 ml/min; Potassium 3.3 mmol/L (3.5-5.1)
[2022-06-08] MEDS ORDERED: POTASSIUM CHLORIDE CRTAB 20 MEQ TABCR PO STA (11:42)
[2022-06-08 11:55] LABS: Albumin Globulin Ratio 1.9 (0.9-2); Albumin Level 3.1 gm/dl (3.4-5.0); Bilirubin,Total 2.2 mg/dl (0.2-1.0); Globulin 1.6 gm/dl (2.5-4.0); Magnesium 1.8 mg/dl (1.7-2.4); Phosphorus 1.4 mg/dl (2.5-4.9); Total Protein 4.7 gm/dl (6.0-8.3)
[2022-06-08] MEDS: FUROSEMIDE 40 MG/4 ML VIAL IV SCH ×2 (11:57→17:44)
[2022-06-08] MEDS: ALBUMIN 25% 100 mL 25 GM/100 ML VIAL IV SCH ×2 (11:58→17:44)
[2022-06-08] MEDS ORDERED: POTASSIUM PHOS 3 MMOL/1 ML INFUSION IV STA (12:01)
[2022-06-08] MEDS ORDERED: POTASSIUM PHOSPHATE 21 MMOL in SODIUM CHLORIDE 0.9% 500 ML IV ONE (12:30)
[2022-06-08 13:36] LABS: Hematocrit (blood only) 37.9 % (40.1-51.0); Hemoglobin 12.4 g/dl (14.0-18.0); Mean Corpuscular Hgb Conc 32.7 g/dL (32.0-36.0); Mean Corpuscular Volume 107.1 fL (80.0-100.0); Mean Platelet Volume 11.8 fL (9.4-12.4); Platelet Count 120 K/uL (130-400); RDW Coefficient of Variation 20.8 % (11.5-14.5); RDW Standard Deviation 81.7 fL (36.4-46.3); Red Blood Count 3.54 M/uL (4.63-6.08); White Blood Count 20.01 K/ul (4.8-10.8)
[2022-06-08 14:08] LABS: Acanthocytes 1+; Anisocytosis Present; Basophils # (auto) 0.05 K/uL (0-0.2); Basophils % (auto) 0.2 %; Eosinophils # (auto) 0.03 K/uL (0-0.50); Eosinophils % (auto) 0.1 %; Immature Granulocytes # (auto) 0.16 K/uL (0.00-0.02); Immature Granulocytes % (auto) 0.8 %; Lymphocytes # (auto) 2.69 K/uL (1.2-3.4); Lymphocytes % (auto) 13.4 %; Macrocytosis Present; Monocytes # (auto) 0.69 K/uL (0.24-0.82); Monocytes % (auto) 3.4 %; Neutrophils # (auto) 16.39 K/uL (1.4-6.5); Neutrophils % (auto) 82.1 %; Polychromasia 1+; Target Cells 1+; Tear Drop Cells 1+
[2022-06-08] MEDS: POTASSIUM CHLORIDE CRTAB 20 MEQ TABCR PO SCH ×2 (14:45→21:04)
--- NOTE | 2022-06-08 19:24 | Hospitalist Progress Note ---
Date of Service June 08, 2022 Assessment & Plan (1) Sepsis: Plan: - Met sepsis criteria manifested by leukocytosis, tachycardia and hypotension with elevated lactate - Source confirmed follow ultrasound-guided paracentesis on 06/04 to be SBP - Antibiotics changed from Rocephin/Zithromax initially to Zosyn on 06/04 which has broader coverage for SBP-plan for 10 days of antibiotic therapy-last day of treatment would be 06/13 -Continues with worsening leukocytosis, some of which may be from severe anemia, however is now developing diarrhea-concern for C. difficile Remains afebrile, tachycardia and hypotension are improved with IV albumin -Peritoneal fluid culture now preliminarily negative, but he was on antibiotics for many days prior to paracentesis - Blood cultures remain no growth to date -Urinalysis not consistent with infection -Procalcitonin markedly elevated at 170 on admission and is now down to 7 -Continue to follow CBC, CMP -Check C. difficile stool (2) Cirrhosis: Plan: Noted on imaging, likely secondary to history of chronic alcohol use disorder Family history positive for mother who at age 55 from cirrhosis as well-she also had alcohol use disorder, however question if there is a hereditary component to these cirrhosis With massive ascites suggestive of portal hypertension, but could be secondary to unknown malignancy With severe hypoalbuminemia with albumin being undetectable upon admission, now improved with IV albumin Surprisingly, platelets are low end of normal and INR previously only mildly elevated at 1.2 but has since climbed to 1.6.. Only total bilirubin mildly elevated at 1.5 No evidence of hepatic encephalopathy Meld score now up to 13 points indicating 6% estimated 3-month mortality Continue IV albumin and IV Lasix to diurese and improve hypoxia SUSAN Estrada did discuss the case with on-call GI Dr. Patricia Dimas on 06/04 regarding the abnormal MRCP but no ERCP was recommended for the pancreatic duct stones due to patient not having active pancreatitis (3) Spontaneous bacterial peritonitis: Plan: As above, treating with Zosyn as cefotaxime not available which would be first- line choice Culture pending but negative to date Cytology negative for malignancy Ascites secondary to cirrhosis versus malignancy? (4) Acute respiratory failure with hypoxia: Plan: - with large b/l pleural effusions secondary to profound hypoalbuminemia pt is third spacing -Also suspect TRALI as he was not requiring O2 prior to blood transfusion, but required large amounts of O2 immediately after 1 unit of PRBCs infused. Chest x-ray on 06/07 with diffuse haziness-appears like ARDS, also with layering pleural effusions and atelectasis -Could also be secondary to acute HFrEF as proBNP elevated at 2000 and echocardiogram consistent with moderate to severely reduced EF with LVEF 30-35% and wall motion abnormalities - Supplemental oxygen provided-was requiring max settings of Vapotherm and now continues to wean down to 40 % FiO2, 30 L with ongoing diuresis -Goal of care as discussed with patient is to attempt diuresis with IV albumin and Lasix in order to wean oxygen requirement down so he can be discharged out of the hospital to a fdc -Increase Lasix to 40 Mg IV twice daily along with IV albumin -Replace potassium and magnesium, phosphorus again today -Continue incentive spirometry (5) Cachexia: Plan: Possibly secondary to unknown malignancy, CEA elevated, possible pancreatic cancer given pancreatic lesion Also could be due to cirrhosis TSH normal No other significant abnormalities consistent with malignancy seen on CT ch est/abdomen/pelvis or on physical examination -He does not have a history of IV drug use and has not had unprotected intercourse in many years, but does report that he has been in and out of penitentiary his whole life -With his consent, checked HIV, hepatitis-all negative (6) Anemia: Plan: Macrocytic, B12 and folate normal, serum iron slightly low Peripheral smear unremarkable Chronic anemia most likely secondary to liver disease Hemoglobin had been stable throughout hospitalization but then with acute drop to 7.2 on 06/05 with no obvious bleeding noted and fecal occult negative -Transfused 1 unit PRBCs and then had significant hypoxia-second unit PRBCs not given - CTA a/p is without obvious source of bleeding -Hemoglobin remains stable and is actually now increased to 12 since transfusion -Follow CBC again in the morning (7) Protein calorie malnutrition: Plan: - Patient states he only eats 1 or 2 times a day, for the past 2 weeks [employer] he had not been eating very much at all, however his weight loss has apparently been going ongoing for many months. Patient states he was diagnosed with pancreatic cancer in 2010 along with his diabetes, however there are no oncology notes or no note of this or any cancer for that matter in his PCP notes. It seems that his PCP was recommending chest CT, CT A/P, and UA to rule out malignancies. - CXR, CT A/P on admit without any evidence for mass or any kind of infectious inflammatory process. - Consulted RD for nutritional supplementations - started on IV Thiamine due to malnutrition and elevated lactate, liver disease - Albumin has been undetectable on labs but now improved with IV albumin - Suspicious of malignancy, MRCP obtained d/t ?findings of IPMN on RUQ ultrasound. MRCP results as above, ascites and cirrhotic liver noted. - CEA and CA 19-9 obtained. CEA elevated, CA 19-9 pending. Per primary care records, was set up for o/p screening colo 2 years ago but didn't go as he didn't have transportation. ? metastatic colon ca but no obvious masses noted via imaging and no suspicious lesions noted on imaging of liver - He is now receiving IV Albumin with his level up to 2.4 but of course this is only a temporizing measure given the cirrhosis (8) Hypoglycemia: Plan: - Presenting sugar 56 on BMP, 58 POC glucose. Patient has not been eating much over the past 2 weeks, yet intermittently taking his insulin. - D5 1/2 NSS @ 125 cc/hr ordered on admit which is now been discontinued - Held home insulin, started on SSI, regular diet, no carb ratio. -with hypoglycemia in to the 30s on evening of 06/04 - Lesion in the pancreatic tail noted on ultrasound 06/02, MRCP performed, evidence of chronic pancreatitis with stones in pancreatic duct. Spoke w/ GI, no indication for ERCP at this time. - Cirrhotic liver and ascites noted on MRCP also likely contributing -Now with some hyperglycemia-reinstitute sliding scale insulin but will make it very loose (9) Ascites: Plan: - Repeat CTA a/p 06/05, read as large ascites - MRCP confirmed cirrhotic liver - Additional doses of IV Albumin ordered (10) Insulin dependent diabetes mellitus: Plan: - Presented with blood sugar of 56, started on D5 and half-normal saline 125 cc/hour. Sugar improving, patient hungry and being fed. - Hold home insulin (Lantus 2 units twice daily with NovoLog 3 units at mealtimes) cover with SSI without carb ratio. - A1c only 5.3% - Continue gabapentin for neuropathy. - [place] diet given hypoglycemia & severe malnutrition. (11) Hypothyroidism: Plan: - Continue levothyroxine. - TSH 5.4, free T4 1.16. - Would hold off on any adjustments in Synthroid at present as gut wall edema was likely preventing good absorption of medication (12) Alcoholism: Plan: - History of, last drink in 2019. - Evidence of cirrhosis noted on MRCP with ascites (13) Urinary retention: Plan: - Requiring bill to be placed by urology on 06/04 -Continue to maintain Bill catheter Blood pressure could not tolerate tamsulosin (14) Hypophosphatemia: Plan: Replace with IV potassium phosphorus Follow level in the morning (15) TRALI (transfusion related acute lung injury): Plan: As above (16) HFrEF (heart failure with reduced ejection fraction): Plan: As above Diuresing Blood pressure cannot tolerate CHAVA inhibitor or metoprolol Plan Given patient's progressive decline, multiple lengthy discussions with him as well as his brother and [id number] at bedside that given his undetectable albumin level, now with evidence of third spacing and accumulation of ascites, pleural effusions, and persistent hypotension, severe hypoxia, his overall prognosis is poor. I told him that at this time, his options for treatment are limited and that it is very likely his condition will only decline further until he would have multisystem organ failure. Noah seemed to understand that he is dying and had a degree of acceptance. He has two brothers, one (Henri) is his oldest brother and he would like to be primarily making decisions about his care if he should become incapacitated and not able to do so for himself. He does have a son but seems that he is estranged. We discussed code status and he understands his poor prognosis and likely what would be a poor outcome if we were to attempt a full resuscitation and he has voiced his wish to be DNR/DNI. Therefore, this change has been reflected in his chart. On 06/06, Noah has goals of the following: Attempts at diuresis to improve hypoxia so that he can leave the hospital and go to a fdc on hospice. If deteriorates further while in the hospital, okay to transition to comfort measures only with IV morphine and comfort medications. Palliative care provider, Dr. Liang, is on consult, greatly appreciate assistance. Admission and Anticipated Discharge Date Admission Date: June 01, 2022 Subjective Patient reports that all he wants to do is just sleep. Feels his shortness of breath is a little bit better. Vapotherm is now weaned down to 30 L and 40% FiO2. He has complaints of frequent loose stools Telemetry with normal sinus rhythm with rates in the 70s to 80s Review of Systems Review of Systems: All systems reviewed & are unremarkable except as noted in HPI & below Physical Exam Physical Exam: GENERAL: 51 yo chronically ill appearing markedly underweight WM who appears older than stated age. NAD. Vapotherm nasal cannula in place. Cachectic LUNGS: Diminished in bases bilaterally, no wheezes or rhonchi appreciated, no crackles, unlabored breathing CARDIOVASCULAR: Regular rate and rhythm. No murmurs gallops or rubs ABDOMEN: Soft, nontender, positive mild distention, positive bowel sounds : bill catheter in place, draining clear yellow urine EXTREMITIES: Trace edema in all 4 extremities, sarcopenia diffusely NEUROLOGIC: A&O x3. Nonfocal PSYCHIATRIC: Cooperative. Appropriate mood and affect. SKIN: Warm, dry, intact. Abrasions and bruises noted on b/l upper extremities. Results & Data Results & Data ([facility]) Vital Signs (Past 12 Hours) Vital Signs Temp Pulse Pulse Pulse Resp BP Pulse Ox 06/08/22 18:59 84 18 94 06/08/22 15:57 63 20 93 06/08/22 15:26 84 06/08/22 15:12 36.4 C L 88 20 97/67 L 95 06/08/22 11:59 36.8 C 84 20 102/72 96 06/08/22 11:06 88 20 88 L 06/08/22 08:00 79 06/08/22 08:00 06/08/22 07:29 83 18 96 06/08/22 07:27 36.7 C 54 L 18 102/69 95 O2 Del Method O2 Flow Rate FiO2 06/08/22 18:59 High Flow Nasal Cannula 25 40 06/08/22 15:57 High Flow Nasal Cannula 30 40 06/08/22 15:26 06/08/22 15:12 06/08/22 11:59 06/08/22 11:06 High Flow Nasal Cannula 30 40 06/08/22 08:00 06/08/22 08:00 High Flow Nasal Cannula 30 50 06/08/22 07:29 High Flow Nasal Cannula 30 50 06/08/22 07:27 High Flow Nasal Cannula 4 Laboratory Results 06/08/22 06/08/22 06/08/22 Range/Units 18:42 16:28 12:47 WBC 20.01 H RBC 3.54 L Hgb 12.4 L Hct 37.9 L MCV 107.1 H D MCH 35.0 H MCHC 32.7 RDW Std Deviation 81.7 H RDW Coeff of Lay 20.8 H Plt Count 120 L MPV 11.8 Immature Gran % (Auto) 0.8 Neut % (Auto) 82.1 Lymph % (Auto) 13.4 [place] % (Auto) 3.4 Eos % (Auto) 0.1 Baso % (Auto) 0.2 Neut # (Auto) 16.39 H Lymph # (Auto) 2.69 [place] # (Auto) 0.69 Eos # (Auto) 0.03 Baso # (Auto) 0.05 Immature Gran # (Auto) 0.16 H Absolute Nucleated RBC Nucleated RBC % (auto) Neutrophils % (Manual) Band Neutrophils % Lymphocytes % (Manual) Prolymphocyte % Reactive Lymphs % (Man) Monocytes % (Manual) Eosinophils % (Manual) Basophils % (Manual) Metamyelocytes % (Man) Myelocytes % (Man) Promyelocytes % (Man) Blast Cells % (Manual) Plasma Cell % (Manual) Other Cells % Nucleated RBC % Neutrophils # (Manual) Band Neutrophils # Total Absolute Neuts Lymphocytes # (Manual) Prolymphocyte # Reactive Lymphs # Total Abs Lymphocytes Monocytes # (Manual) Eosinophils # (Manual) Basophils # (Manual) Metamyelocytes # (Man) Myelocytes # (Manual) Promyelocytes # (Man) Blast Cells # (Man) Plasma Cell # (Manual) Other Cells # Nucleated RBCs # (Man) Hypersegmented Neuts Hyposegmented Neuts Hypogranular Neuts Large Granular Lymphs # Lrg Granular Lymphs Hairy Cells Smudge Cells Toxic Granulation Toxic Vacuolation Dohle Bodies Nancy Rods Platelet Estimate Hypogranular Platelets Clumped Platelets Giant Platelets Platelet Satelliting RBC Morphology Polychromasia 1+ Hypochromasia Poikilocytosis Basophilic Stippling Anisocytosis Present Microcytosis Macrocytosis Present Spherocytes Pappenheimer Bodies Sickle Cells Target Cells 1+ Tear Drop Cells 1+ Ovalocytes Stomatocytes [place] Bodies Echinocytes Acanthocytes (Spur) 1+ Rouleaux RBC Agglutinates Schistocytes Sezary Cell Sodium (136-145) mmol/L Potassium (3.5-5.1) mmol/L Chloride (98-107) mmol/L Carbon Dioxide (21-32) mmol/L Anion Gap (3-11) BUN (6-23) mg/dl Creatinine (0.6-1.4) mg/dl Est Cr Clr Drug Dosing ml/min Est GFR ( Amer) ml/min Est GFR (Non-Af Amer) ml/min BUN/Creatinine Ratio (10-20) Glucose (70-99(Fasting)) mg/dl POC Glucose 107 H (70-99) mg/dl Calcium (8.5-10.1) mg/dl Phosphorus (2.5-4.9) mg/dl Magnesium (1.7-2.4) mg/dl Total Bilirubin (0.2-1.0) mg/dl AST (13-39) U/L ALT (7-52) U/L Alkaline Phosphatase (34-104) U/L Total Protein (6.0-8.3) gm/dl Albumin (3.4-5.0) gm/dl Globulin (2.5-4.0) gm/dl Albumin/Globulin Ratio (0.9-2) Stl C. diff Tox B Gene Pending Hepatitis A IgM Ab (NON-REACTIVE) Hep Bs Antigen (NON-REACTIVE) Hep Bs Ag Confirmation Hep B Core IgM Ab (NON-REACTIVE) Hepatitis C Ab (EIA) (NON-REACTIVE) Hep C Ab Signal/Cutoff (<1.00) HIV (1&2) Ag & Ab Conf (NON-REACTIVE) Blood Parasites ID 06/08/22 06/08/22 06/08/22 Range/Units 11:43 10:06 10:06 WBC Cancelled RBC Cancelled Hgb Cancelled Hct Cancelled MCV Cancelled MCH Cancelled MCHC Cancelled RDW Std Deviation Cancelled RDW Coeff of Lay Cancelled Plt Count Cancelled MPV Cancelled Immature Gran % (Auto) Cancelled Neut % (Auto) Cancelled Lymph % (Auto) Cancelled [place] % (Auto) Cancelled Eos % (Auto) Cancelled Baso % (Auto) Cancelled Neut # (Auto) Cancelled Lymph # (Auto) Cancelled [place] # (Auto) Cancelled Eos # (Auto) Cancelled Baso # (Auto) Cancelled Immature Gran # (Auto) Cancelled Absolute Nucleated RBC Cancelled Nucleated RBC % (auto) Cancelled Neutrophils % (Manual) Cancelled Band Neutrophils % Cancelled Lymphocytes % (Manual) Cancelled Prolymphocyte % Cancelled Reactive Lymphs % (Man) Cancelled Monocytes % (Manual) Cancelled Eosinophils % (Manual) Cancelled Basophils % (Manual) Cancelled Metamyelocytes % (Man) Cancelled Myelocytes % (Man) Cancelled Promyelocytes % (Man) Cancelled Blast Cells % (Manual) Cancelled Plasma Cell % (Manual) Cancelled Other Cells % Cancelled Nucleated RBC % Cancelled Neutrophils # (Manual) Cancelled Band Neutrophils # Cancelled Total Absolute Neuts Cancelled Lymphocytes # (Manual) Cancelled Prolymphocyte # Cancelled Reactive Lymphs # Cancelled Total Abs Lymphocytes Cancelled Monocytes # (Manual) Cancelled Eosinophils # (Manual) Cancelled Basophils # (Manual) Cancelled Metamyelocytes # (Man) Cancelled Myelocytes # (Manual) Cancelled Promyelocytes # (Man) Cancelled Blast Cells # (Man) Cancelled Plasma Cell # (Manual) Cancelled Other Cells # Cancelled Nucleated RBCs # (Man) Cancelled Hypersegmented Neuts Cancelled Hyposegmented Neuts Cancelled Hypogranular Neuts Cancelled Large Granular Lymphs Cancelled # Lrg Granular Lymphs Cancelled Hairy Cells Cancelled Smudge Cells Cancelled Toxic Granulation Cancelled Toxic Vacuolation Cancelled Dohle Bodies Cancelled Nancy Rods Cancelled Platelet Estimate Cancelled Hypogranular Platelets Cancelled Clumped Platelets Cancelled Giant Platelets Cancelled Platelet Satelliting Cancelled RBC Morphology Cancelled Polychromasia Cancelled Hypochromasia Cancelled Poikilocytosis Cancelled Basophilic Stippling Cancelled Anisocytosis Cancelled Microcytosis Cancelled Macrocytosis Cancelled Spherocytes Cancelled Pappenheimer Bodies Cancelled Sickle Cells Cancelled Target Cells Cancelled Tear Drop Cells Cancelled Ovalocytes Cancelled Stomatocytes Cancelled [place] Bodies Cancelled Echinocytes Cancelled Acanthocytes (Spur) Cancelled Rouleaux Cancelled RBC Agglutinates Cancelled Schistocytes Cancelled Sezary Cell Cancelled Sodium 144 (136-145) mmol/L Potassium 3.3 L (3.5-5.1) mmol/L Chloride 109 H (98-107) mmol/L Carbon Dioxide 26 (21-32) mmol/L Anion Gap 9 (3-11) BUN 10 (6-23) mg/dl Creatinine 0.63 (0.6-1.4) mg/dl Est Cr Clr Drug Dosing 82.5 ml/min Est GFR ( Amer) 130.4 ml/min Est GFR (Non-Af Amer) 112.5 ml/min BUN/Creatinine Ratio 15.9 (10-20) Glucose 158 H (70-99(Fasting)) mg/dl POC Glucose 208 H (70-99) mg/dl Calcium 7.9 L (8.5-10.1) mg/dl Phosphorus 1.4 L* (2.5-4.9) mg/dl Magnesium 1.8 (1.7-2.4) mg/dl Total Bilirubin 2.2 H (0.2-1.0) mg/dl AST 20 (13-39) U/L ALT 25 (7-52) U/L Alkaline Phosphatase 52 (34-104) U/L Total Protein 4.7 L (6.0-8.3) gm/dl Albumin 3.1 L (3.4-5.0) gm/dl Globulin 1.6 L (2.5-4.0) gm/dl Albumin/Globulin Ratio 1.9 (0.9-2) Stl C. diff Tox B Gene Hepatitis A IgM Ab (NON-REACTIVE) Hep Bs Antigen (NON-REACTIVE) Hep Bs Ag Confirmation Hep B Core IgM Ab (NON-REACTIVE) Hepatitis C Ab (EIA) (NON-REACTIVE) Hep C Ab Signal/Cutoff (<1.00) HIV (1&2) Ag & Ab Conf (NON-REACTIVE) Blood Parasites ID Cancelled 06/08/22 06/07/22 06/07/22 Range/Units 07:44 20:13 11:25 WBC RBC Hgb Hct MCV MCH MCHC RDW Std Deviation RDW Coeff of Lay Plt Count MPV Immature Gran % (Auto) Neut % (Auto) Lymph % (Auto) [place] % (Auto) Eos % (Auto) Baso % (Auto) Neut # (Auto) Lymph # (Auto) [place] # (Auto) Eos # (Auto) Baso # (Auto) Immature Gran # (Auto) Absolute Nucleated RBC Nucleated RBC % (auto) Neutrophils % (Manual) Band Neutrophils % Lymphocytes % (Manual) Prolymphocyte % Reactive Lymphs % (Man) Monocytes % (Manual) Eosinophils % (Manual) Basophils % (Manual) Metamyelocytes % (Man) Myelocytes % (Man) Promyelocytes % (Man) Blast Cells % (Manual) Plasma Cell % (Manual) Other Cells % Nucleated RBC % Neutrophils # (Manual) Band Neutrophils # Total Absolute Neuts Lymphocytes # (Manual) Prolymphocyte # Reactive Lymphs # Total Abs Lymphocytes Monocytes # (Manual) Eosinophils # (Manual) Basophils # (Manual) Metamyelocytes # (Man) Myelocytes # (Manual) Promyelocytes # (Man) Blast Cells # (Man) Plasma Cell # (Manual) Other Cells # Nucleated RBCs # (Man) Hypersegmented Neuts Hyposegmented Neuts Hypogranular Neuts Large Granular Lymphs # Lrg Granular Lymphs Hairy Cells Smudge Cells Toxic Granulation Toxic Vacuolation Dohle Bodies Nancy Rods Platelet Estimate Hypogranular Platelets Clumped Platelets Giant Platelets Platelet Satelliting RBC Morphology Polychromasia Hypochromasia Poikilocytosis Basophilic Stippling Anisocytosis Microcytosis Macrocytosis Spherocytes Pappenheimer Bodies Sickle Cells Target Cells Tear Drop Cells Ovalocytes Stomatocytes [place] Bodies Echinocytes Acanthocytes (Spur) Rouleaux RBC Agglutinates Schistocytes Sezary Cell Sodium (136-145) mmol/L Potassium (3.5-5.1) mmol/L Chloride (98-107) mmol/L Carbon Dioxide (21-32) mmol/L Anion Gap (3-11) BUN (6-23) mg/dl Creatinine (0.6-1.4) mg/dl Est Cr Clr Drug Dosing ml/min Est GFR ( Amer) ml/min Est GFR (Non-Af Amer) ml/min BUN/Creatinine Ratio (10-20) Glucose (70-99(Fasting)) mg/dl POC Glucose 122 H 133 H (70-99) mg/dl Calcium (8.5-10.1) mg/dl Phosphorus (2.5-4.9) mg/dl Magnesium (1.7-2.4) mg/dl Total Bilirubin (0.2-1.0) mg/dl AST (13-39) U/L ALT (7-52) U/L Alkaline Phosphatase (34-104) U/L Total Protein (6.0-8.3) gm/dl Albumin (3.4-5.0) gm/dl Globulin (2.5-4.0) gm/dl Albumin/Globulin Ratio (0.9-2) Stl C. diff Tox B Gene Hepatitis A IgM Ab (NON-REACTIVE) Hep Bs Antigen (NON-REACTIVE) Hep Bs Ag Confirmation Hep B Core IgM Ab (NON-REACTIVE) Hepatitis C Ab (EIA) (NON-REACTIVE) Hep C Ab Signal/Cutoff (<1.00) HIV (1&2) Ag & Ab Conf NON-REACTIVE (NON-REACTIVE) Blood Parasites ID 06/07/22 Range/Units 11:25 WBC RBC Hgb Hct MCV MCH MCHC RDW Std Deviation RDW Coeff of Lay Plt Count MPV Immature Gran % (Auto) Neut % (Auto) Lymph % (Auto) [place] % (Auto) Eos % (Auto) Baso % (Auto) Neut # (Auto) Lymph # (Auto) [place] # (Auto) Eos # (Auto) Baso # (Auto) Immature Gran # (Auto) Absolute Nucleated RBC Nucleated RBC % (auto) Neutrophils % (Manual) Band Neutrophils % Lymphocytes % (Manual) Prolymphocyte % Reactive Lymphs % (Man) Monocytes % (Manual) Eosinophils % (Manual) Basophils % (Manual) Metamyelocytes % (Man) Myelocytes % (Man) Promyelocytes % (Man) Blast Cells % (Manual) Plasma Cell % (Manual) Other Cells % Nucleated RBC % Neutrophils # (Manual) Band Neutrophils # Total Absolute Neuts Lymphocytes # (Manual) Prolymphocyte # Reactive Lymphs # Total Abs Lymphocytes Monocytes # (Manual) Eosinophils # (Manual) Basophils # (Manual) Metamyelocytes # (Man) Myelocytes # (Manual) Promyelocytes # (Man) Blast Cells # (Man) Plasma Cell # (Manual) Other Cells # Nucleated RBCs # (Man) Hypersegmented Neuts Hyposegmented Neuts Hypogranular Neuts Large Granular Lymphs # Lrg Granular Lymphs Hairy Cells Smudge Cells Toxic Granulation Toxic Vacuolation Dohle Bodies Nancy Rods Platelet Estimate Hypogranular Platelets Clumped Platelets Giant Platelets Platelet Satelliting RBC Morphology Polychromasia Hypochromasia Poikilocytosis Basophilic Stippling Anisocytosis Microcytosis Macrocytosis Spherocytes Pappenheimer Bodies Sickle Cells Target Cells Tear Drop Cells Ovalocytes Stomatocytes [place] Bodies Echinocytes Acanthocytes (Spur) Rouleaux RBC Agglutinates Schistocytes Sezary Cell Sodium (136-145) mmol/L Potassium (3.5-5.1) mmol/L Chloride (98-107) mmol/L Carbon Dioxide (21-32) mmol/L Anion Gap (3-11) BUN (6-23) mg/dl Creatinine (0.6-1.4) mg/dl Est Cr Clr Drug Dosing ml/min Est GFR ( Amer) ml/min Est GFR (Non-Af Amer) ml/min BUN/Creatinine Ratio (10-20) Glucose (70-99(Fasting)) mg/dl POC Glucose (70-99) mg/dl Calcium (8.5-10.1) mg/dl Phosphorus (2.5-4.9) mg/dl Magnesium (1.7-2.4) mg/dl Total Bilirubin (0.2-1.0) mg/dl AST (13-39) U/L ALT (7-52) U/L Alkaline Phosphatase (34-104) U/L Total Protein (6.0-8.3) gm/dl Albumin (3.4-5.0) gm/dl Globulin (2.5-4.0) gm/dl Albumin/Globulin Ratio (0.9-2) Stl C. diff Tox B Gene Hepatitis A IgM Ab NON-REACTIVE (NON-REACTIVE) Hep Bs Antigen NON-REACTIVE (NON-REACTIVE) Hep Bs Ag Confirmation TNP Hep B Core IgM Ab NON-REACTIVE (NON-REACTIVE) Hepatitis C Ab (EIA) NON-REACTIVE (NON-REACTIVE) Hep C Ab Signal/Cutoff 0.00 (<1.00) HIV (1&2) Ag & Ab Conf (NON-REACTIVE) Blood Parasites ID PG Care Time/CCT Total # of Minutes Spent Total Time Spent with Patient: Total time spent is greater than 50% in coordination of care (as documented) at patient's floor/unit and/or counseling patient: Coding Level of Care Code 42727 Subseq Hosp Care Lvl 3 Diagnoses Sepsis A41.9 Cirrhosis K74.60 Spontaneous bacterial peritonitis K65.2 Acute respiratory failure with hypoxia J96.01 Cachexia R64 Anemia D64.9 Protein calorie malnutrition E46 Hypoglycemia E16.2 Ascites R18.8 Insulin dependent diabetes mellitus E11.9; Z79.4 Hypothyroidism E03.9 Alcoholism F10.20 Urinary retention R33.9 Hypophosphatemia E83.39 TRALI (transfusion related acute lung injury) J95.84 HFrEF (heart failure with reduced ejection fraction) I50.20
[2022-06-08] MEDS: MELATONIN 3 MG TAB PO SCH (21:05)
[2022-06-09] MEDS: PIPERACILLIN/TAZOBACTAM 3.375 GM in DEXTROSE 5% 100 ML IV SCH ×3 (05:47→22:44)
[2022-06-09] MEDS: LEVOTHYROXINE SODIUM 50 MCG TABLET PO SCH (05:48)
[2022-06-09 07:17] LABS: Basophils # (auto) 0.02 K/uL (0-0.2); Basophils % (auto) 0.2 %; Eosinophils # (auto) 0.09 K/uL (0-0.50); Eosinophils % (auto) 0.8 %; Hematocrit (blood only) 29.5 % (40.1-51.0); Hemoglobin 10.2 g/dl (14.0-18.0); Immature Granulocytes # (auto) 0.08 K/uL (0.00-0.02); Immature Granulocytes % (auto) 0.7 %; Lymphocytes # (auto) 2.16 K/uL (1.2-3.4); Lymphocytes % (auto) 20.2 %; Mean Corpuscular Hemoglobin 35.5 pg (25.0-34.0); Mean Corpuscular Hgb Conc 34.6 g/dL (32.0-36.0); Mean Corpuscular Volume 102.8 fL (80.0-100.0); Mean Platelet Volume 12.4 fL (9.4-12.4); Monocytes # (auto) 0.51 K/uL (0.24-0.82); Monocytes % (auto) 4.8 %; Neutrophils # (auto) 7.85 K/uL (1.4-6.5); Neutrophils % (auto) 73.3 %; Platelet Count 121 K/uL (130-400); RDW Standard Deviation 74.4 fL (36.4-46.3); Red Blood Count 2.87 M/uL (4.63-6.08); White Blood Count 10.71 K/ul (4.8-10.8)
[2022-06-09 07:23] LABS: INR 1.7 (0.9-1.1); Prothrombin Time 17.5 Seconds (9.0-12.0)
[2022-06-09 07:39] LABS: Albumin Globulin Ratio 2.1 (0.9-2); Albumin Level 3.2 gm/dl (3.4-5.0); BUN Creatinine Ratio 16.1 (10-20); Bilirubin,Total 1.9 mg/dl (0.2-1.0); Est GFR (African American) 131.3 ml/min; Est GFR (Non-African American) 113.3 ml/min; Globulin 1.5 gm/dl (2.5-4.0); Magnesium 1.6 mg/dl (1.7-2.4); Phosphorus 2.2 mg/dl (2.5-4.9); Potassium 3.1 mmol/L (3.5-5.1); Total Protein 4.7 gm/dl (6.0-8.3)
[2022-06-09] MEDS: GABAPENTIN 300 MG CAP PO SCH ×2 (07:51→20:45)
[2022-06-09] MEDS: POTASSIUM CHLORIDE CRTAB 20 MEQ TABCR PO SCH ×3 (07:51→20:44)
[2022-06-09] MEDS: FUROSEMIDE 40 MG/4 ML VIAL IV SCH ×2 (07:51→16:27)
[2022-06-09] MEDS: INSULIN ASPART PER UNIT SC SCH ×4 (07:57→20:45)
[2022-06-09] MEDS: THIAMINE HCL 200 MG in SODIUM CHLORIDE 0.9% 50 ML IV SCH (07:58)
[2022-06-09] MEDS: ALBUMIN 25% 100 mL 25 GM/100 ML VIAL IV SCH ×2 (07:58→16:27)
[2022-06-09] MEDS: ACETAMINOPHEN 325 MG TAB PO PRN (08:29)
[2022-06-09] MEDS ORDERED: POTASSIUM PHOS 3 MMOL/1 ML INFUSION IV STA (08:37)
[2022-06-09] MEDS ORDERED: POTASSIUM PHOSPHATE 15 MMOL in SODIUM CHLORIDE 0.9% 250 ML IV ONE (09:00)
[2022-06-09] MEDS: LOPERAMIDE HCL 2 MG CAP PO PRN (09:00)
[2022-06-09] MEDS: MAGNESIUM SULFATE / D5W 1 GM/100 ML BAG IV SCH ×2 (09:11→10:49)
--- NOTE | 2022-06-09 17:10 | Hospitalist Progress Note ---
Date of Service June 09, 2022 Assessment & Plan (1) Sepsis: Plan: - Met sepsis criteria manifested by leukocytosis, tachycardia and hypotension with elevated lactate - Source confirmed follow ultrasound-guided paracentesis on 06/04 to be SBP - Antibiotics changed from Rocephin/Zithromax initially to Zosyn on 06/04 which has broader coverage for SBP-plan for 10 days of antibiotic therapy-last day of treatment would be 06/13 -Continued with worsening leukocytosis but now is finally resolved With diarrhea after being on laxatives--> C. diff negative Remains afebrile, tachycardia and hypotension are improved with IV albumin -Peritoneal fluid culture now preliminarily negative, but he was on antibiotics for many days prior to paracentesis - Blood cultures remain no growth to date -Urinalysis not consistent with infection -Procalcitonin markedly elevated at 170 on admission and is now down to 7 -Continue to follow CBC, CMP (2) Cirrhosis: Plan: Noted on imaging, likely secondary to history of chronic alcohol use disorder Family history positive for mother who at age 55 from cirrhosis as well-she also had alcohol use disorder, however question if there is a hereditary component to these cirrhosis With massive ascites suggestive of portal hypertension, but could be secondary to unknown malignancy With severe hypoalbuminemia with albumin being undetectable upon admission, now improved with IV albumin Surprisingly, platelets are low end of normal and INR previously only mildly elevated at 1.2 but has since climbed to 1.6.. Only total bilirubin mildly elevated at 1.5 No evidence of hepatic encephalopathy Meld score now up to 13 points indicating 6% estimated 3-month mortality Continue IV albumin and IV Lasix to diurese and improve hypoxia SUSAN Estrada did discuss the case with on-call GI Dr. Patricia Dimas on 06/04 regarding the abnormal MRCP but no ERCP was recommended for the pancreatic duct stones due to patient not having active pancreatitis (3) Spontaneous bacterial peritonitis: Plan: As above, treating with Zosyn as cefotaxime not available which would be first- line choice Culture pending but negative to date Cytology negative for malignancy Ascites secondary to cirrhosis versus malignancy? (4) Acute respiratory failure with hypoxia: Plan: - with large b/l pleural effusions secondary to profound hypoalbuminemia pt is third spacing -Also suspect TRALI as he was not requiring O2 prior to blood transfusion, but required large amounts of O2 immediately after 1 unit of PRBCs infused. Chest x-ray on 06/07 with diffuse haziness-appears like ARDS, also with layering pleural effusions and atelectasis -Could also be secondary to acute HFrEF as proBNP elevated at 1999 and echocardiogram consistent with moderate to severely reduced EF with LVEF 30-35% and wall motion abnormalities - Supplemental oxygen provided-was requiring max settings of Vapotherm and now continues to wean down to 2LNC with ongoing diuresis -Goal of care as discussed with patient is to attempt diuresis with IV albumin and Lasix in order to wean oxygen requirement down so he can be discharged out of the hospital to a long term -continue Lasix 40 Mg IV twice daily along with IV albumin and monitor closely -Replace potassium and magnesium, phosphorus again today -Continue incentive spirometry (5) Cachexia: Plan: Possibly secondary to unknown malignancy, CEA elevated, possible pancreatic cancer given pancreatic lesion Also could be due to cirrhosis, CHF TSH only mildly elevated No other significant abnormalities consistent with malignancy seen on CT chest/abdomen/pelvis or on physical examination -He does not have a history of IV drug use and has not had unprotected intercourse in many years, but does report that he has been in and out of jail his whole life -With his consent, checked HIV, hepatitis-all negative -encourage po intake (6) Anemia: Plan: Macrocytic, B12 and folate normal, serum iron slightly low Peripheral smear unremarkable Chronic anemia most likely secondary to liver disease Hemoglobin had been stable throughout hospitalization but then with acute drop to 7.2 on 06/05 with no obvious bleeding noted and fecal occult negative -Transfused 1 unit PRBCs and then had significant hypoxia-second unit PRBCs not given - CTA a/p is without obvious source of bleeding -Hemoglobin remains stable and is actually now increased to 10 since transfusion -Follow CBC again in the morning (7) Protein calorie malnutrition: Plan: - Patient states he only eats 1 or 2 times a day, for the past 2 weeks DIRECTOR OF BILLING he had not been eating very much at all, however his weight loss has apparently been going ongoing for many months. Patient states he was diagnosed with pancreatic cancer in 2010 along with his diabetes, however there are no oncology notes or no note of this or any cancer for that matter in his PCP notes. It seems that his PCP was recommending chest CT, CT A/P, and UA to rule out malignancies. - CXR, CT A/P on admit without any evidence for mass or any kind of infectious inflammatory process. - Consulted RD for nutritional supplementations - started on IV Thiamine due to malnutrition and elevated lactate, liver disease - Albumin has been undetectable on labs but now improved with IV albumin - Suspicious of malignancy, MRCP obtained d/t ?findings of IPMN on RUQ ultrasound. MRCP results as above, ascites and cirrhotic liver noted. - CEA and CA 19-9 obtained. CEA elevated, CA 19-9 pending. Per primary care records, was set up for o/p screening colo 2 years ago but didn't go as he didn't have transportation. ? metastatic colon ca but no obvious masses noted via imaging and no suspicious lesions noted on imaging of liver - He is now receiving IV Albumin with his level up to 2.4 but of course this is only a temporizing measure given the cirrhosis (8) Hypoglycemia: Plan: - Presenting sugar 56 on BMP, 58 POC glucose. Patient has not been eating much over the past 2 weeks, yet intermittently taking his insulin. - D5 1/2 NSS @ 125 cc/hr ordered on admit which is now been discontinued - Held home insulin, started on SSI, regular diet, no carb ratio. -with hypoglycemia in to the 30s on evening of 06/04 - Lesion in the pancreatic tail noted on ultrasound 06/02, MRCP performed, evidence of chronic pancreatitis with stones in pancreatic duct. Spoke w/ GI, no indication for ERCP at this time. - Cirrhotic liver and ascites noted on MRCP also likely contributing -Now with some hyperglycemia-reinstitute sliding scale insulin but will make it very loose (9) Ascites: Plan: - Repeat CTA a/p 06/05, read as large ascites - MRCP confirmed cirrhotic liver - Additional doses of IV Albumin ordered (10) Insulin dependent diabetes mellitus: Plan: - Presented with blood sugar of 56, started on D5 and half-normal saline 125 cc/hour. Sugar improving, patient hungry and being fed. - Hold home insulin (Lantus 2 units twice daily with NovoLog 3 units at mealtimes) cover with SSI without carb ratio. - A1c only 5.3% - Continue gabapentin for neuropathy. - [place] diet given hypoglycemia & severe malnutrition. (11) Hypothyroidism: Plan: - Continue levothyroxine. - TSH 5.4, free T4 1.16. - Would hold off on any adjustments in Synthroid at present as gut wall edema was likely preventing good absorption of medication (12) Alcoholism: Plan: - History of, last drink in 2019. - Evidence of cirrhosis noted on MRCP with ascites (13) Urinary retention: Plan: - Requiring bill to be placed by urology on 06/04 -Continue to maintain Bill catheter Blood pressure could not tolerate tamsulosin (14) Hypophosphatemia: Plan: Replace with IV potassium phosphorus Follow level in the morning (15) TRALI (transfusion related acute lung injury): Plan: As above, now improving respiratory status follow CXR in AM (16) HFrEF (heart failure with reduced ejection fraction): Plan: As above Diuresing Blood pressure cannot tolerate CHAVA inhibitor or metoprolol Plan Given patient's progressive decline, multiple lengthy discussions with him as w ell as his brother and [id number] at bedside that given his undetectable albumin level, now with evidence of third spacing and accumulation of ascites, pleural effusions, and persistent hypotension, severe hypoxia, his overall prognosis is poor. I told him that at this time, his options for treatment are limited and that it is very likely his condition will only decline further until he would have multisystem organ failure. Noah seemed to understand that he is dying and had a degree of acceptance. He has two brothers, one (Henri) is his oldest brother and he would like to be primarily making decisions about his care if he should become incapacitated and not able to do so for himself. He does have a son but seems that he is estranged. We discussed code status and he understands his poor prognosis and likely what would be a poor outcome if we were to attempt a full resuscitation and he has voiced his wish to be DNR/DNI. Therefore, this change has been reflected in his chart. On 06/06, Noah has goals of the following: Attempts at diuresis to improve hypoxia so that he can leave the hospital and go to a long term on hospice. If deteriorates further while in the hospital, okay to transition to comfort measures only with IV morphine and comfort medications. Palliative care provider, Dr. Liang, is on consult, greatly appreciate assistance. Dispo-referrals in place with [facility] and [facility] for placement. Pt now saying he wants to go home but this is definitely not possible as he is extremely frail, debilitated, cannot safely care for himself, and has no family or friends that can care for him 16/06 Admission and Anticipated Discharge Date Admission Date: June 01, 2022 Subjective Pt feels tired. Is weaned down to 2LNC for O2. Has not been out of bed at all. Says his stool is becoming more solid today. When discussing about going to a NH, he states that he wants to go home. But says he would need to get a place on the first floor of the house he lives in. He doesn't want to ask his brother for help. He wants me to call his neighbor across the street named Roxy, but doesn't know her last name or her phone number. Tele with NSR, rates 70-80s Review of Systems Review of Systems: All systems reviewed & are unremarkable except as noted in HPI & below Physical Exam Physical Exam: GENERAL: 51 yo chronically ill appearing markedly underweight WM who appears older than stated age. NAD. Nasal cannula in place. Cachectic LUNGS: Diminished in bases bilaterally, no wheezes or rhonchi appreciated, no crackles, unlabored breathing CARDIOVASCULAR: Regular rate and rhythm. No murmurs gallops or rubs ABDOMEN: Soft, nontender, positive mild distention, positive bowel sounds : bill catheter in place, draining clear yellow urine EXTREMITIES: Trace edema in all 4 extremities, sarcopenia diffusely NEUROLOGIC: A&O x3. Nonfocal PSYCHIATRIC: Cooperative. Appropriate mood and affect. SKIN: Warm, dry, intact. Abrasions and bruises noted on b/l upper extremities. Results & Data Results & Data ([facility]) Vital Signs (Past 12 Hours) Vital Signs Temp Pulse Pulse Resp BP Pulse Ox O2 Del Method 06/09/22 15:51 36.8 C 85 16 105/73 99 Nasal Cannula 06/09/22 14:51 89 06/09/22 11:15 36.8 C 79 16 96/66 L 97 Nasal Cannula 06/09/22 07:32 Nasal Cannula 06/09/22 07:21 36.8 C 83 16 107/75 97 Nasal Cannula 06/09/22 07:15 81 O2 Flow Rate 06/09/22 15:51 2 06/09/22 14:51 06/09/22 11:15 2 06/09/22 07:32 06/09/22 07:21 3 06/09/22 07:15 Laboratory Results 06/09/22 06/09/22 06/09/22 Range/Units 16:25 11:09 07:25 WBC (4.8-10.8) K/ul RBC (4.63-6.08) M/uL Hgb (14.0-18.0) g/dl Hct (40.1-51.0) % MCV (80.0-100.0) fL MCH (25.0-34.0) pg MCHC (32.0-36.0) g/dL RDW Std Deviation (36.4-46.3) fL RDW Coeff of Lay (11.5-14.5) % Plt Count (130-400) K/uL MPV (9.4-12.4) fL Immature Gran % (Auto) % Neut % (Auto) % Lymph % (Auto) % Pacific % (Auto) % Eos % (Auto) % Baso % (Auto) % Neut # (Auto) (1.4-6.5) K/uL Lymph # (Auto) (1.2-3.4) K/uL Pacific # (Auto) (0.24-0.82) K/uL Eos # (Auto) (0-0.50) K/uL Baso # (Auto) (0-0.2) K/uL Immature Gran # (Auto) (0.00-0.02) K/uL PT (9.0-12.0) Seconds INR (0.9-1.1) Sodium (136-145) mmol/L Potassium (3.5-5.1) mmol/L Chloride (98-107) mmol/L Carbon Dioxide (21-32) mmol/L Anion Gap (3-11) BUN (6-23) mg/dl Creatinine (0.6-1.4) mg/dl Est Cr Clr Drug Dosing ml/min Est GFR ( Amer) ml/min Est GFR (Non-Af Amer) ml/min BUN/Creatinine Ratio (10-20) Glucose (70-99(Fasting)) mg/dl POC Glucose 135 H 239 H 143 H (70-99) mg/dl Calcium (8.5-10.1) mg/dl Phosphorus (2.5-4.9) mg/dl Magnesium (1.7-2.4) mg/dl Total Bilirubin (0.2-1.0) mg/dl AST (13-39) U/L ALT (7-52) U/L Alkaline Phosphatase (34-104) U/L Total Protein (6.0-8.3) gm/dl Albumin (3.4-5.0) gm/dl Globulin (2.5-4.0) gm/dl Albumin/Globulin Ratio (0.9-2) Stl C. diff Tox B Gene (Neg) 06/09/22 06/09/22 06/09/22 Range/Units 06:39 06:39 06:39 WBC 10.71 (4.8-10.8) K/ul RBC 2.87 L (4.63-6.08) M/uL Hgb 10.2 L (14.0-18.0) g/dl Hct 29.5 L (40.1-51.0) % MCV 102.8 H (80.0-100.0) fL MCH 35.5 H (25.0-34.0) pg MCHC 34.6 (32.0-36.0) g/dL RDW Std Deviation 74.4 H (36.4-46.3) fL RDW Coeff of Lay 20.0 H (11.5-14.5) % Plt Count 121 L (130-400) K/uL MPV 12.4 (9.4-12.4) fL Immature Gran % (Auto) 0.7 % Neut % (Auto) 73.3 % Lymph % (Auto) 20.2 % Pacific % (Auto) 4.8 % Eos % (Auto) 0.8 % Baso % (Auto) 0.2 % Neut # (Auto) 7.85 H (1.4-6.5) K/uL Lymph # (Auto) 2.16 (1.2-3.4) K/uL Pacific # (Auto) 0.51 (0.24-0.82) K/uL Eos # (Auto) 0.09 (0-0.50) K/uL Baso # (Auto) 0.02 (0-0.2) K/uL Immature Gran # (Auto) 0.08 H (0.00-0.02) K/uL PT 17.5 H (9.0-12.0) Seconds INR 1.7 H (0.9-1.1) Sodium 144 (136-145) mmol/L Potassium 3.1 L (3.5-5.1) mmol/L Chloride 111 H (98-107) mmol/L Carbon Dioxide 26 (21-32) mmol/L Anion Gap 7 (3-11) BUN 10 (6-23) mg/dl Creatinine 0.62 (0.6-1.4) mg/dl Est Cr Clr Drug Dosing 77.0 ml/min Est GFR ( Amer) 131.3 ml/min Est GFR (Non-Af Amer) 113.3 ml/min BUN/Creatinine Ratio 16.1 (10-20) Glucose 136 H (70-99(Fasting)) mg/dl POC Glucose (70-99) mg/dl Calcium 8.0 L (8.5-10.1) mg/dl Phosphorus 2.2 L (2.5-4.9) mg/dl Magnesium 1.6 L (1.7-2.4) mg/dl Total Bilirubin 1.9 H (0.2-1.0) mg/dl AST 17 (13-39) U/L ALT 20 (7-52) U/L Alkaline Phosphatase 43 (34-104) U/L Total Protein 4.7 L (6.0-8.3) gm/dl Albumin 3.2 L (3.4-5.0) gm/dl Globulin 1.5 L (2.5-4.0) gm/dl Albumin/Globulin Ratio 2.1 H (0.9-2) Stl C. diff Tox B Gene (Neg) 06/08/22 06/08/22 Range/Units 19:49 18:42 WBC (4.8-10.8) K/ul RBC (4.63-6.08) M/uL Hgb (14.0-18.0) g/dl Hct (40.1-51.0) % MCV (80.0-100.0) fL MCH (25.0-34.0) pg MCHC (32.0-36.0) g/dL RDW Std Deviation (36.4-46.3) fL RDW Coeff of Lay (11.5-14.5) % Plt Count (130-400) K/uL MPV (9.4-12.4) fL Immature Gran % (Auto) % Neut % (Auto) % Lymph % (Auto) % Pacific % (Auto) % Eos % (Auto) % Baso % (Auto) % Neut # (Auto) (1.4-6.5) K/uL Lymph # (Auto) (1.2-3.4) K/uL Pacific # (Auto) (0.24-0.82) K/uL Eos # (Auto) (0-0.50) K/uL Baso # (Auto) (0-0.2) K/uL Immature Gran # (Auto) (0.00-0.02) K/uL PT (9.0-12.0) Seconds INR (0.9-1.1) Sodium (136-145) mmol/L Potassium (3.5-5.1) mmol/L Chloride (98-107) mmol/L Carbon Dioxide (21-32) mmol/L Anion Gap (3-11) BUN (6-23) mg/dl Creatinine (0.6-1.4) mg/dl Est Cr Clr Drug Dosing ml/min Est GFR ( Amer) ml/min Est GFR (Non-Af Amer) ml/min BUN/Creatinine Ratio (10-20) Glucose (70-99(Fasting)) mg/dl POC Glucose 146 H (70-99) mg/dl Calcium (8.5-10.1) mg/dl Phosphorus (2.5-4.9) mg/dl Magnesium (1.7-2.4) mg/dl Total Bilirubin (0.2-1.0) mg/dl AST (13-39) U/L ALT (7-52) U/L Alkaline Phosphatase (34-104) U/L Total Protein (6.0-8.3) gm/dl Albumin (3.4-5.0) gm/dl Globulin (2.5-4.0) gm/dl Albumin/Globulin Ratio (0.9-2) Stl C. diff Tox B Gene Negative Cdiff Gene (Neg) PG Care Time/CCT Total # of Minutes Spent Total Time Spent with Patient: Total time spent is greater than 50% in coordination of care (as documented) at patient's floor/unit and/or counseling patient: Coding Level of Care Code 37412 Subseq Hosp Care Lvl 2 Diagnoses Sepsis A41.9 Cirrhosis K74.60 Spontaneous bacterial peritonitis K65.2 Acute respiratory failure with hypoxia J96.01 Cachexia R64 Anemia D64.9 Protein calorie malnutrition E46 Hypoglycemia E16.2 Ascites R18.8 Insulin dependent diabetes mellitus E11.9; Z79.4 Hypothyroidism E03.9 Alcoholism F10.20 Urinary retention R33.9 Hypophosphatemia E83.39 TRALI (transfusion related acute lung injury) J95.84 HFrEF (heart failure with reduced ejection fraction) I50.20
[2022-06-09] MEDS: MELATONIN 3 MG TAB PO SCH (20:45)
[2022-06-10] MEDS: PIPERACILLIN/TAZOBACTAM 3.375 GM in DEXTROSE 5% 100 ML IV SCH ×3 (06:37→22:19)
[2022-06-10] MEDS: LEVOTHYROXINE SODIUM 50 MCG TABLET PO SCH (06:38)
[2022-06-10 07:32] LABS: Albumin Globulin Ratio 2.1 (0.9-2); Albumin Level 3.5 gm/dl (3.4-5.0); BUN Creatinine Ratio 15.9 (10-20); Basophils # (auto) 0.03 K/uL (0-0.2); Basophils % (auto) 0.3 %; Bilirubin,Total 1.7 mg/dl (0.2-1.0); Calcium 8.4 mg/dl (8.5-10.1); Creatinine Clr Calc Pharmacy 67.5 ml/min; Eosinophils # (auto) 0.13 K/uL (0-0.50); Eosinophils % (auto) 1.2 %; Est GFR (African American) 130.4 ml/min; Est GFR (Non-African American) 112.5 ml/min; Globulin 1.7 gm/dl (2.5-4.0); Hematocrit (blood only) 28.8 % (40.1-51.0); Hemoglobin 9.7 g/dl (14.0-18.0); Immature Granulocytes # (auto) 0.08 K/uL (0.00-0.02); Immature Granulocytes % (auto) 0.7 %; Lymphocytes # (auto) 2.31 K/uL (1.2-3.4); Macrocytosis Present; Magnesium 1.9 mg/dl (1.7-2.4); Mean Corpuscular Hemoglobin 35.7 pg (25.0-34.0); Mean Corpuscular Hgb Conc 33.7 g/dL (32.0-36.0); Mean Corpuscular Volume 105.9 fL (80.0-100.0); Mean Platelet Volume 12.4 fL (9.4-12.4); Monocytes # (auto) 0.51 K/uL (0.24-0.82); Monocytes % (auto) 4.6 %; Neutrophils # (auto) 7.92 K/uL (1.4-6.5); Neutrophils % (auto) 72.2 %; Phosphorus 2.1 mg/dl (2.5-4.9); Platelet Count 98 K/uL (130-400); Platelet Estimate Decreased (Normal); Polychromasia 1+; Potassium 3.9 mmol/L (3.5-5.1); RDW Coefficient of Variation 19.9 % (11.5-14.5); RDW Standard Deviation 77.2 fL (36.4-46.3); Red Blood Count 2.72 M/uL (4.63-6.08); Target Cells 2+; Total Protein 5.2 gm/dl (6.0-8.3); White Blood Count 10.98 K/ul (4.8-10.8)
[2022-06-10] MEDS: POTASSIUM CHLORIDE CRTAB 20 MEQ TABCR PO SCH ×3 (07:51→22:16)
[2022-06-10] MEDS: LOPERAMIDE HCL 2 MG CAP PO PRN (07:51)
[2022-06-10] MEDS: FUROSEMIDE 40 MG/4 ML VIAL IV SCH ×2 (07:51→16:08)
[2022-06-10] MEDS: GABAPENTIN 300 MG CAP PO SCH ×2 (07:52→22:15)
[2022-06-10] MEDS: THIAMINE HCL 200 MG in SODIUM CHLORIDE 0.9% 50 ML IV SCH (07:52)
[2022-06-10] MEDS: ALBUMIN 25% 100 mL 25 GM/100 ML VIAL IV SCH ×2 (07:53→16:10)
[2022-06-10] MEDS: INSULIN ASPART PER UNIT SC SCH ×4 (08:32→22:15)
[2022-06-10] MEDS ORDERED: MoRPHine SULFATE 5 MG/0.25 ML UDP PO PRN (11:13)
--- NOTE | 2022-06-10 18:45 | Hospitalist Progress Note ---
Date of Service June 10, 2022 Assessment & Plan (1) Sepsis: Plan: - Met sepsis criteria manifested by leukocytosis, tachycardia and hypotension with elevated lactate - Source confirmed follow ultrasound-guided paracentesis on 06/04 to be SBP - Antibiotics changed from Rocephin/Zithromax initially to Zosyn on 06/04 which has broader coverage for SBP-plan for 10 days of antibiotic therapy-last day of treatment would be 06/13 -Continued with worsening leukocytosis but now is finally resolved With diarrhea after being on laxatives--> C. diff negative Remains afebrile, tachycardia and hypotension are improved with IV albumin -Peritoneal fluid culture now preliminarily negative, but he was on antibiotics for many days prior to paracentesis - Blood cultures remain no growth to date -Urinalysis not consistent with infection -Procalcitonin markedly elevated at 170 on admission and is now down to 7 -Continue to follow CBC, CMP On 06/10 will tranaition lasix to PO lasix with spironolactone. will monitor that patient tolerates this change and closely monitor and titrate carefully. (2) Cirrhosis: Plan: Noted on imaging, likely secondary to history of chronic alcohol use disorder Family history positive for mother who at age 55 from cirrhosis as well-she also had alcohol use disorder, however question if there is a hereditary component to these cirrhosis With massive ascites suggestive of portal hypertension, but could be secondary to unknown malignancy With severe hypoalbuminemia with albumin being undetectable upon admission, now improved with IV albumin Surprisingly, platelets are low end of normal and INR previously only mildly elevated at 1.2 but has since climbed to 1.6.. Only total bilirubin mildly elevated at 1.5 No evidence of hepatic encephalopathy Meld score now up to 13 points indicating 6% estimated 3-month mortality Continue IV albumin and IV Lasix to diurese and improve hypoxia SUASN Estrada did discuss the case with on-call GI Dr. Patricia Dimas on 06/04 re garding the abnormal MRCP but no ERCP was recommended for the pancreatic duct stones due to patient not having active pancreatitis as stated above. added spironolactone. (3) Spontaneous bacterial peritonitis: Plan: As above, treating with Zosyn as cefotaxime not available which would be first- line choice Culture pending but negative to date Cytology negative for malignancy Ascites secondary to cirrhosis versus malignancy? (4) Acute respiratory failure with hypoxia: Plan: - with large b/l pleural effusions secondary to profound hypoalbuminemia pt is third spacing -Also suspect TRALI as he was not requiring O2 prior to blood transfusion, but required large amounts of O2 immediately after 1 unit of PRBCs infused. Chest x-ray on 06/07 with diffuse haziness-appears like ARDS, also with layering pleural effusions and atelectasis -Could also be secondary to acute HFrEF as proBNP elevated at 2000 and echocardiogram consistent with moderate to severely reduced EF with LVEF 30-35% and wall motion abnormalities - Supplemental oxygen provided-was requiring max settings of Vapotherm and now continues to wean down to 2LNC with ongoing diuresis -Goal of care as discussed with patient is to attempt diuresis with IV albumin and Lasix in order to wean oxygen requirement down so he can be discharged out of the hospital to a care home -continue Lasix 40 Mg IV twice daily along with IV albumin and monitor closely -Replace potassium and magnesium, phosphorus again today -Continue incentive spirometry (5) Cachexia: Plan: Possibly secondary to unknown malignancy, CEA elevated, possible pancreatic cancer given pancreatic lesion Also could be due to cirrhosis, CHF TSH only mildly elevated No other significant abnormalities consistent with malignancy seen on CT chest/abdomen/pelvis or on physical examination -He does not have a history of IV drug use and has not had unprotected intercourse in many years, but does report that he has been in and out of correction his whole life -With his consent, checked HIV, hepatitis-all negative -encourage po intake (6) Anemia: Plan: Macrocytic, B12 and folate normal, serum iron slightly low Peripheral smear unremarkable Chronic anemia most likely secondary to liver disease Hemoglobin had been stable throughout hospitalization but then with acute drop to 7.2 on 06/05 with no obvious bleeding noted and fecal occult negative -Transfused 1 unit PRBCs and then had significant hypoxia-second unit PRBCs not given - CTA a/p is without obvious source of bleeding -Hemoglobin remains stable and is actually now increased to 10 since transfusion -Follow CBC again in the morning (7) Protein calorie malnutrition: Plan: - Patient states he only eats 1 or 2 times a day, 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 Patient states he was diagnosed with pancreatic cancer in 2010 along with his diabetes, however there are no oncology notes or no note of this or any cancer for that matter in his PCP notes. It seems that his PCP was recommending chest CT, CT A/P, and UA to rule out malignancies. - CXR, CT A/P on admit without any evidence for mass or any kind of infectious inflammatory process. - Consulted RD for nutritional supplementations - started on IV Thiamine due to malnutrition and elevated lactate, liver disease - Albumin has been undetectable on labs but now improved with IV albumin - Suspicious of malignancy, MRCP obtained d/t ?findings of IPMN on RUQ ultrasound. MRCP results as above, ascites and cirrhotic liver noted. - CEA and CA 19-9 obtained. CEA elevated, CA 19-9 pending. Per primary care records, was set up for o/p screening colo 2 years ago but didn't go as he didn't have transportation. ? metastatic colon ca but no obvious masses noted via imaging and no suspicious lesions noted on imaging of liver - He is now receiving IV Albumin with his level up to 2.4 but of course this is only a temporizing measure given the cirrhosis (8) Hypoglycemia: Plan: - Presenting sugar 56 on BMP, 58 POC glucose. Patient has not been eating much over the past 2 weeks, yet intermittently taking his insulin. - D5 1/2 NSS @ 125 cc/hr ordered on admit which is now been discontinued - Held home insulin, started on SSI, regular diet, no carb ratio. -with hypoglycemia in to the 30s on evening of 06/04 - Lesion in the pancreatic tail noted on ultrasound 06/02, MRCP performed, evidence of chronic pancreatitis with stones in pancreatic duct. Spoke w/ GI, no indication for ERCP at this time. - Cirrhotic liver and ascites noted on MRCP also likely contributing -Now with some hyperglycemia-reinstitute sliding scale insulin but will make it very loose (9) Ascites: Plan: - Repeat CTA a/p 06/05, read as large ascites - MRCP confirmed cirrhotic liver - Additional doses of IV Albumin ordered (10) Insulin dependent diabetes mellitus: Plan: - Presented with blood sugar of 56, started on D5 and half-normal saline 125 cc/hour. Sugar improving, patient hungry and being fed. - Hold home insulin (Lantus 2 units twice daily with NovoLog 3 units at mealtimes) cover with SSI without carb ratio. - A1c only 5.3% - Continue gabapentin for neuropathy. - [place] diet given hypoglycemia & severe malnutrition. (11) Hypothyroidism: Plan: - Continue levothyroxine. - TSH 5.4, free T4 1.16. - Would hold off on any adjustments in Synthroid at present as gut wall edema was likely preventing good absorption of medication (12) Alcoholism: Plan: - History of, last drink in 2019. - Evidence of cirrhosis noted on MRCP with ascites (13) Urinary retention: Plan: - Requiring bill to be placed by urology on 06/04 -Continue to maintain Bill catheter Blood pressure could not tolerate tamsulosin (14) Hypophosphatemia: Plan: Replace with IV potassium phosphorus Follow level in the morning (15) TRALI (transfusion related acute lung injury): Plan: As above, now improving respiratory status follow CXR in AM (16) HFrEF (heart failure with reduced ejection fraction): Plan: As above Diuresing Blood pressure cannot tolerate CHAVA inhibitor or metoprolol Plan Given patient's progressive decline, multiple lengthy discussions with him as well as his brother and [id number] at bedside that given his undetectable albumin level, now with evidence of third spacing and accumulation of ascites, pleural effusions, and persistent hypotension, severe hypoxia, his overall prognosis is poor. I told him that at this time, his options for treatment are limited and that it is very likely his condition will only decline further until he would have multisystem organ failure. Noah seemed to understand that he is dying and had a degree of acceptance. He has two brothers, one (Henri) is his oldest brother and he would like to be primarily making decisions about his care if he should become incapacitated and not able to do so for himself. He does have a son but seems that he is estranged. We discussed code status and he understands his poor prognosis and likely what would be a poor outcome if we were to attempt a full resuscitation and he has voiced his wish to be DNR/DNI. Therefore, this change has been reflected in his chart. On 06/06, Noah has goals of the following: Attempts at diuresis to improve hypoxia so that he can leave the hospital and go to a care home on hospice. If deteriorates further while in the hospital, okay to transition to comfort measures only with IV morphine and comfort medications. Palliative care provider, Dr. Liang, is on consult, greatly appreciate assistance. Dispo-referrals in place with [facility] and [facility] for placement. Pt now saying he wants to go home but this is definitely not possible as he is extremely frail, debilitated, cannot safely care for himself, and has no family or friends that can care for him 16/06 Admission and Anticipated Discharge Date Admission Date: June 01, 2022 Subjective Patient reports no new symptoms. Review of Systems Review of Systems: All systems reviewed & are unremarkable except as noted in HPI & below Physical Exam Physical Exam: GENERAL: 51 yo chronically ill appearing markedly underweight WM who appears older than stated age. NAD. Nasal cannula in place. Cachectic LUNGS: Diminished in bases bilaterally, no wheezes or rhonchi appreciated, no crackles, unlabored breathing CARDIOVASCULAR: Regular rate and rhythm. No murmurs gallops or rubs ABDOMEN: Soft, nontender, positive mild distention, positive bowel sounds : bill catheter in place, draining clear yellow urine EXTREMITIES: Trace edema in all 4 extremities, sarcopenia diffusely NEUROLOGIC: A&O x3. Nonfocal PSYCHIATRIC: Cooperative. Appropriate mood and affect. SKIN: Warm, dry, intact. Abrasions and bruises noted on b/l upper extremities. Results & Data Results & Data ([facility]) Vital Signs (Past 12 Hours) Vital Signs Temp Pulse Pulse Resp BP Pulse Ox O2 Del Method 06/10/22 15:44 36.9 C 89 18 95/56 L 99 Nasal Cannula 06/10/22 15:39 90 06/10/22 11:39 36.8 C 89 18 104/71 93 Room Air 06/10/22 07:33 36.7 C 88 20 111/76 90 Room Air, Nasal Cannula 06/10/22 07:16 85 06/10/22 07:06 Nasal Cannula O2 Flow Rate 06/10/22 15:44 2 06/10/22 15:39 06/10/22 11:39 06/10/22 07:33 2 06/10/22 07:16 06/10/22 07:06 2 PG Care Time/CCT Total # of Minutes Spent Total Time Spent with Patient: Total time spent is greater than 50% in coordination of care (as documented) at patient's floor/unit and/or counseling patient: Coding Level of Care Code 45411 Subseq Hosp Care Lvl 2 Diagnoses Sepsis A41.9 Cirrhosis K74.60 Spontaneous bacterial peritonitis K65.2 Acute respiratory failure with hypoxia J96.01 Cachexia R64 Anemia D64.9 Protein calorie malnutrition E46 Hypoglycemia E16.2 Ascites R18.8 Insulin dependent diabetes mellitus E11.9; Z79.4 Hypothyroidism E03.9 Alcoholism F10.20 Urinary retention R33.9 Hypophosphatemia E83.39 TRALI (transfusion related acute lung injury) J95.84 HFrEF (heart failure with reduced ejection fraction) I50.20
[2022-06-10] MEDS: MELATONIN 3 MG TAB PO SCH (22:15)
[2022-06-10] MEDS: ACETAMINOPHEN 325 MG TAB PO PRN (22:27)
[2022-06-11] MEDS: LEVOTHYROXINE SODIUM 50 MCG TABLET PO SCH (05:40)
[2022-06-11] MEDS: PIPERACILLIN/TAZOBACTAM 3.375 GM in DEXTROSE 5% 100 ML IV SCH ×3 (05:46→22:07)
[2022-06-11 07:56] LABS: Hematocrit (blood only) 26.1 % (40.1-51.0); Hemoglobin 8.8 g/dl (14.0-18.0); Mean Corpuscular Hemoglobin 35.5 pg (25.0-34.0); Mean Corpuscular Hgb Conc 33.7 g/dL (32.0-36.0); Mean Corpuscular Volume 105.2 fL (80.0-100.0); Mean Platelet Volume 12.3 fL (9.4-12.4); Platelet Count 88 K/uL (130-400); RDW Coefficient of Variation 19.9 % (11.5-14.5); RDW Standard Deviation 76.3 fL (36.4-46.3); Red Blood Count 2.48 M/uL (4.63-6.08); White Blood Count 11.33 K/ul (4.8-10.8)
[2022-06-11 08:05] LABS: Albumin Globulin Ratio 2.3 (0.9-2); Albumin Level 3.9 gm/dl (3.4-5.0); BUN Creatinine Ratio 22.4 (10-20); Bilirubin,Total 1.6 mg/dl (0.2-1.0); Calcium 8.8 mg/dl (8.5-10.1); Creatinine Clr Calc Pharmacy 62.9 ml/min; Est GFR (African American) 127.1 ml/min; Est GFR (Non-African American) 109.7 ml/min; Globulin 1.7 gm/dl (2.5-4.0); Potassium 4.6 mmol/L (3.5-5.1); Total Protein 5.6 gm/dl (6.0-8.3)
[2022-06-11] MEDS: GABAPENTIN 300 MG CAP PO SCH ×2 (08:14→22:02)
[2022-06-11] MEDS: POTASSIUM CHLORIDE CRTAB 20 MEQ TABCR PO SCH ×3 (08:14→22:01)
[2022-06-11] MEDS: SPIRONOLACTONE 100 MG TAB PO SCH (08:15)
[2022-06-11] MEDS: FUROSEMIDE 40 MG TAB PO SCH (08:15)
[2022-06-11] MEDS: INSULIN ASPART PER UNIT SC SCH ×4 (09:22→22:07)
[2022-06-11] MEDS: THIAMINE HCL 200 MG in SODIUM CHLORIDE 0.9% 50 ML IV SCH (09:32)
[2022-06-11] MEDS: ALBUMIN 25% 100 mL 25 GM/100 ML VIAL IV SCH (09:32)
[2022-06-11] MEDS: LOPERAMIDE HCL 2 MG CAP PO PRN ×2 (12:05→22:07)
--- NOTE | 2022-06-11 20:54 | Hospitalist Progress Note ---
Date of Service June 11, 2022 Assessment & Plan (1) Sepsis: Plan: - Met sepsis criteria manifested by leukocytosis, tachycardia and hypotension with elevated lactate - Source confirmed follow ultrasound-guided paracentesis on 06/04 to be SBP - Antibiotics changed from Rocephin/Zithromax initially to Zosyn on 06/04 which has broader coverage for SBP-plan for 10 days of antibiotic therapy-last day of treatment would be 06/13 -Continued with worsening leukocytosis but now is finally resolved With diarrhea after being on laxatives--> C. diff negative Remains afebrile, tachycardia and hypotension are improved with IV albumin -Peritoneal fluid culture now preliminarily negative, but he was on antibiotics for many days prior to paracentesis - Blood cultures remain no growth to date -Urinalysis not consistent with infection -Procalcitonin markedly elevated at 170 on admission and is now down to 7 -Continue to follow CBC, CMP On 06/10 will tranaition lasix to PO lasix with spironolactone. will monitor that patient tolerates this change and closely monitor and titrate carefully. On 06/11 Will increase spironolactone and lasix in AM. will monitor function. (2) Cirrhosis: Plan: Noted on imaging, likely secondary to history of chronic alcohol use disorder Family history positive for mother who at age 55 from cirrhosis as well-she also had alcohol use disorder, however question if there is a hereditary component to these cirrhosis With massive ascites suggestive of portal hypertension, but could be secondary to unknown malignancy With severe hypoalbuminemia with albumin being undetectable upon admission, now improved with IV albumin Surprisingly, platelets are low end of normal and INR previously only mildly elevated at 1.2 but has since climbed to 1.6.. Only total bilirubin mildly elevated at 1.5 No evidence of hepatic encephalopathy Meld score now up to 13 points indicating 6% estimated 3-month mortality Continue IV albumin and IV Lasix to diurese and improve hypoxia SUSAN Estrada did discuss the case with on-call GI Dr. Patricia Dimas on 06/04 regarding the abnormal MRCP but no ERCP was recommended for the pancreatic duct stones due to patient not having active pancreatitis as stated above. added spironolactone. (3) Spontaneous bacterial peritonitis: Plan: As above, treating with Zosyn as cefotaxime not available which would be first- line choice Culture pending but negative to date Cytology negative for malignancy Ascites secondary to cirrhosis versus malignancy? (4) Acute respiratory failure with hypoxia: Plan: - with large b/l pleural effusions secondary to profound hypoalbuminemia pt is third spacing -Also suspect TRALI as he was not requiring O2 prior to blood transfusion, but required large amounts of O2 immediately after 1 unit of PRBCs infused. Chest x-ray on 06/07 with diffuse haziness-appears like ARDS, also with layering pleural effusions and atelectasis -Could also be secondary to acute HFrEF as proBNP elevated at 2000 and echocardiogram consistent with moderate to severely reduced EF with LVEF 30-35% and wall motion abnormalities - Supplemental oxygen provided-was requiring max settings of Vapotherm and now continues to wean down to 2LNC with ongoing diuresis -Goal of care as discussed with patient is to attempt diuresis with IV albumin and Lasix in order to wean oxygen requirement down so he can be discharged out of the hospital to a detention -continue Lasix 40 Mg IV twice daily along with IV albumin and monitor closely -Replace potassium and magnesium, phosphorus again today -Continue incentive spirometry (5) Cachexia: Plan: Possibly secondary to unknown malignancy, CEA elevated, possible pancreatic cancer given pancreatic lesion Also could be due to cirrhosis, CHF TSH only mildly elevated No other significant abnormalities consistent with malignancy seen on CT chest/abdomen/pelvis or on physical examination -He does not have a history of IV drug use and has not had unprotected intercourse in many years, but does report that he has been in and out of residential his whole life -With his consent, checked HIV, hepatitis-all negative -encourage po intake (6) Anemia: Plan: Macrocytic, B12 and folate normal, serum iron slightly low Peripheral smear unremarkable Chronic anemia most likely secondary to liver disease Hemoglobin had been stable throughout hospitalization but then with acute drop to 7.2 on 06/05 with no obvious bleeding noted and fecal occult negative -Transfused 1 unit PRBCs and then had significant hypoxia-second unit PRBCs not given - CTA a/p is without obvious source of bleeding -Hemoglobin remains stable and is actually now increased to 10 since transfusion -Follow CBC again in the morning (7) Protein calorie malnutrition: Plan: - Patient states he only eats 1 or 2 times a day, 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 Patient states he was diagnosed with pancreatic cancer in 2010 along with his diabetes, however there are no oncology notes or no note of this or any cancer for that matter in his PCP notes. It seems that his PCP was recommending chest CT, CT A/P, and UA to rule out malignancies. - CXR, CT A/P on admit without any evidence for mass or any kind of infectious inflammatory process. - Consulted RD for nutritional supplementations - started on IV Thiamine due to malnutrition and elevated lactate, liver disease - Albumin has been undetectable on labs but now improved with IV albumin - Suspicious of malignancy, MRCP obtained d/t ?findings of IPMN on RUQ ultrasound. MRCP results as above, ascites and cirrhotic liver noted. - CEA and CA 19-9 obtained. CEA elevated, CA 19-9 pending. Per primary care records, was set up for o/p screening colo 2 years ago but didn't go as he didn't have transportation. ? metastatic colon ca but no obvious masses noted via imaging and no suspicious lesions noted on imaging of liver - He had received IV Albumin with his level up to 2.4 but of course this is only a temporizing measure given the cirrhosis -albumin has been stopped. (8) Hypoglycemia: Plan: - Presenting sugar 56 on BMP, 58 POC glucose. Patient has not been eating much over the past 2 weeks, yet intermittently taking his insulin. - D5 1/2 NSS @ 125 cc/hr ordered on admit which is now been discontinued - Held home insulin, started on SSI, regular diet, no carb ratio. -with hypoglycemia in to the 30s on evening of 06/04 - Lesion in the pancreatic tail noted on ultrasound 06/02, MRCP performed, evidence of chronic pancreatitis with stones in pancreatic duct. Spoke w/ GI, no indication for ERCP at this time. - Cirrhotic liver and ascites noted on MRCP also likely contributing -Now with some hyperglycemia-reinstitute sliding scale insulin but will make it very loose (9) Ascites: Plan: - Repeat CTA a/p 06/05, read as large ascites - MRCP confirmed cirrhotic liver - Additional doses of IV Albumin ordered (10) Insulin dependent diabetes mellitus: Plan: - Presented with blood sugar of 56, started on D5 and half-normal saline 125 cc/hour. Sugar improving, patient hungry and being fed. - Hold home insulin (Lantus 2 units twice daily with NovoLog 3 units at mealtimes) cover with SSI without carb ratio. - A1c only 5.3% - Continue gabapentin for neuropathy. - [place] diet given hypoglycemia & severe malnutrition. (11) Hypothyroidism: Plan: - Continue levothyroxine. - TSH 5.4, free T4 1.16. - Would hold off on any adjustments in Synthroid at present as gut wall edema was likely preventing good absorption of medication (12) Alcoholism: Plan: - History of, last drink in 2019. - Evidence of cirrhosis noted on MRCP with ascites (13) Urinary retention: Plan: - Requiring bill to be placed by urology on 06/04 -Continue to maintain Bill catheter Blood pressure could not tolerate tamsulosin (14) Hypophosphatemia: Plan: Replace with IV potassium phosphorus Follow level in the morning (15) TRALI (transfusion related acute lung injury): Plan: As above, now improving respiratory status follow CXR in AM (16) HFrEF (heart failure with reduced ejection fraction): Plan: As above Diuresing Blood pressure cannot tolerate CHAVA inhibitor or metoprolol Plan Given patient's progressive decline, multiple lengthy discussions with him as well as his brother and [id number] at bedside that given his undetectable albumin level, now with evidence of third spacing and accumulation of ascites, pleural effusions, and persistent hypotension, severe hypoxia, his overall prognosis is poor. I told him that at this time, his options for treatment are limited and that it is very likely his condition will only decline further until he would have multisystem organ failure. Noah seemed to understand that he is dying and had a degree of acceptance. He has two brothers, one (Henri) is his oldest brother and he would like to be primarily making decisions about his care if he should become incapacitated and not able to do so for himself. He does perez ve a son but seems that he is estranged. We discussed code status and he understands his poor prognosis and likely what would be a poor outcome if we were to attempt a full resuscitation and he has voiced his wish to be DNR/DNI. Therefore, this change has been reflected in his chart. On 06/06, Noah has goals of the following: Attempts at diuresis to improve hypoxia so that he can leave the hospital and go to a detention on hospice. If deteriorates further while in the hospital, okay to transition to comfort measures only with IV morphine and comfort medications. Palliative care provider, Dr. Liang, is on consult, greatly appreciate assistance. Dispo-referrals in place with [facility] and [facility] for placement. Pt now saying he wants to go home but this is definitely not possible as he is extremely frail, debilitated, cannot safely care for himself, and has no family or friends that can care for him 16/06 Admission and Anticipated Discharge Date Admission Date: June 01, 2022 Subjective Patient reports feeling weak. Review of Systems Review of Systems: All systems reviewed & are unremarkable except as noted in HPI & below Physical Exam Physical Exam: GENERAL: 51 yo chronically ill appearing markedly underweight WM who appears older than stated age. NAD. Nasal cannula in place. Cachectic LUNGS: Diminished in bases bilaterally, no wheezes or rhonchi appreciated, no crackles, unlabored breathing CARDIOVASCULAR: Regular rate and rhythm. No murmurs gallops or rubs ABDOMEN: Soft, nontender, positive mild distention, positive bowel sounds : bill catheter in place, draining clear yellow urine EXTREMITIES: Trace edema in all 4 extremities, sarcopenia diffusely NEUROLOGIC: A&O x3. Nonfocal PSYCHIATRIC: Cooperative. Appropriate mood and affect. SKIN: Warm, dry, intact. Abrasions and bruises noted on b/l upper extremities. Results & Data Results & Data ([facility]) Vital Signs (Past 12 Hours) Vital Signs Temp Pulse Pulse Resp BP Pulse Ox O2 Flow Rate 06/11/22 18:24 36.9 C 80 16 106/73 97 2 06/11/22 15:00 81 06/11/22 15:44 36.8 C 80 18 96/64 L 96 2 06/11/22 12:03 36.9 C 77 18 106/72 97 2 PG Care Time/CCT Total # of Minutes Spent Total Time Spent with Patient: Total time spent is greater than 50% in coordination of care (as documented) at patient's floor/unit and/or counseling patient: Coding Level of Care Code 45561 Subseq Hosp Care Lvl 2 Diagnoses Sepsis A41.9 Cirrhosis K74.60 Spontaneous bacterial peritonitis K65.2 Acute respiratory failure with hypoxia J96.01 Cachexia R64 Anemia D64.9 Protein calorie malnutrition E46 Hypoglycemia E16.2 Ascites R18.8 Insulin dependent diabetes mellitus E11.9; Z79.4 Hypothyroidism E03.9 Alcoholism F10.20 Urinary retention R33.9 Hypophosphatemia E83.39 TRALI (transfusion related acute lung injury) J95.84 HFrEF (heart failure with reduced ejection fraction) I50.20
[2022-06-11] MEDS: MELATONIN 3 MG TAB PO SCH (22:00)
[2022-06-12] MEDS: PIPERACILLIN/TAZOBACTAM 3.375 GM in DEXTROSE 5% 100 ML IV SCH ×3 (06:16→21:19)
[2022-06-12] MEDS: LEVOTHYROXINE SODIUM 50 MCG TABLET PO SCH (06:17)
[2022-06-12 06:41] LABS: Hematocrit (blood only) 26.4 % (40.1-51.0); Hemoglobin 8.7 g/dl (14.0-18.0); Mean Corpuscular Hemoglobin 35.8 pg (25.0-34.0); Mean Corpuscular Volume 108.6 fL (80.0-100.0); Mean Platelet Volume 12.5 fL (9.4-12.4); Platelet Count 89 K/uL (130-400); RDW Coefficient of Variation 19.7 % (11.5-14.5); RDW Standard Deviation 78.2 fL (36.4-46.3); Red Blood Count 2.43 M/uL (4.63-6.08); White Blood Count 10.74 K/ul (4.8-10.8)
[2022-06-12 07:04] LABS: Albumin Globulin Ratio 1.8 (0.9-2); Albumin Level 3.7 gm/dl (3.4-5.0); BUN Creatinine Ratio 22.4 (10-20); Bilirubin,Total 1.3 mg/dl (0.2-1.0); C Reactive Protein 3.14 mg/dl (0-0.5); Calcium 9.2 mg/dl (8.5-10.1); Creatinine Clr Calc Pharmacy 66.2 ml/min; Est GFR (African American) 127.1 ml/min; Est GFR (Non-African American) 109.7 ml/min; Globulin 2.1 gm/dl (2.5-4.0); Potassium 5.9 mmol/L (3.5-5.1); Total Protein 5.8 gm/dl (6.0-8.3)
[2022-06-12] MEDS: POTASSIUM CHLORIDE CRTAB 20 MEQ TABCR PO SCH (08:21)
[2022-06-12] MEDS: INSULIN ASPART PER UNIT SC SCH ×4 (09:19→21:15)
[2022-06-12] MEDS: FUROSEMIDE 40 MG TAB PO SCH (09:49)
[2022-06-12] MEDS: ACETAMINOPHEN 325 MG TAB PO PRN (09:50)
[2022-06-12] MEDS: GABAPENTIN 300 MG CAP PO SCH ×2 (09:50→21:20)
[2022-06-12] MEDS: THIAMINE HCL 200 MG in SODIUM CHLORIDE 0.9% 50 ML IV SCH (10:48)
[2022-06-12] MEDS: SPIRONOLACTONE 100 MG TAB PO SCH (12:01)
[2022-06-12] MEDS ORDERED: FUROSEMIDE 40 MG/4 ML VIAL IV ONE (14:30)
[2022-06-12 18:36] LABS: BUN Creatinine Ratio 17.2 (10-20); Creatinine Clr Calc Pharmacy 47.7 ml/min; Est GFR (African American) 108.2 ml/min; Est GFR (Non-African American) 93.4 ml/min; Potassium 5.3 mmol/L (3.5-5.1)
[2022-06-12] MEDS: MELATONIN 3 MG TAB PO SCH (21:20)
--- NOTE | 2022-06-12 21:27 | Hospitalist Progress Note ---
Date of Service June 12, 2022 Assessment & Plan (1) Sepsis: Plan: - Met sepsis criteria manifested by leukocytosis, tachycardia and hypotension with elevated lactate - Source confirmed follow ultrasound-guided paracentesis on 06/04 to be SBP - Antibiotics changed from Rocephin/Zithromax initially to Zosyn on 06/04 which has broader coverage for SBP-plan for 10 days of antibiotic therapy-last day of treatment would be 06/13 -Continued with worsening leukocytosis but now is finally resolved With diarrhea after being on laxatives--> C. diff negative Remains afebrile, tachycardia and hypotension are improved with IV albumin -Peritoneal fluid culture now preliminarily negative, but he was on antibiotics for many days prior to paracentesis - Blood cultures remain no growth to date -Urinalysis not consistent with infection -Procalcitonin markedly elevated at 170 on admission and is now down to 7 -Continue to follow CBC, CMP On 06/10 will tranaition lasix to PO lasix with spironolactone. will monitor that patient tolerates this change and closely monitor and titrate carefully. On 06/11 Continue spironolactone and lasix in AM. will monitor function. On 06/12 Spironolactone was held due to iatrogenic hyperkalemia. Ws on 40 meq of potassium TID. Potassium has been discontinued. will increase spironolactone to 150 mg and lasix to 60 mg PO on 06/13 (2) Cirrhosis: Plan: Noted on imaging, likely secondary to history of chronic alcohol use disorder Family history positive for mother who at age 55 from cirrhosis as well-she also had alcohol use disorder, however question if there is a hereditary component to these cirrhosis With massive ascites suggestive of portal hypertension, but could be secondary to unknown malignancy With severe hypoalbuminemia with albumin being undetectable upon admission, now improved with IV albumin Surprisingly, platelets are low end of normal and INR previously only mildly elevated at 1.2 but has since climbed to 1.6.. Only total bilirubin mildly elevated at 1.5 No evidence of hepatic encephalopathy Meld score now up to 13 points indicating 6% estimated 3-month mortality Continue IV albumin and IV Lasix to diurese and improve hypoxia SUSAN Estrada did discuss the case with on-call GI Dr. Patricia Dimas on 06/04 regarding the abnormal MRCP but no ERCP was recommended for the pancreatic duct stones due to patient not having active pancreatitis as stated above. added spironolactone. (3) Spontaneous bacterial peritonitis: Plan: As above, treating with Zosyn as cefotaxime not available which would be first- line choice Culture pending but negative to date Cytology negative for malignancy Ascites secondary to cirrhosis versus malignancy? (4) Acute respiratory failure with hypoxia: Plan: - with large b/l pleural effusions secondary to profound hypoalbuminemia pt is third spacing -Also suspect TRALI as he was not requiring O2 prior to blood transfusion, but required large amounts of O2 immediately after 1 unit of PRBCs infused. Chest x-ray on 06/07 with diffuse haziness-appears like ARDS, also with layering pleural effusions and atelectasis -Could also be secondary to acute HFrEF as proBNP elevated at 1999 and echocardiogram consistent with moderate to severely reduced EF with LVEF 30-35% and wall motion abnormalities - Supplemental oxygen provided-was requiring max settings of Vapotherm and now continues to wean down to 2LNC with ongoing diuresis -Goal of care as discussed with patient is to attempt diuresis with IV albumin and Lasix in order to wean oxygen requirement down so he can be discharged out of the hospital to a detention -continue Lasix 40 Mg IV twice daily along with IV albumin and monitor closely -Replace potassium and magnesium, phosphorus again today -Continue incentive spirometry (5) Cachexia: Plan: Possibly secondary to unknown malignancy, CEA elevated, possible pancreatic cancer given pancreatic lesion Also could be due to cirrhosis, CHF TSH only mildly elevated No other significant abnormalities consistent with malignancy seen on CT chest/abdomen/pelvis or on physical examination -He does not have a history of IV drug use and has not had unprotected intercourse in many years, but does report that he has been in and out of half-way his whole life -With his consent, checked HIV, hepatitis-all negative -encourage po intake (6) Anemia: Plan: Macrocytic, B12 and folate normal, serum iron slightly low Peripheral smear unremarkable Chronic anemia most likely secondary to liver disease Hemoglobin had been stable throughout hospitalization but then with acute drop to 7.2 on 06/05 with no obvious bleeding noted and fecal occult negative -Transfused 1 unit PRBCs and then had significant hypoxia-second unit PRBCs not given - CTA a/p is without obvious source of bleeding -Hemoglobin slowly downtrending. -hemoglobin is 8.7 will monitor. (7) Protein calorie malnutrition: Plan: - Patient states he only eats 1 or 2 times a day, for the past 2 weeks [employer] he had not been eating very much at all, however his weight loss has apparently been going ongoing for many months. Patient states he was diagnosed with pancreatic cancer in 2010 along with his diabetes, however there are no oncology notes or no note of this or any cancer for that matter in his PCP notes. It seems that his PCP was recommending chest CT, CT A/P, and UA to rule out malignancies. - CXR, CT A/P on admit without any evidence for mass or any kind of infectious inflammatory process. - Consulted RD for nutritional supplementations - started on IV Thiamine due to malnutrition and elevated lactate, liver disease - Albumin has been undetectable on labs but now improved with IV albumin - Suspicious of malignancy, MRCP obtained d/t ?findings of IPMN on RUQ ultrasound. MRCP results as above, ascites and cirrhotic liver noted. - CEA and CA 19-9 obtained. CEA elevated, CA 19-9 pending. Per primary care records, was set up for o/p screening colo 2 years ago but didn't go as he didn't have transportation. ? metastatic colon ca but no obvious masses noted via imaging and no suspicious lesions noted on imaging of liver - He had received IV Albumin with his level up to 2.4 but of course this is only a temporizing measure given the cirrhosis -albumin has been stopped. (8) Hypoglycemia: Plan: - Presenting sugar 56 on BMP, 58 POC glucose. Patient has not been eating much over the past 2 weeks, yet intermittently taking his insulin. - D5 1/2 NSS @ 125 cc/hr ordered on admit which is now been discontinued - Held home insulin, started on SSI, regular diet, no carb ratio. -with hypoglycemia in to the 30s on evening of 06/04 - Lesion in the pancreatic tail noted on ultrasound 06/02, MRCP performed, evidence of chronic pancreatitis with stones in pancreatic duct. Spoke w/ GI, no indication for ERCP at this time. - Cirrhotic liver and ascites noted on MRCP also likely contributing -Now with some hyperglycemia-reinstitute sliding scale insulin but will make it very loose (9) Ascites: Plan: - Repeat CTA a/p 06/05, read as large ascites - MRCP confirmed cirrhotic liver - Additional doses of IV Albumin ordered (10) Insulin dependent diabetes mellitus: Plan: - Presented with blood sugar of 56, started on D5 and half-normal saline 125 cc/hour. Sugar improving, patient hungry and being fed. - Hold home insulin (Lantus 2 units twice daily with NovoLog 3 units at mealtimes) cover with SSI without carb ratio. - A1c only 5.3% - Continue gabapentin for neuropathy. - [place] diet given hypoglycemia & severe malnutrition. (11) Hypothyroidism: Plan: - Continue levothyroxine. - TSH 5.4, free T4 1.16. - Would hold off on any adjustments in Synthroid at present as gut wall edema was likely preventing good absorption of medication (12) Alcoholism: Plan: - History of, last drink in 2019. - Evidence of cirrhosis noted on MRCP with ascites (13) Urinary retention: Plan: - Requiring bill to be placed by urology on 06/04 -Continue to maintain Bill catheter Blood pressure could not tolerate tamsulosin (14) Hypophosphatemia: Plan: Replace with IV potassium phosphorus Follow level in the morning (15) TRALI (transfusion related acute lung injury): Plan: As above, now improving respiratory status follow CXR in AM (16) HFrEF (heart failure with reduced ejection fraction): Plan: As above Diuresing Blood pressure cannot tolerate CHAVA inhibitor or metoprolol Plan Given patient's progressive decline, multiple lengthy discussions with him as well as his brother and [id number] at bedside that given his undetectable albumin level, now with evidence of third spacing and accumulation of ascites, pleural effusions, and persistent hypotension, severe hypoxia, his overall prognosis is poor. I told him that at this time, his options for treatment are limited and that it is very likely his condition will only decline further until he would have multisystem organ failure. Noah seemed to understand that he is dying and had a degree of acceptance. He has two brothers, one (Henri) is his oldest brother and he would like to be primarily making decisions about his care if he should become incapacitated and not able to do so for himself. He does have a son but seems that he is estranged. We discussed code status and he understands his poor prognosis and likely what would be a poor outcome if we were to attempt a full resuscitation and he has voiced his wish to be DNR/DNI. Therefore, this change has been reflected in his chart. On 06/06, Noah has goals of the following: Attempts at diuresis to improve hypoxia so that he can leave the hospital and go to a detention on hospice. If deteriorates further while in the hospital, okay to transition to comfort measures only with IV morphine and comfort medications. Palliative care provider, Dr. Liang, is on consult, greatly appreciate assistan ce. Dispo-referrals in place with [facility] and [facility] for placement. Pt now saying he wants to go home but this is definitely not possible as he is extremely frail, debilitated, cannot safely care for himself, and has no family or friends that can care for him 16/06 Awaiting bed placement. Likely not until the following week. Admission and Anticipated Discharge Date Admission Date: June 01, 2022 Subjective Patient feels weak. No new complaints. Review of Systems Review of Systems: All systems reviewed & are unremarkable except as noted in HPI & below Physical Exam Physical Exam: GENERAL: 51 yo chronically ill appearing markedly underweight WM who appears older than stated age. NAD. Nasal cannula in place. Cachectic LUNGS: Diminished in bases bilaterally, no wheezes or rhonchi appreciated, no crackles, unlabored breathing CARDIOVASCULAR: Regular rate and rhythm. No murmurs gallops or rubs ABDOMEN: Soft, nontender, positive mild distention, positive bowel sounds : bill catheter in place, draining clear yellow urine EXTREMITIES: Trace edema in all 4 extremities, sarcopenia diffusely NEUROLOGIC: A&O x3. Nonfocal PSYCHIATRIC: Cooperative. Appropriate mood and affect. SKIN: Warm, dry, intact. Abrasions and bruises noted on b/l upper extremities. Results & Data Results & Data ([facility]) Vital Signs (Past 12 Hours) Vital Signs Temp Pulse Pulse Resp BP BP Pulse Ox 06/12/22 21:00 06/12/22 19:55 36.8 C 81 20 101/70 97 06/12/22 15:00 71 06/12/22 14:50 36.8 C 72 14 102/71 100 06/12/22 15:21 36.7 C 73 20 109/71 100 06/12/22 13:00 97 06/12/22 11:13 36.7 C 81 22 88/56 L 98 06/12/22 09:48 81 102/68 O2 Del Method O2 Flow Rate 06/12/22 21:00 Nasal Cannula 2 06/12/22 19:55 2 06/12/22 15:00 06/12/22 14:50 Nasal Cannula 2 06/12/22 15:21 Nasal Cannula 2 06/12/22 13:00 Nasal Cannula 2 06/12/22 11:13 Nasal Cannula 2 06/12/22 09:48 PG Care Time/CCT Total # of Minutes Spent Total Time Spent with Patient: Total time spent is greater than 50% in coordination of care (as documented) at patient's floor/unit and/or counseling patient: Coding Level of Care Code 16353 Subseq Hosp Care Lvl 2 Diagnoses Sepsis A41.9 Cirrhosis K74.60 Spontaneous bacterial peritonitis K65.2 Acute respiratory failure with hypoxia J96.01 Cachexia R64 Anemia D64.9 Protein calorie malnutrition E46 Hypoglycemia E16.2 Ascites R18.8 Insulin dependent diabetes mellitus E11.9; Z79.4 Hypothyroidism E03.9 Alcoholism F10.20 Urinary retention R33.9 Hypophosphatemia E83.39 TRALI (transfusion related acute lung injury) J95.84 HFrEF (heart failure with reduced ejection fraction) I50.20
[2022-06-13] MEDS: PIPERACILLIN/TAZOBACTAM 3.375 GM in DEXTROSE 5% 100 ML IV SCH ×3 (05:32→21:51)
[2022-06-13] MEDS: LEVOTHYROXINE SODIUM 50 MCG TABLET PO SCH (05:32)
[2022-06-13 06:46] LABS: Hemoglobin 9.4 g/dl (14.0-18.0); Mean Corpuscular Hemoglobin 36.4 pg (25.0-34.0); Mean Corpuscular Hgb Conc 33.6 g/dL (32.0-36.0); Mean Corpuscular Volume 108.5 fL (80.0-100.0); Mean Platelet Volume 12.4 fL (9.4-12.4); Platelet Count 101 K/uL (130-400); RDW Coefficient of Variation 19.2 % (11.5-14.5); RDW Standard Deviation 75.5 fL (36.4-46.3); Red Blood Count 2.58 M/uL (4.63-6.08); White Blood Count 10.55 K/ul (4.8-10.8)
[2022-06-13 07:09] LABS: BUN Creatinine Ratio 21.4 (10-20); Creatinine Clr Calc Pharmacy 51.1 ml/min; Est GFR (African American) 115.9 ml/min; Potassium 4.4 mmol/L (3.5-5.1)
[2022-06-13] MEDS: ACETAMINOPHEN 325 MG TAB PO PRN (08:10)
[2022-06-13] MEDS: INSULIN ASPART PER UNIT SC SCH ×4 (09:05→20:58)
[2022-06-13] MEDS: GABAPENTIN 300 MG CAP PO SCH ×2 (09:17→21:40)
[2022-06-13] MEDS: THIAMINE HCL 200 MG in SODIUM CHLORIDE 0.9% 50 ML IV SCH (10:39)
--- NOTE | 2022-06-13 11:30 | Hospitalist Progress Note ---
Date of Service June 13, 2022 Assessment & Plan (1) Sepsis: Plan: Sepsis 2/2 suspected SBP, improved - Met sepsis criteria manifested by leukocytosis, tachycardia and hypotension with elevated lactate - Source confirmed follow ultrasound-guided paracentesis on 06/04 to be SBP - Antibiotics changed from Rocephin/Zithromax initially to Zosyn on 06/04 which has broader coverage for SBP-plan for 10 days of antibiotic therapy-last day of treatment 06/13 - luekocytosis resolved - Diarrhea --> c diff negative. - Hypotension ipmroved with albumin -Peritoneal fluid culture now preliminarily negative, but he was on antibiotics for many days prior to paracentesis - Blood cultures remain no growth to date -Urinalysis not consistent with infection -Procalcitonin markedly elevated at 170 rapidly downtrending now ~1 -Continue to follow CBC, CMP - [place] held 06/12 for hyperkalemia. [place] 150/lasix 60 06/13 resumed. Potassium supplement discontinued. K / (2) Cirrhosis: Plan: Noted on imaging, likely secondary to history of chronic alcohol use disorder Family history positive for mother who at age 55 from cirrhosis as well-she also had alcohol use disorder, however question if there is a hereditary component to these cirrhosis With massive ascites suggestive of portal hypertension, but could be secondary to unknown malignancy Synthetic dysfunction an dhyperbilirubinemia present No evidence of hepatic encephalopathy Meld score now up to 13 points indicating 6% estimated 3-month mortality May use IV albumin and IV Lasix to diurese and improve hypoxia SUSAN Estrada did discuss the case with on-call GI Dr. Patricia Dimas on 06/04 regarding the abnormal MRCP but no ERCP was recommended for the pancreatic duct stones due to patient not having active pancreatitis as stated above. Spirolactone/lasix as ntoed (3) Spontaneous bacterial peritonitis: Plan: As above, treating with Zosyn as cefotaxime not available which would be first- line choice Culture pending but negative to date Cytology negative for malignancy Ascites secondary to cirrhosis versus malignancy (4) Acute respiratory failure with hypoxia: Plan: - with large b/l pleural effusions secondary to profound hypoalbuminemia pt is third spacing -Also suspect TRALI as he was not requiring O2 prior to blood transfusion, but required large amounts of O2 immediately after 1 unit of PRBCs infused. - Chest x-ray on 06/07 with diffuse haziness-appears like ARDS, also with layering pleural effusions and atelectasis -Could also be secondary to acute HFrEF as proBNP elevated at 2000 and echocardiogram consistent with moderate to severely reduced EF with LVEF 30-35% and wall motion abnormalities - Supplemental oxygen provided-was requiring max settings of Vapotherm and now continues to wean down to 2LNC with ongoing diuresis -Goal of care as discussed with patient is to attempt diuresis with IV albumin and Lasix in order to wean oxygen requirement down so he can be discharged out of the hospital to a long term. Weaned to 2L NC and is pending dispo. 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 -hemoglobin is 8.7 will monitor. (7) Protein calorie malnutrition: Plan: - Patient states he only eats 1 or 2 times a day, for the past 2 weeks [employer] he had not been eating very much at all, however his weight loss has apparently been going ongoing for many months. Patient states he was diagnosed with pancreatic cancer in 2010 along with his diabetes, however there are no oncology notes or no note of this or any cancer for that matter in his PCP notes. It seems that his PCP was recommending chest CT, CT A/P, and UA to rule out malignancies. - CXR, CT A/P on admit without any evidence for mass or any kind of infectious inflammatory process. - Consulted RD for nutritional supplementations - started on IV Thiamine due to malnutrition and elevated lactate, liver disease - Albumin has been undetectable on labs but now improved with IV albumin - Suspicious of malignancy, MRCP obtained d/t ?findings of IPMN on RUQ ultrasound. MRCP results as above, ascites and cirrhotic liver noted. - CEA and CA 19-9 obtained. CEA elevated, CA 19-9 pending. Per primary care records, was set up for o/p screening colo 2 years ago but didn't go as he didn't have transportation. ? metastatic colon ca but no obvious masses noted via imaging and no suspicious lesions noted on imaging of liver - He had received IV Albumin with his level up to 3.7 as a temporizing measure. Albumin stopped. (8) Hypoglycemia: Plan: - Presenting sugar 56 on BMP, 58 POC glucose. Patient has not been eating much over the past 2 weeks, yet intermittently taking his insulin. - D5 1/2 NSS @ 125 cc/hr ordered on admit which is now been discontinued - Held home insulin, started on SSI, regular diet, no carb ratio. -with hypoglycemia in to the 30s on evening of 06/04 - Lesion in the pancreatic tail noted on ultrasound 06/02, MRCP performed, evidence of chronic pancreatitis with stones in pancreatic duct. Spoke w/ GI, no indication for ERCP at this time. - Cirrhotic liver and ascites noted on MRCP also likely contributing (9) Ascites: Plan: - Repeat CTA a/p 06/05, read as large ascites - MRCP confirmed cirrhotic liver - Albumin as noted, has since been d/david (10) Insulin dependent diabetes mellitus: Plan: - Presented with blood sugar of 56, started on D5 and half-normal saline 125 cc/hour. Sugar improving, patient hungry and being fed. - Hold home insulin (Lantus 2 units twice daily with NovoLog 3 units at mealtimes) cover with SSI without carb ratio. - A1c only 5.3% - Continue gabapentin for neuropathy. - [place] diet given hypoglycemia & severe malnutrition. (11) Hypothyroidism: Plan: - Continue levothyroxine. - TSH 5.4, free T4 1.16. - Would hold off on any adjustments in Synthroid at present as gut wall edema was likely preventing good absorption of medication (12) Alcoholism: Plan: - History of, last drink in 2019. - Evidence of cirrhosis noted on MRCP with ascites (13) Urinary retention: Plan: - Requiring bill to be placed by urology on 06/04 -Continue to maintain Bill catheter Blood pressure could not tolerate tamsulosin (14) Hypophosphatemia: Plan: Replace with IV potassium phosphorus Follow level in the morning (15) TRALI (transfusion related acute lung injury): Plan: As above, now improving respiratory status follow CXR in AM (16) HFrEF (heart failure with reduced ejection fraction): Plan: As above Diuresing Blood pressure cannot tolerate CHAVA inhibitor or metoprolol Plan Given patient's progressive decline, multiple lengthy discussions with him as well as his brother and [id number] at bedside that given his undetectable albumin level, now with evidence of third spacing and accumulation of ascites, pleural effusions, and persistent hypotension, severe hypoxia, his overall prognosis is poor. I told him that at this time, his options for treatment are limited and that it is very likely his condition will only decline further until he would have multisystem organ failure. Noah seemed to understand that he is dying and had a degree of acceptance. He has two brothers, one (Henri) is his oldest brother and he would like to be primarily making decisions about his care if he should become incapacitated and not able to do so for himself. He does have a son but seems that he is estranged. We discussed code status and he understands his poor prognosis and likely what would be a poor outcome if we were to attempt a full resuscitation and he has voiced his wish to be DNR/DNI. Therefore, this change has been reflected in his chart. As of 06/06: Noah has goals of the following: Attempts at diuresis to improve hypoxia so that he can leave the hospital and go to a long term on hospice. If deteriorates further while in the hospital, okay to transition to comfort measures only with IV morphine and comfort medications. Palliative care provider, Dr. Liang, is on consult, greatly appreciate assist dwain. Dispo-referrals in place with [facility] and [facility] for placement. Pt now saying he wants to go home but this is definitely not possible as he is extremely frail, debilitated, cannot safely care for himself, and has no family or friends that can care for him 16/06. Awaiting bed placement. Likely not until the following week. Admission and Anticipated Discharge Date Admission Date: June 01, 2022 Subjective Weak. Denies new sx. No abdominal pain. Aware awaiting palcement, no questions or changes today Review of Systems Review of Systems: All systems reviewed & are unremarkable except as noted in Subjective Physical Exam Physical Exam: General: A&O. Cachechtic. HEENT: Atraumatic, normocephalic. Pulm: Diminished. No wheezes/rales. Symmetrical chest rise. No increased work of breathing. No respiratory distress. Cardiac: RRR, -mrg. Radial pulses intact and symmetrical. Abdominal: Nontender, nondistended, soft. BS present Ext: Pretip edema bilat. Sensation to soft touch intact in hands and feet. Results & Data Results & Data ([facility]) Vital Signs (Past 12 Hours) Vital Signs Temp Pulse Resp BP Pulse Ox O2 Del Method O2 Flow Rate 06/13/22 11:00 36.8 C 71 22 92/60 L 97 Nasal Cannula 2 06/13/22 07:41 37.1 C 74 20 102/68 99 Nasal Cannula 2 06/13/22 04:24 36.9 C 80 20 105/73 99 Nasal Cannula 2 PG Care Time/CCT Total # of Minutes Spent Total Time Spent with Patient: Total time spent is greater than 50% in coordination of care (as documented) at patient's floor/unit and/or counseling patient: Coding Level of Care Code 25023 Subseq Hosp Care Lvl 2 Diagnoses Sepsis A41.9 Cirrhosis K74.60 Spontaneous bacterial peritonitis K65.2 Acute respiratory failure with hypoxia J96.01 Cachexia R64 Anemia D64.9 Protein calorie malnutrition E46 Hypoglycemia E16.2 Ascites R18.8 Insulin dependent diabetes mellitus E11.9; Z79.4 Hypothyroidism E03.9 Alcoholism F10.20 Urinary retention R33.9 Hypophosphatemia E83.39 TRALI (transfusion related acute lung injury) J95.84 HFrEF (heart failure with reduced ejection fraction) I50.20
[2022-06-13] MEDS: SPIRONOLACTONE 100 MG TAB PO SCH (11:40)
[2022-06-13] MEDS: FUROSEMIDE 40 MG TAB PO SCH (11:40)
[2022-06-13] MEDS ORDERED: PHARMACY GLYCEMIC MGMT CONSULT PRN (14:13)
[2022-06-13] MEDS ORDERED: INSULIN HUMAN REGULAR PER UNIT 3 UNITS in SYRINGE 2.97 ML IV ONE (14:40)
[2022-06-13] MEDS: MELATONIN 3 MG TAB PO SCH (21:40)
[2022-06-14] MEDS: PIPERACILLIN/TAZOBACTAM 3.375 GM in DEXTROSE 5% 100 ML IV SCH (06:20)
[2022-06-14] MEDS: GABAPENTIN 300 MG CAP PO SCH ×2 (06:21→20:38)
[2022-06-14] MEDS: LEVOTHYROXINE SODIUM 50 MCG TABLET PO SCH (06:21)
--- NOTE | 2022-06-14 08:19 | Pharmacy Report ---
Pharmacy Glycemic Short Note 2 - Date of Service June 14, 2022 - Glycemic Short BSG Results (Last 24 hours): 06/13/22 06/13/22 06/13/22 11:29 11:31 13:35 POC Glucose 322 H* 324 H* 408 H* 06/13/22 06/13/22 06/13/22 13:36 15:41 16:45 POC Glucose 376 H* 198 H 114 H 06/13/22 06/13/22 06/14/22 20:37 23:25 01:14 POC Glucose 77 93 97 06/14/22 07:37 POC Glucose 127 H OUTPATIENT ANTIDIABETIC REGIMEN: * Lantus 2 units SC BID * Novolog 3 units SC TIDM HbA1c 5.3% (06/02/22) ASSESSMENT: * DF is a 51 year old male admitted to [facility] on 06/01/22 for evaluation following a wellness check from EMS * Patient reported feeling generally weak with ongoing chills and dry cough, hypoglycemia in ED * Patient with very low body weight (33 kg) and profound hypoalbuminemia (w/ anasarca, ascites, and pleural effusions) * Concern for possible metastatic disease of currently unknown origin * Pharmacy consulted for glycemic management on afternoon of 06/13/22 due to BSG > 300 mg/dL * BSGs improved to 114 mg/dL after 3 unit IV regular insulin bolus * BSGs have been labile during admission and given patient's fragile condition, will be very conservative with adjustments PLAN FOR INPATIENT GLYCEMIC CONTROL: * Basal insulin * hold * Bolus insulin * NovoLog per scale ACHS or Q6hrs while NPO * Goal Range: Low 100 mg/dL - High 160 mg/dL * Correction Factor: 30 mg/dL/unit * Nutritional / Prandial insulin per carb ratio of 1 unit per 15 grams CHO consumed
[2022-06-14] MEDS: FUROSEMIDE 40 MG TAB PO SCH (08:34)
[2022-06-14] MEDS: SPIRONOLACTONE 100 MG TAB PO SCH (08:36)
[2022-06-14] MEDS: INSULIN ASPART PER UNIT SC SCH ×4 (09:01→20:36)
[2022-06-14] MEDS: ACETAMINOPHEN 325 MG TAB PO PRN (12:18)
--- NOTE | 2022-06-14 12:48 | Hospitalist Progress Note ---
Date of Service June 14, 2022 Assessment & Plan (1) Sepsis: Plan: Goals: Given patient's progressive decline, multiple lengthy discussions with him as well as his brother and [id number] at bedside that given his undetectable albumin level, now with evidence of third spacing and accumulation of ascites, pleural effusions, and persistent hypotension, severe hypoxia, his overall prognosis is poor. I told him that at this time, his options for treatment are limited and that it is very likely his condition will only decline further until he would have multisystem organ failure. Noah seemed to understand that he is dying and had a degree of acceptance. He has two brothers, one (Henri) is his oldest brother and he would like to be primarily making decisions about his care if he should become incapacitated and not able to do so for himself. He does have a son but seems that he is estranged. We discussed code status and he understands his poor prognosis and likely what would be a poor outcome if we were to attempt a full resuscitation and he has voiced his wish to be DNR/DNI. Therefore, this change has been reflected in his chart. As of 06/06: Noah has goals of the following: Attempts at diuresis to improve hypoxia so that he can leave the hospital and go to a shelter on hospice. If deteriorates further while in the hospital, okay to transition to comfort measures only with IV morphine and comfort medications. Palliative care provider, Dr. Liang, is on consult, greatly appreciate assistance. Dispo-referrals in place with [facility] and [facility] for placement. Pt now saying he wants to go home but this is definitely not possible as he is extremely frail, debilitated, cannot safely care for himself, and has no family or friends that can care for him 16/06. - Awaiting placement. Updated from today, no beds available until next week. Placement pending Sepsis 2/2 suspected SBP, improved - Met sepsis criteria manifested by leukocytosis, tachycardia and hypotension with elevated lactate - Source confirmed follow ultrasound-guided paracentesis on 06/04 to be SBP - Antibiotics changed from Rocephin/Zithromax initially to Zosyn on 06/04 which has broader coverage for SBP-plan for 10 days of antibiotic therapy-last day of treatment 06/13, discontinued. - leukocytosis resolved - Diarrhea --> c diff negative. - Hypotension improved with albumin -Peritoneal fluid culture negative, but he was on antibiotics for many days prior to paracentesis - Blood cultures ng@5 days, final -Urinalysis not consistent with infection -Procalcitonin markedly elevated at 170 rapidly downtrended -Continue to follow CBC, CMP - Amado held 06/12 for hyperkalemia. Amado 150/lasix 60 06/13 resumed. Potassium supplement discontinued. K wnl 06/13, labs QoD (2) Cirrhosis: Plan: -Noted on imaging, likely secondary to history of chronic alcohol use disorder -Family history positive for mother who at age 55 from cirrhosis as well-she also had alcohol use disorder, however question if there is a hereditary component to these cirrhosis- With massive ascites suggestive of portal hypertension, but could be secondary to unknown malignancy -Synthetic dysfunction and hyperbilirubinemia present -No evidence of hepatic encephalopathy -Meld score now up to 13 points indicating 6% estimated 3-month mortality -May use IV albumin and IV Lasix to diurese and improve hypoxia -SUSAN Estrada did discuss the case with on-call GI Dr. Patricia Dimas on 06/04 regarding the abnormal MRCP but no ERCP was recommended for the pancreatic duct stones due to patient not having active pancreatitis as stated above. - Spirolactone/lasix as ntoed (3) Spontaneous bacterial peritonitis: Plan: -As above, treating with Zosyn as cefotaxime not available which would be first- line choice -Culture neg -Cytology negative for malignancy -Ascites secondary to cirrhosis versus malignancy (4) Acute respiratory failure with hypoxia: Plan: - with large b/l pleural effusions secondary to profound hypoalbuminemia pt is third spacing -Also suspect TRALI as he was not requiring O2 prior to blood transfusion, but required large amounts of O2 immediately after 1 unit of PRBCs infused. - Chest x-ray on 06/07 with diffuse haziness-appears like ARDS, also with layering pleural effusions and atelectasis -Could also be secondary to acute HFrEF as proBNP elevated at 2000 and echocardiogram consistent with moderate to severely reduced EF with LVEF 30-35% and wall motion abnormalities - Supplemental oxygen provided-was requiring max settings of Vapotherm and now continues to wean down to 2LNC with ongoing diuresis -Goal of care as discussed with patient is to attempt diuresis with IV albumin and Lasix in order to wean oxygen requirement down so he can be discharged out of the hospital to a shelter. Weaned to 2L NC and is pending dispo. -continue Lasix 40 Mg IV twice daily along with IV albumin PRN and monitor closely -Continue incentive spirometry (5) Cachexia: Plan: Possibly secondary to unknown malignancy, CEA elevated, possible pancreatic cancer given pancreatic lesion Also could be due to cirrhosis, CHF TSH only mildly elevated No other significant abnormalities consistent with malignancy seen on CT chest/abdomen/pelvis or on physical examination -hx of IV drug use and has not had unprotected intercourse in many years, but d oes report that he has been in and out of usp his whole life -With his consent, checked HIV, hepatitis-all negative -encourage po intake (6) Anemia: Plan: -Macrocytic, B12 and folate normal, serum iron slightly low -Peripheral smear unremarkable -Chronic anemia most likely secondary to liver disease -Hemoglobin had been stable throughout hospitalization but then with acute drop to 7.2 on 06/05 with no obvious bleeding noted and fecal occult negative -Transfused 1 unit PRBCs and then had significant hypoxia-second unit PRBCs not given - CTA a/p is without obvious source of bleeding - Trend (7) Protein calorie malnutrition: Plan: - Patient states he only eats 1 or 2 times a day, 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 Patient states he was diagnosed with pancreatic cancer in 2010 along with his diabetes, however there are no oncology notes or no note of this or any cancer for that matter in his PCP notes. It seems that his PCP was recommending chest CT, CT A/P, and UA to rule out malignancies. - CXR, CT A/P on admit without any evidence for mass or any kind of infectious inflammatory process. - Consulted RD for nutritional supplementations - started on IV Thiamine due to malnutrition and elevated lactate, liver disease - Albumin has been undetectable on labs but now improved with IV albumin - Suspicious of malignancy, MRCP obtained d/t ?findings of IPMN on RUQ ultrasound. MRCP results as above, ascites and cirrhotic liver noted. - CEA and CA 19-9 obtained. CEA elevated, CA 19-9 pending. Per primary care records, was set up for o/p screening colo 2 years ago but didn't go as he didn't have transportation. ? metastatic colon ca but no obvious masses noted via imaging and no suspicious lesions noted on imaging of liver - He had received IV Albumin with his level up to 3.7 as a temporizing measure. Albumin stopped. (8) Hypoglycemia: Plan: - Presenting sugar 56 on BMP, 58 POC glucose. Patient has not been eating much over the past 2 weeks, yet intermittently taking his insulin. - D5 1/2 NSS @ 125 cc/hr ordered on admit which is now been discontinued - Held home insulin, started on SSI, regular diet, no carb ratio. -with hypoglycemia in to the 30s on evening of 06/04 - Lesion in the pancreatic tail noted on ultrasound 06/02, MRCP performed, evidence of chronic pancreatitis with stones in pancreatic duct. Spoke w/ GI, no indication for ERCP at this time. - Cirrhotic liver and ascites noted on MRCP also likely contributing (9) Ascites: Plan: - Repeat CTA a/p 06/05, read as large ascites - MRCP confirmed cirrhotic liver - Albumin as noted, has since been d/david (10) Insulin dependent diabetes mellitus: Plan: - Presented with blood sugar of 56, started on D5 and half-normal saline 125 cc/hour. Sugar improving, patient hungry and being fed. - Hold home insulin (Lantus 2 units twice daily with NovoLog 3 units at mealtimes) cover with SSI without carb ratio. - A1c only 5.3% - Continue gabapentin for neuropathy. - [place] diet given hypoglycemia & severe malnutrition. (11) Hypothyroidism: Plan: - Continue levothyroxine. - TSH 5.4, free T4 1.16. - Would hold off on any adjustments in Synthroid at present likely got while edema was preventing absorption of Synthroid (12) Alcoholism: Plan: - History of, last drink in 2019. - Evidence of cirrhosis noted on MRCP with ascites (13) Urinary retention: Plan: - Requiring bill to be placed by urology on 06/04 -Continue to maintain Bill catheter Blood pressure could not tolerate tamsulosin (14) Hypophosphatemia: Plan: Replace with IV potassium phosphorus Follow level in the morning (15) TRALI (transfusion related acute lung injury): Plan: As above, now improving respiratory status follow CXR in AM (16) HFrEF (heart failure with reduced ejection fraction): Plan: As above Diuresing Blood pressure cannot tolerate CHAVA inhibitor or metoprolol Admission and Anticipated Discharge Date Admission Date: June 01, 2022 Subjective Sleeping comfortably, prefers to sleep with head under blanket. Denies any new symptoms. Aware awaiting placement. No changes/acute concerns this morning Review of Systems Review of Systems: All systems reviewed & are unremarkable except as noted in Subjective Physical Exam Physical Exam: General: A&O. Cachechtic. HEENT: Atraumatic, normocephalic. Pulm: Symmetrical chest rise. No increased work of breathing. No respiratory distress. Cardiac: R Radial pulses intact, Regular Ext: Pretib edema bilat. Sensation to soft touch intact in hands and feet. Results & Data Results & Data ([facility]) Vital Signs (Past 12 Hours) Vital Signs Temp Pulse Pulse Resp BP Pulse Ox O2 Del Method 06/14/22 07:45 36.8 C 63 22 116/74 99 Nasal Cannula 06/14/22 07:16 67 06/14/22 03:47 36.8 C 71 19 93/62 L 99 Nasal Cannula O2 Flow Rate 06/14/22 07:45 2 06/14/22 07:16 06/14/22 03:47 2 PG Care Time/CCT Total # of Minutes Spent Total Time Spent with Patient: Total time spent is greater than 50% in coordination of care (as documented) at patient's floor/unit and/or counseling patient: Coding Level of Care Code 24022 Subseq Hosp Care Lvl 1 Diagnoses Sepsis A41.9 Cirrhosis K74.60 Spontaneous bacterial peritonitis K65.2 Acute respiratory failure with hypoxia J96.01 Cachexia R64 Anemia D64.9 Protein calorie malnutrition E46 Hypoglycemia E16.2 Ascites R18.8 Insulin dependent diabetes mellitus E11.9; Z79.4 Hypothyroidism E03.9 Alcoholism F10.20 Urinary retention R33.9 Hypophosphatemia E83.39 TRALI (transfusion related acute lung injury) J95.84 HFrEF (heart failure with reduced ejection fraction) I50.20
[2022-06-14 13:30] LABS: Basophils # (auto) 0.04 K/uL (0-0.2); Basophils % (auto) 0.4 %; Eosinophils # (auto) 0.19 K/uL (0-0.50); Eosinophils % (auto) 2.1 %; Hematocrit (blood only) 25.7 % (40.1-51.0); Hemoglobin 8.6 g/dl (14.0-18.0); Immature Granulocytes # (auto) 0.05 K/uL (0.00-0.02); Immature Granulocytes % (auto) 0.6 %; Lymphocytes # (auto) 1.47 K/uL (1.2-3.4); Lymphocytes % (auto) 16.4 %; Mean Corpuscular Hemoglobin 36.1 pg (25.0-34.0); Mean Corpuscular Hgb Conc 33.5 g/dL (32.0-36.0); Monocytes # (auto) 0.31 K/uL (0.24-0.82); Monocytes % (auto) 3.4 %; Neutrophils # (auto) 6.93 K/uL (1.4-6.5); Neutrophils % (auto) 77.1 %; Platelet Count 100 K/uL (130-400); RDW Coefficient of Variation 18.2 % (11.5-14.5); RDW Standard Deviation 71.3 fL (36.4-46.3); Red Blood Count 2.38 M/uL (4.63-6.08); White Blood Count 8.99 K/ul (4.8-10.8)
[2022-06-14] MEDS: THIAMINE HCL 200 MG in SODIUM CHLORIDE 0.9% 50 ML IV SCH (13:39)
[2022-06-14 13:56] LABS: Albumin Globulin Ratio 1.5 (0.9-2); Albumin Level 3.3 gm/dl (3.4-5.0); BUN Creatinine Ratio 22.6 (10-20); Bilirubin,Total 0.9 mg/dl (0.2-1.0); Calcium 8.6 mg/dl (8.5-10.1); Creatinine Clr Calc Pharmacy 47.8 ml/min; Est GFR (African American) 115.9 ml/min; Globulin 2.2 gm/dl (2.5-4.0); Potassium 3.8 mmol/L (3.5-5.1); Total Protein 5.5 gm/dl (6.0-8.3)
[2022-06-14] MEDS: MELATONIN 3 MG TAB PO SCH (20:38)
[2022-06-15] MEDS: LEVOTHYROXINE SODIUM 50 MCG TABLET PO SCH (05:37)
[2022-06-15] MEDS: INSULIN ASPART PER UNIT SC SCH ×4 (09:44→21:24)
[2022-06-15] MEDS: FUROSEMIDE 40 MG TAB PO SCH (09:46)
[2022-06-15] MEDS: SPIRONOLACTONE 100 MG TAB PO SCH (09:46)
[2022-06-15] MEDS: GABAPENTIN 300 MG CAP PO SCH ×2 (09:46→21:21)
[2022-06-15] MEDS: THIAMINE HCL 200 MG in SODIUM CHLORIDE 0.9% 50 ML IV SCH (09:46)
[2022-06-15 11:15] LABS: BUN Creatinine Ratio 20.5 (10-20); Calcium 8.6 mg/dl (8.5-10.1); Creatinine Clr Calc Pharmacy 50.5 ml/min; Est GFR (African American) 116.4 ml/min; Est GFR (Non-African American) 100.5 ml/min; Potassium 3.7 mmol/L (3.5-5.1)
[2022-06-15 11:27] LABS: Basophils # (auto) 0.04 K/uL (0-0.2); Basophils % (auto) 0.5 %; Eosinophils # (auto) 0.12 K/uL (0-0.50); Eosinophils % (auto) 1.5 %; Hematocrit (blood only) 24.9 % (40.1-51.0); Hemoglobin 8.4 g/dl (14.0-18.0); Immature Granulocytes # (auto) 0.05 K/uL (0.00-0.02); Immature Granulocytes % (auto) 0.6 %; Lymphocytes # (auto) 1.78 K/uL (1.2-3.4); Lymphocytes % (auto) 22.9 %; Macrocytosis Present; Mean Corpuscular Hemoglobin 36.4 pg (25.0-34.0); Mean Corpuscular Hgb Conc 33.7 g/dL (32.0-36.0); Mean Corpuscular Volume 107.8 fL (80.0-100.0); Mean Platelet Volume 11.4 fL (9.4-12.4); Monocytes % (auto) 2.6 %; Neutrophils # (auto) 5.59 K/uL (1.4-6.5); Neutrophils % (auto) 71.9 %; Platelet Count 117 K/uL (130-400); Platelet Estimate Normal (Normal); RDW Coefficient of Variation 18.2 % (11.5-14.5); RDW Standard Deviation 72.7 fL (36.4-46.3); Red Blood Count 2.31 M/uL (4.63-6.08); Target Cells 1+; White Blood Count 7.78 K/ul (4.8-10.8)
--- NOTE | 2022-06-15 12:31 | Hospitalist Progress Note ---
Date of Service June 15, 2022 Assessment & Plan (1) Sepsis: Plan: Goals: Given patient's progressive decline, multiple lengthy discussions with him as well as his brother and [id number] at bedside that given his undetectable albumin level, now with evidence of third spacing and accumulation of ascites, pleural effusions, and persistent hypotension, severe hypoxia, his overall prognosis is poor. I told him that at this time, his options for treatment are limited and that it is very likely his condition will only decline further until he would have multisystem organ failure. Noah seemed to understand that he is dying and had a degree of acceptance. He has two brothers, one (Henri) is his oldest brother and he would like to be primarily making decisions about his care if he should become incapacitated and not able to do so for himself. He does have a son but seems that he is estranged. We discussed code status and he understands his poor prognosis and likely what would be a poor outcome if we were to attempt a full resuscitation and he has voiced his wish to be DNR/DNI. Therefore, this change has been reflected in his chart. As of 06/06: Noah has goals of the following: Attempts at diuresis to improve hypoxia so that he can leave the hospital and go to a skilled nursing on hospice. If deteriorates further while in the hospital, okay to transition to comfort measures only with IV morphine and comfort medications. Palliative care provider, Dr. Liang, is on consult, greatly appreciate assistance. Dispo-referrals in place with [facility] and [facility] for placement. Pt now saying he wants to go home but this is definitely not possible as he is extremely frail, debilitated, cannot safely care for himself, and has no family or friends that can care for him 16/06. - Awaiting placement. Per CC, no beds available until next week. Placement pending Sepsis 2/2 suspected SBP, improved - Met sepsis criteria manifested by leukocytosis, tachycardia and hypotension with elevated lactate - Source confirmed follow ultrasound-guided paracentesis on 06/04 to be SBP - Antibiotics changed from Rocephin/Zithromax initially to Zosyn on 06/04 which has broader coverage for SBP-plan for 10 days of antibiotic therapy-last day of treatment 06/13, discontinued. - leukocytosis resolved - Diarrhea --> c diff negative. - Hypotension improved with albumin -Peritoneal fluid culture negative, but he was on antibiotics for many days prior to paracentesis - Blood cultures ng@5 days, final -Urinalysis not consistent with infection -Procalcitonin markedly elevated at 170 rapidly downtrended -Continue to follow CBC, CMP - Jose held 06/12 for hyperkalemia. [place] 150/lasix 60 06/13 resumed. Potassium supplement discontinued. K wnl 06/13, labs QoD (2) Cirrhosis: Plan: -Noted on imaging, likely secondary to history of chronic alcohol use disorder -Family history positive for mother who at age 55 from cirrhosis as well-she also had alcohol use disorder, however question if there is a hereditary component to these cirrhosis- With massive ascites suggestive of portal hypertension, but could be secondary to unknown malignancy -Synthetic dysfunction and hyperbilirubinemia present -No evidence of hepatic encephalopathy -Meld score now up to 13 points indicating 6% estimated 3-month mortality -May use IV albumin and IV Lasix to diurese and improve hypoxia -SUSAN Estrada did discuss the case with on-call GI Dr. Patricia Dimas on 06/04 regarding the abnormal MRCP but no ERCP was recommended for the pancreatic duct stones due to patient not having active pancreatitis as stated above. - Spirolactone/lasix as ntoed (3) Spontaneous bacterial peritonitis: Plan: -As above, treating with Zosyn as cefotaxime not available which would be first- line choice -Culture neg -Cytology negative for malignancy -Ascites secondary to cirrhosis versus malignancy (4) Acute respiratory failure with hypoxia: Plan: - with large b/l pleural effusions secondary to profound hypoalbuminemia pt is third spacing -Also suspect TRALI as he was not requiring O2 prior to blood transfusion, but required large amounts of O2 immediately after 1 unit of PRBCs infused. - Chest x-ray on 06/07 with diffuse haziness-appears like ARDS, also with layering pleural effusions and atelectasis -Could also be secondary to acute HFrEF as proBNP elevated at 2000 and echocardiogram consistent with moderate to severely reduced EF with LVEF 30-35% and wall motion abnormalities - Supplemental oxygen provided-was requiring max settings of Vapotherm and ndown to 2LNC with ongoing diuresis -Goal of care as discussed with patient. Diuresis with IV albumin and Lasix in order to wean oxygen requirement down so he can be discharged out of the hospital to a skilled nursing. Weaned to 2L NC and is pending dispo. -continue Lasix 40 Mg IV twice daily along with IV albumin PRN and monitor closely -Continue incentive spirometry - Cr stable 06/15 (5) Cachexia: Plan: Possibly secondary to unknown malignancy, CEA elevated, possible pancreatic cancer given pancreatic lesion Also could be due to cirrhosis, CHF TSH only mildly elevated No other significant abnormalities consistent with malignancy seen on CT chest/abdomen/pelvis or on physical examination -hx of IV drug use and has not had unprotected intercourse in many years, but does report that he has been in and out of long term his whole life -With his consent, checked HIV, hepatitis-all negative -encourage po intake (6) Anemia: Plan: -Macrocytic, B12 and folate normal, serum iron slightly low -Peripheral smear unremarkable -Chronic anemia most likely secondary to liver disease -Hemoglobin had been stable throughout hospitalization but then with acute drop to 7.2 on 06/05 with no obvious bleeding noted and fecal occult negative -Transfused 1 unit PRBCs and then had significant hypoxia-second unit PRBCs not given - CTA a/p is without obvious source of bleeding - Trend (7) Protein calorie malnutrition: Plan: - Patient states he only eats 1 or 2 times a day, 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 Patient states he was diagnosed with pancreatic cancer in 2010 along with his diabetes, however there are no oncology notes or no note of this or any cancer for that matter in his PCP notes. It seems that his PCP was recommending chest CT, CT A/P, and UA to rule out malignancies. - CXR, CT A/P on admit without any evidence for mass or any kind of infectious inflammatory process. - Consulted RD for nutritional supplementations - started on IV Thiamine due to malnutrition and elevated lactate, liver disease - Albumin has been undetectable on labs but now improved with IV albumin - Suspicious of malignancy, MRCP obtained d/t ?findings of IPMN on RUQ ultraso und. MRCP results as above, ascites and cirrhotic liver noted. - CEA and CA 19-9 obtained. CEA elevated, CA 19-9 pending. Per primary care records, was set up for o/p screening colo 2 years ago but didn't go as he didn't have transportation. ? metastatic colon ca but no obvious masses noted via imaging and no suspicious lesions noted on imaging of liver - He had received IV Albumin with his level up to 3.7 as a temporizing measure. Albumin stopped. (8) Hypoglycemia: Plan: - Presenting sugar 56 on BMP, 58 POC glucose. Patient has not been eating much over the past 2 weeks, yet intermittently taking his insulin. - D5 1/2 NSS @ 125 cc/hr ordered on admit which is now been discontinued - Held home insulin, started on SSI, regular diet, no carb ratio. -with hypoglycemia in to the 30s on evening of 06/04 - Lesion in the pancreatic tail noted on ultrasound 06/02, MRCP performed, evidence of chronic pancreatitis with stones in pancreatic duct. Spoke w/ GI, no indication for ERCP at this time. - Cirrhotic liver and ascites noted on MRCP also likely contributing (9) Ascites: Plan: - Repeat CTA a/p 06/05, read as large ascites - MRCP confirmed cirrhotic liver - Albumin as noted, has since been d/david (10) Insulin dependent diabetes mellitus: Plan: - Presented with blood sugar of 56, started on D5 and half-normal saline 125 cc/hour. Sugar improving, patient hungry and being fed. - Hold home insulin (Lantus 2 units twice daily with NovoLog 3 units at mealtimes) cover with SSI without carb ratio. - A1c only 5.3% - Continue gabapentin for neuropathy. - [place] diet given hypoglycemia & severe malnutrition. (11) Hypothyroidism: Plan: - Continue levothyroxine. - TSH 5.4, free T4 1.16. - Would hold off on any adjustments in Synthroid at present likely got while edema was preventing absorption of Synthroid (12) Alcoholism: Plan: - History of, last drink in 2019. - Evidence of cirrhosis noted on MRCP with ascites (13) Urinary retention: Plan: - Requiring bill to be placed by urology on 06/04 -Continue to maintain Bill catheter Blood pressure could not tolerate tamsulosin (14) Hypophosphatemia: Plan: Replace with IV potassium phosphorus Follow level in the morning (15) TRALI (transfusion related acute lung injury): Plan: As above, now improving respiratory status follow CXR in AM (16) HFrEF (heart failure with reduced ejection fraction): Plan: As above Blood pressure cannot tolerate CHAVA inhibitor or metoprolol Lasix as noted, Cr tolerating Admission and Anticipated Discharge Date Admission Date: June 01, 2022 Subjective Seen at bedside. Sleeping comfortably, arouses easily. No new complaints. Reports he feels okay. Is worried about his male, would like to check with CM if any services can be arranged to check this for him. Otherwise no questions or concerns. No chest pain, chest pressure. No abdominal pain, pending placement Review of Systems Review of Systems: All systems reviewed & are unremarkable except as noted in Subjective Physical Exam Physical Exam: General: A&O. Cachechtic. HEENT: Atraumatic, normocephalic. Pulm: Symmetrical chest rise. No increased work of breathing. No respiratory distress. Cardiac: R Radial pulses intact, Regular Ext: Pretib edema bilat. Sensation to soft touch intact in hands and feet. Results & Data Results & Data ([facility]) Vital Signs (Past 12 Hours) Vital Signs Temp Pulse Pulse Resp BP BP Pulse Ox 06/15/22 11:10 36.7 C 85 20 99/67 L 100 06/15/22 08:00 72 06/15/22 08:00 06/15/22 08:08 36.8 C 70 20 109/69 100 06/15/22 03:03 36.8 C 67 20 120/83 100 O2 Del Method O2 Flow Rate 06/15/22 11:10 06/15/22 08:00 06/15/22 08:00 Nasal Cannula 2 06/15/22 08:08 06/15/22 03:03 Nasal Cannula 2 PG Care Time/CCT Total # of Minutes Spent Total Time Spent with Patient: Total time spent is greater than 50% in coordination of care (as documented) at patient's floor/unit and/or counseling patient: Coding Level of Care Code 05272 Subseq Hosp Care Lvl 1 Diagnoses Sepsis A41.9 Cirrhosis K74.60 Spontaneous bacterial peritonitis K65.2 Acute respiratory failure with hypoxia J96.01 Cachexia R64 Anemia D64.9 Protein calorie malnutrition E46 Hypoglycemia E16.2 Ascites R18.8 Insulin dependent diabetes mellitus E11.9; Z79.4 Hypothyroidism E03.9 Alcoholism F10.20 Urinary retention R33.9 Hypophosphatemia E83.39 TRALI (transfusion related acute lung injury) J95.84 HFrEF (heart failure with reduced ejection fraction) I50.20
[2022-06-15] MEDS: MELATONIN 3 MG TAB PO SCH (21:22)
[2022-06-16] MEDS: ACETAMINOPHEN 325 MG TAB PO PRN (06:14)
[2022-06-16] MEDS: LEVOTHYROXINE SODIUM 50 MCG TABLET PO SCH (06:15)
[2022-06-16] MEDS: INSULIN ASPART PER UNIT SC SCH ×4 (08:30→20:28)
[2022-06-16] MEDS: THIAMINE HCL 200 MG in SODIUM CHLORIDE 0.9% 50 ML IV SCH (08:31)
[2022-06-16] MEDS: GABAPENTIN 300 MG CAP PO SCH ×2 (08:31→20:25)
[2022-06-16] MEDS: SPIRONOLACTONE 100 MG TAB PO SCH (08:31)
[2022-06-16] MEDS: FUROSEMIDE 40 MG TAB PO SCH (08:32)
--- NOTE | 2022-06-16 15:05 | Hospitalist Progress Note ---
Date of Service June 16, 2022 Assessment & Plan (1) Sepsis: Plan: Goals: Given patient's progressive decline, multiple lengthy discussions with him as well as his brother and [id number] at bedside that given his undetectable albumin level, now with evidence of third spacing and accumulation of ascites, pleural effusions, and persistent hypotension, severe hypoxia, his overall prognosis is poor. I told him that at this time, his options for treatment are limited and that it is very likely his condition will only decline further until he would have multisystem organ failure. Noah seemed to understand that he is dying and had a degree of acceptance. He has two brothers, one (Henri) is his oldest brother and he would like to be primarily making decisions about his care if he should become incapacitated and not able to do so for himself. He does have a son but seems that he is estranged. We discussed code status and he understands his poor prognosis and likely what would be a poor outcome if we were to attempt a full resuscitation and he has voiced his wish to be DNR/DNI. Therefore, this change has been reflected in his chart. As of 06/06: Noah has goals of the following: Attempts at diuresis to improve hypoxia so that he can leave the hospital and go to a intermediate on hospice. If deteriorates further while in the hospital, okay to transition to comfort measures only with IV morphine and comfort medications. Palliative care provider, Dr. Liang, is on consult, greatly appreciate assistance. Dispo-referrals in place with [facility] and [facility] for placement. Pt now saying he wants to go home but this is definitely not possible as he is extremely frail, debilitated, cannot safely care for himself, and has no family or friends that can care for him 16/06. - Awaiting placement. Per CC, no beds available until next week. Placement remains pending Sepsis 2/2 suspected SBP, improved - Met sepsis criteria manifested by leukocytosis, tachycardia and hypotension with elevated lactate - Source confirmed follow ultrasound-guided paracentesis on 06/04 to be SBP - Antibiotics changed from Rocephin/Zithromax initially to Zosyn on 06/04 which has broader coverage for SBP-plan for 10 days of antibiotic therapy-last day of treatment 06/13, discontinued. - leukocytosis resolved - Diarrhea --> c diff negative. - Hypotension improved with albumin -Peritoneal fluid culture negative, but he was on antibiotics for many days prior to paracentesis - Blood cultures ng@5 days, final -Urinalysis not consistent with infection -Procalcitonin markedly elevated at 170 rapidly downtrended -Continue to follow CBC, CMP - Jose held 06/12 for hyperkalemia. [place] 150/lasix 60 06/13 resumed. Potassium supplement discontinued. K wnl 06/13, spot labs (2) Cirrhosis: Plan: -Noted on imaging, likely secondary to history of chronic alcohol use disorder -Family history positive for mother who at age 55 from cirrhosis as well-she also had alcohol use disorder, however question if there is a hereditary component to these cirrhosis- With massive ascites suggestive of portal hypertension, but could be secondary to unknown malignancy -Synthetic dysfunction and hyperbilirubinemia present -No evidence of hepatic encephalopathy -Meld score now up to 13 points indicating 6% estimated 3-month mortality -May use IV albumin and IV Lasix to diurese and improve hypoxia -SUSAN Estrada did discuss the case with on-call GI Dr. Patricia Dimas on 06/04 regarding the abnormal MRCP but no ERCP was recommended for the pancreatic duct stones due to patient not having active pancreatitis as stated above. - Spirolactone/lasix as ntoed (3) Spontaneous bacterial peritonitis: Plan: -As above, treating with Zosyn as cefotaxime not available which would be first- line choice -Culture neg -Cytology negative for malignancy -Ascites secondary to cirrhosis versus malignancy (4) Acute respiratory failure with hypoxia: Plan: - with large b/l pleural effusions secondary to profound hypoalbuminemia pt is third spacing -Also suspect TRALI as he was not requiring O2 prior to blood transfusion, but required large amounts of O2 immediately after 1 unit of PRBCs infused. - Chest x-ray on 06/07 with diffuse haziness-appears like ARDS, also with layering pleural effusions and atelectasis -Could also be secondary to acute HFrEF as proBNP elevated at 2000 and echocardiogram consistent with moderate to severely reduced EF with LVEF 30-35% and wall motion abnormalities - Supplemental oxygen provided-was requiring max settings of Vapotherm and ndown to 2LNC with ongoing diuresis -Goal of care as discussed with patient. Diuresis with IV albumin and Lasix in order to wean oxygen requirement down so he can be discharged out of the hospital to a intermediate. Weaned to 2L NC and is pending dispo. -continue Lasix 40 Mg IV twice daily along with IV albumin PRN and monitor closely -Continue incentive spirometry - Cr stable 06/15 (5) Cachexia: Plan: Possibly secondary to unknown malignancy, CEA elevated, possible pancreatic cancer given pancreatic lesion Also could be due to cirrhosis, CHF TSH only mildly elevated No other significant abnormalities consistent with malignancy seen on CT chest/abdomen/pelvis or on physical examination -hx of IV drug use and has not had unprotected intercourse in many years, but does report that he has been in and out of [facility] his whole life -With his consent, checked HIV, hepatitis-all negative -encourage po intake (6) Anemia: Plan: -Macrocytic, B12 and folate normal, serum iron slightly low -Peripheral smear unremarkable -Chronic anemia most likely secondary to liver disease -Hemoglobin had been stable throughout hospitalization but then with acute drop to 7.2 on 06/05 with no obvious bleeding noted and fecal occult negative -Transfused 1 unit PRBCs and then had significant hypoxia-second unit PRBCs not given - CTA a/p is without obvious source of bleeding - Trend (7) Protein calorie malnutrition: Plan: - Patient states he only eats 1 or 2 times a day, for the past 2 weeks [employer] he had not been eating very much at all, however his weight loss has apparently been going ongoing for many months. Patient states he was diagnosed with pancreatic cancer in 2010 along with his diabetes, however there are no oncology notes or no note of this or any cancer for that matter in his PCP notes. It seems that his PCP was recommending chest CT, CT A/P, and UA to rule out malignancies. - CXR, CT A/P on admit without any evidence for mass or any kind of infectious inflammatory process. - Consulted RD for nutritional supplementations - started on IV Thiamine due to malnutrition and elevated lactate, liver disease - Albumin has been undetectable on labs but now improved with IV albumin - Suspicious of malignancy, MRCP obtained d/t ?findings of IPMN on RUQ ultrasound. MRCP results as above, ascites and cirrhotic liver noted. - CEA and CA 19-9 obtained. CEA elevated, CA 19-9 pending. Per primary care records, was set up for o/p screening colo 2 years ago but didn't go as he didn't have transportation. ? metastatic colon ca but no obvious masses noted via imaging and no suspicious lesions noted on imaging of liver - He had received IV Albumin with his level up to 3.7 as a temporizing measure. Albumin stopped. (8) Hypoglycemia: Plan: - Presenting sugar 56 on BMP, 58 POC glucose. Patient has not been eating much over the past 2 weeks, yet intermittently taking his insulin. - D5 1/2 NSS @ 125 cc/hr ordered on admit which is now been discontinued - Held home insulin, started on SSI, regular diet, no carb ratio. -with hypoglycemia in to the 30s on evening of 06/04 - Lesion in the pancreatic tail noted on ultrasound 06/02, MRCP performed, evidence of chronic pancreatitis with stones in pancreatic duct. Spoke w/ GI, no indication for ERCP at this time. - Cirrhotic liver and ascites noted on MRCP also likely contributing (9) Ascites: Plan: - Repeat CTA a/p 06/05, read as large ascites - MRCP confirmed cirrhotic liver - Albumin as noted, has since been d/david (10) Insulin dependent diabetes mellitus: Plan: - Presented with blood sugar of 56, started on D5 and half-normal saline 125 cc/hour. Sugar improving, patient hungry and being fed. - Hold home insulin (Lantus 2 units twice daily with NovoLog 3 units at mealtimes) cover with SSI without carb ratio. - A1c only 5.3% - Continue gabapentin for neuropathy. - [place] diet given hypoglycemia & severe malnutrition. (11) Hypothyroidism: Plan: - Continue levothyroxine. - TSH 5.4, free T4 1.16. - Would hold off on any adjustments in Synthroid at present likely got while edema was preventing absorption of Synthroid (12) Alcoholism: Plan: - History of, last drink in 2018. - Evidence of cirrhosis noted on MRCP with ascites (13) Urinary retention: Plan: - Requiring bill to be placed by urology on 06/04 -Continue to maintain Bill catheter Blood pressure could not tolerate tamsulosin (14) Hypophosphatemia: Plan: Repleted (15) TRALI (transfusion related acute lung injury): Plan: As above, now improving respiratory status follow CXR in AM (16) HFrEF (heart failure with reduced ejection fraction): Plan: As above Blood pressure cannot tolerate CHAVA inhibitor or metoprolol Lasix as noted, Cr tolerating Admission and Anticipated Discharge Date Admission Date: June 01, 2022 Subjective Sleeping comfortably without under blanket. Arouses easily, no questions. Pending placement to [facility] this coming week. Denies pain. Review of Systems Review of Systems: Denies any symptoms. No shortness of breath. Physical Exam Physical Exam: General: A&O. Cachechtic. Sleeps with blanket overhead, answers questions well keeping blanket overhead. HEENT: Atraumatic, normocephalic. Pulm: No increased work of breathing. No respiratory distress. Cardiac: R Radial pulses intact, Regular Ext: Pretib edema bilat. Results & Data Results & Data ([facility]) Vital Signs (Past 12 Hours) Vital Signs Temp Pulse Resp BP Pulse Ox O2 Del Method O2 Flow Rate 06/16/22 11:28 36.7 C 79 14 97/67 L 97 Nasal Cannula 2 06/16/22 08:30 Nasal Cannula 2 06/16/22 07:44 36.7 C 62 16 99/65 L 100 Nasal Cannula 2 06/16/22 03:35 37 C 71 16 98/64 L 100 Nasal Cannula 3 PG Care Time/CCT Total # of Minutes Spent Total Time Spent with Patient: Total time spent is greater than 50% in coordination of care (as documented) at patient's floor/unit and/or counseling patient: Coding Level of Care Code 90539 Subseq Hosp Care Lvl 1 Diagnoses Sepsis A41.9 Cirrhosis K74.60 Spontaneous bacterial peritonitis K65.2 Acute respiratory failure with hypoxia J96.01 Cachexia R64 Anemia D64.9 Protein calorie malnutrition E46 Hypoglycemia E16.2 Ascites R18.8 Insulin dependent diabetes mellitus E11.9; Z79.4 Hypothyroidism E03.9 Alcoholism F10.20 Urinary retention R33.9 Hypophosphatemia E83.39 TRALI (transfusion related acute lung injury) J95.84 HFrEF (heart failure with reduced ejection fraction) I50.20
[2022-06-16] MEDS: ALBUMIN 25% 100 mL 25 GM/100 ML VIAL IV SCH (17:59)
[2022-06-16] MEDS: CARBOHYDRATES FOR HYPOGLYCEMIA PO PRN (20:24)
[2022-06-16] MEDS: MELATONIN 3 MG TAB PO SCH (20:43)
[2022-06-17] MEDS: ALBUMIN 25% 100 mL 25 GM/100 ML VIAL IV SCH (01:03)
[2022-06-17] MEDS: LEVOTHYROXINE SODIUM 50 MCG TABLET PO SCH (05:34)
[2022-06-17 06:05] LABS: Hematocrit (blood only) 21.4 % (40.1-51.0); Hemoglobin 7.1 g/dl (14.0-18.0); Mean Corpuscular Hemoglobin 34.8 pg (25.0-34.0); Mean Corpuscular Hgb Conc 33.2 g/dL (32.0-36.0); Mean Corpuscular Volume 104.9 fL (80.0-100.0); Mean Platelet Volume 11.2 fL (9.4-12.4); Platelet Count 152 K/uL (130-400); RDW Coefficient of Variation 17.7 % (11.5-14.5); RDW Standard Deviation 68.3 fL (36.4-46.3); Red Blood Count 2.04 M/uL (4.63-6.08); White Blood Count 6.81 K/ul (4.8-10.8)
[2022-06-17 06:28] LABS: Albumin Globulin Ratio 2.1 (0.9-2); Albumin Level 3.7 gm/dl (3.4-5.0); BUN Creatinine Ratio 24.2 (10-20); Bilirubin,Total 0.6 mg/dl (0.2-1.0); Calcium 8.9 mg/dl (8.5-10.1); Creatinine Clr Calc Pharmacy 60.2 ml/min; Est GFR (African American) 127.9 ml/min; Est GFR (Non-African American) 110.4 ml/min; Globulin 1.8 gm/dl (2.5-4.0); Potassium 4.6 mmol/L (3.5-5.1); Total Protein 5.5 gm/dl (6.0-8.3)
[2022-06-17 07:03] LABS: Basophils # (auto) 0.04 K/uL (0-0.2); Basophils % (auto) 0.6 %; Eosinophils # (auto) 0.07 K/uL (0-0.50); Immature Granulocytes # (auto) 0.04 K/uL (0.00-0.02); Immature Granulocytes % (auto) 0.6 %; Lymphocytes # (auto) 1.84 K/uL (1.2-3.4); Macrocytosis Present; Monocytes % (auto) 7.3 %; Neutrophils # (auto) 4.32 K/uL (1.4-6.5); Neutrophils % (auto) 63.5 %; Stomatocytes 1+; Target Cells 1+
[2022-06-17] MEDS ORDERED: LANTUS PER UNIT CHARGE SQ SCH ×2 (09:00→21:00)
[2022-06-17] MEDS: INSULIN ASPART PER UNIT SC SCH ×5 (09:09→21:07)
[2022-06-17] MEDS: FUROSEMIDE 40 MG TAB PO SCH (09:09)
[2022-06-17] MEDS: GABAPENTIN 300 MG CAP PO SCH ×2 (09:09→21:08)
[2022-06-17] MEDS: SPIRONOLACTONE 100 MG TAB PO SCH (09:10)
[2022-06-17] MEDS: THIAMINE HCL 200 MG in SODIUM CHLORIDE 0.9% 50 ML IV SCH (09:18)
--- NOTE | 2022-06-17 11:25 | Hospitalist Progress Note ---
Date of Service June 17, 2022 Assessment & Plan (1) Sepsis: Plan: Goals: Given patient's progressive decline, multiple lengthy discussions with him as well as his brother and [id number] at bedside that given his undetectable albumin level, now with evidence of third spacing and accumulation of ascites, pleural effusions, and persistent hypotension, severe hypoxia, his overall prognosis is poor. I told him that at this time, his options for treatment are limited and that it is very likely his condition will only decline further until he would have multisystem organ failure. Noah seemed to understand that he is dying and had a degree of acceptance. He has two brothers, one (Henri) is his oldest brother and he would like to be primarily making decisions about his care if he should become incapacitated and not able to do so for himself. He does have a son but seems that he is estranged. We discussed code status and he understands his poor prognosis and likely what would be a poor outcome if we were to attempt a full resuscitation and he has voiced his wish to be DNR/DNI. Therefore, this change has been reflected in his chart. As of 06/06: Noah has goals of the following: Attempts at diuresis to improve hypoxia so that he can leave the hospital and go to a snf on hospice. If deteriorates further while in the hospital, okay to transition to comfort measures only with IV morphine and comfort medications. Palliative care provider, Dr. Liang, is on consult, greatly appreciate assistance. Dispo-referrals in place with [facility] and [facility] for placement. Pt now saying he wants to go home but this is definitely not possible as he is extremely frail, debilitated, cannot safely care for himself, and has no family or friends that can care for him 16/06. - Awaiting placement. Per CC, no beds available. Placement remains pending. Referrals out to [facility] Sepsis 2/2 suspected SBP, improved - Met sepsis criteria manifested by leukocytosis, tachycardia and hypotension with elevated lactate - Source confirmed follow ultrasound-guided paracentesis on 06/04 to be SBP - Antibiotics changed from Rocephin/Zithromax initially to Zosyn on 06/04 which has broader coverage for SBP-plan for 10 days of antibiotic therapy-last day of treatment 06/13, discontinued. - leukocytosis resolved - Diarrhea --> c diff negative. - Hypotension improved with albumin -Peritoneal fluid culture negative, but he was on antibiotics for many days prior to paracentesis - Blood cultures ng@5 days, final -Urinalysis not consistent with infection -Procalcitonin markedly elevated at 170 rapidly downtrended -Continue to follow CBC, CMP - Jose held 06/12 for hyperkalemia. [place] 150/lasix 60 06/13 resumed. Potassium supplement discontinued. K wnl 06/13 & 06/17, spot labs (2) Cirrhosis: Plan: -Noted on imaging, likely secondary to history of chronic alcohol use disorder -Family history positive for mother who at age 55 from cirrhosis as well-she also had alcohol use disorder, however question if there is a hereditary component to these cirrhosis- With massive ascites suggestive of portal hypertension, but could be secondary to unknown malignancy -Synthetic dysfunction and hyperbilirubinemia present -No evidence of hepatic encephalopathy -Meld score now up to 13 points indicating 6% estimated 3-month mortality -May use IV albumin and IV Lasix to diurese and improve hypoxia -SUSAN Estrada did discuss the case with on-call GI Dr. Patricia Dimas on 06/04 regarding the abnormal MRCP but no ERCP was recommended for the pancreatic duct stones due to patient not having active pancreatitis as stated above. - Spirolactone/lasix as ntoed (3) Spontaneous bacterial peritonitis: Plan: -As above, treating with Zosyn as cefotaxime not available which would be first- line choice -Culture neg -Cytology negative for malignancy -Ascites secondary to cirrhosis versus malignancy (4) Acute respiratory failure with hypoxia: Plan: - with large b/l pleural effusions secondary to profound hypoalbuminemia pt is third spacing -Also suspect TRALI as he was not requiring O2 prior to blood transfusion, but required large amounts of O2 immediately after 1 unit of PRBCs infused. - Chest x-ray on 06/07 with diffuse haziness-appears like ARDS, also with layering pleural effusions and atelectasis -Could also be secondary to acute HFrEF as proBNP elevated at 2000 and echoc ardiogram consistent with moderate to severely reduced EF with LVEF 30-35% and wall motion abnormalities - Supplemental oxygen provided-was requiring max settings of Vapotherm and ndown to 2LNC with ongoing diuresis -Goal of care as discussed with patient. Diuresis with IV albumin and Lasix in order to wean oxygen requirement down so he can be discharged out of the hospital to a snf. Weaned to 2L NC and is pending dispo. -continue Lasix 40 Mg IV twice daily along with IV albumin PRN and monitor closely -Continue incentive spirometry - Cr stable (5) Cachexia: Plan: Possibly secondary to unknown malignancy, CEA elevated, possible pancreatic cancer given pancreatic lesion Also could be due to cirrhosis, CHF TSH only mildly elevated No other significant abnormalities consistent with malignancy seen on CT chest/abdomen/pelvis or on physical examination -hx of IV drug use and has not had unprotected intercourse in many years, but does report that he has been in and out of [facility] his whole life -With his consent, checked HIV, hepatitis-all negative -encourage po intake (6) Anemia: Plan: -Macrocytic, B12 and folate normal, serum iron slightly low -Peripheral smear unremarkable -Chronic anemia most likely secondary to liver disease -Hemoglobin had been stable throughout hospitalization but then with acute drop to 7.2 on 06/05 with no obvious bleeding noted and fecal occult negative -Transfused 1 unit PRBCs and then had significant hypoxia-second unit PRBCs not given - CTA a/p is without obvious source of bleeding -Hemoglobin downtrending, 7.1 on 06/17. Trend, patient with no new symptoms or clinical bleeding. Transfusion threshold 7.0. If transfusion needed give cautiously given subsequent hypoxia with first unit as noted above (7) Protein calorie malnutrition: Plan: - Patient states he only eats 1 or 2 times a day, for the past 2 weeks [employer] he had not been eating very much at all, however his weight loss has apparently been going ongoing for many months. Patient states he was diagnosed with pancreatic cancer in 2010 along with his diabetes, however there are no oncology notes or no note of this or any cancer for that matter in his PCP notes. It seems that his PCP was recommending chest CT, CT A/P, and UA to rule out malignancies. - CXR, CT A/P on admit without any evidence for mass or any kind of infectious inflammatory process. - Consulted RD for nutritional supplementations - started on IV Thiamine due to malnutrition and elevated lactate, liver disease - Albumin has been undetectable on labs but now improved with IV albumin - Suspicious of malignancy, MRCP obtained d/t ?findings of IPMN on RUQ ultrasound. MRCP results as above, ascites and cirrhotic liver noted. - CEA and CA 19-9 obtained. CEA elevated, CA 19-9 pending. Per primary care records, was set up for o/p screening colo 2 years ago but didn't go as he didn't have transportation. ? metastatic colon ca but no obvious masses noted via imaging and no suspicious lesions noted on imaging of liver - He had received IV Albumin as a temporizing measure. Albumin stopped. (8) Hypoglycemia: Plan: - Presenting sugar 56 on BMP, 58 POC glucose. Patient has not been eating much over the past 2 weeks, yet intermittently taking his insulin. - D5 / NSS @ 125 cc/hr ordered on admit which is now been discontinued - Held home insulin, started on SSI, regular diet, no carb ratio. -with hypoglycemia in to the 30s on evening of 06/04 - Lesion in the pancreatic tail noted on ultrasound 06/02, MRCP performed, evidence of chronic pancreatitis with stones in pancreatic duct. Spoke w/ GI, no indication for ERCP at this time. - Cirrhotic liver and ascites noted on MRCP also likely contributing (9) Ascites: Plan: - Repeat CTA a/p 06/05, read as large ascites - MRCP confirmed cirrhotic liver - Albumin as noted, has since been d/david (10) Insulin dependent diabetes mellitus: Plan: - w/ hypoglycemia duringadmit - A1c only 5.3% - Continue gabapentin for neuropathy. - [place] diet given hypoglycemia & severe malnutrition. Hyperglycemic postmeal without snacking 06/17. Currently CF 50/Ratio35 goal 130-180 --> scale given with recheck pending (11) Hypothyroidism: Plan: - Continue levothyroxine. - TSH 5.4, free T4 1.16. - Defer adjustments in Synthroid at present likely got while edema was preventing absorption of Synthroid (12) Alcoholism: Plan: - History of, last drink in 2019. - Evidence of cirrhosis noted on MRCP with ascites (13) Urinary retention: Plan: - Requiring bill to be placed by urology on 06/04 -Continue to maintain Bill catheter Blood pressure could not tolerate tamsulosin (14) Hypophosphatemia: Plan: Repleted (15) TRALI (transfusion related acute lung injury): Plan: As above, now improving respiratory status follow CXR in AM (16) HFrEF (heart failure with reduced ejection fraction): Plan: As above Blood pressure cannot tolerate CHAVA inhibitor or metoprolol Lasix as noted, Cr tolerating Admission and Anticipated Discharge Date Admission Date: June 01, 2022 Subjective Seen at the bedside. No lightheadedness/dizziness/chest pain/pressure/shortness of breath. No clinical signs of bleeding. Feels "okay ". Would like to be moved up in bed, would like his bed to be shifted to the window if possible. No other acute concerns. No fever/chills/sweats/abdominal pain overnight. Review of Systems Review of Systems: All systems reviewed & are unremarkable except as noted in Subjective Physical Exam Physical Exam: General: A&O. Cachechtic. Sleeps with blanket overhead, pulls back blanketBehind head and conversive today. No acute distress. HEENT: Atraumatic, normocephalic. Vision and hearing grossly intact Pulm: Moderate air movement, diminished effort somewhat, without wheezes/rales/crackles increased work of breathing. No respiratory distress. Cardiac: RRR, -MRG Abdomen: Softly distended, nontender Ext: Pretib edema bilat. Results & Data Results & Data ([facility]) Vital Signs (Past 12 Hours) Vital Signs Temp Pulse Pulse Resp BP BP Pulse Ox 06/17/22 10:54 36.8 C 85 16 107/66 100 06/17/22 08:08 36.6 C 93 H 18 104/71 97 06/17/22 07:46 72 06/17/22 04:00 36.7 C 79 18 104/64 100 06/16/22 23:25 36.7 C 69 18 99/63 L 100 06/16/22 23:17 O2 Del Method O2 Flow Rate 06/17/22 10:54 2 06/17/22 08:08 06/17/22 07:46 06/17/22 04:00 Nasal Cannula 2 06/16/22 23:25 Nasal Cannula 2 06/16/22 23:17 Room Air PG Care Time/CCT Total # of Minutes Spent Total Time Spent with Patient: Total time spent is greater than 50% in coordination of care (as documented) at patient's floor/unit and/or counseling patient: Coding Level of Care Code 09072 Subseq Hosp Care Lvl 2 Diagnoses Sepsis A41.9 Cirrhosis K74.60 Spontaneous bacterial peritonitis K65.2 Acute respiratory failure with hypoxia J96.01 Cachexia R64 Anemia D64.9 Protein calorie malnutrition E46 Hypoglycemia E16.2 Ascites R18.8 Insulin dependent diabetes mellitus E11.9; Z79.4 Hypothyroidism E03.9 Alcoholism F10.20 Urinary retention R33.9 Hypophosphatemia E83.39 TRALI (transfusion related acute lung injury) J95.84 HFrEF (heart failure with reduced ejection fraction) I50.20
--- NOTE | 2022-06-17 11:56 | Pharmacy Report ---
Pharmacy Glycemic Short Note 2 - Date of Service June 17, 2022 - Glycemic Short BSG Results (Last 24 hours): 06/16/22 06/16/22 06/16/22 16:17 20:19 20:20 Glucose POC Glucose 139 H 46 L* 48 L* 06/16/22 06/16/22 06/17/22 20:41 23:31 01:47 Glucose POC Glucose 91 248 H 234 H 06/17/22 06/17/22 06/17/22 05:27 07:30 11:09 Glucose 213 H POC Glucose 221 H 341 H* 06/17/22 11:10 Glucose POC Glucose 356 H* OUTPATIENT ANTIDIABETIC REGIMEN: * Lantus 2 units SC BID * Novolog 3 units SC TIDM * HbA1c 5.3% (06/02/22) ASSESSMENT: 06/17/22: * Mr Recinos has had labile BSGs during admission. He seems to have at least one episode of significant hyperglycemia daily, with intermittent hypoglycemia as well. * Lantus was resumed this morning at home dose, as fasting BSGs have been elevated. * Novolog parameters were loosened slightly this morning, in an attempt to prevent further episodes of hypoglycemia. * Patient is being seen by Palliative care and is likely nearing end of life. At this point, strict glycemic control is not likely warranted. Will attempt to keep BSGs less than ~200-250mg/dL and also avoid inducing hypoglycemia. 06/14 * DF is a 51 year old male admitted to [facility] on 06/01/22 for evaluation following a wellness check from EMS * Patient reported feeling generally weak with ongoing chills and dry cough, hypoglycemia in ED * Patient with very low body weight (33 kg) and profound hypoalbuminemia (w/ anasarca, ascites, and pleural effusions) * Concern for possible metastatic disease of currently unknown origin * Pharmacy consulted for glycemic management on afternoon of 06/13/22 due to BSG > 300 mg/dL * BSGs improved to 114 mg/dL after 3 unit IV regular insulin bolus * BSGs have been labile during admission and given patient's fragile condition, will be very conservative with adjustments PLAN FOR INPATIENT GLYCEMIC CONTROL: * Basal insulin * Lantus 2 units SQ BID * Bolus insulin * NovoLog per scale ACHS or Q6hrs while NPO * Goal Range: Low 120 mg/dL - High 180 mg/dL * Correction Factor: 50 mg/dL/unit * Nutritional / Prandial insulin per carb ratio of 1 unit per 35 grams CHO consumed
[2022-06-17] MEDS ORDERED: INSULIN HUMAN REGULAR PER UNIT 3 UNITS in SYRINGE 2.97 ML IV ONE (14:00)
[2022-06-17] MEDS: CARBOHYDRATES FOR HYPOGLYCEMIA PO PRN ×2 (16:00→20:00)
[2022-06-17] MEDS: DEXTROSE 50% 50 ML SYRINGE IV PRN (16:03)
[2022-06-17] MEDS: MELATONIN 3 MG TAB PO SCH (21:09)
[2022-06-18] MEDS: INSULIN ASPART PER UNIT SC SCH ×4 (00:21→13:40)
[2022-06-18] MEDS: ACETAMINOPHEN 325 MG TAB PO PRN (01:22)
[2022-06-18] MEDS: LEVOTHYROXINE SODIUM 50 MCG TABLET PO SCH (04:33)
[2022-06-18 06:58] LABS: Basophils # (auto) 0.04 K/uL (0-0.2); Basophils % (auto) 0.5 %; Eosinophils # (auto) 0.06 K/uL (0-0.50); Eosinophils % (auto) 0.7 %; Immature Granulocytes # (auto) 0.04 K/uL (0.00-0.02); Immature Granulocytes % (auto) 0.5 %; Lymphocytes # (auto) 1.76 K/uL (1.2-3.4); Lymphocytes % (auto) 21.8 %; Mean Corpuscular Hemoglobin 35.5 pg (25.0-34.0); Mean Corpuscular Hgb Conc 33.3 g/dL (32.0-36.0); Mean Corpuscular Volume 106.6 fL (80.0-100.0); Mean Platelet Volume 11.1 fL (9.4-12.4); Monocytes # (auto) 0.73 K/uL (0.24-0.82); Neutrophils # (auto) 5.46 K/uL (1.4-6.5); Neutrophils % (auto) 67.5 %; Platelet Count 183 K/uL (130-400); RDW Coefficient of Variation 17.9 % (11.5-14.5); RDW Standard Deviation 70.5 fL (36.4-46.3); Red Blood Count 1.97 M/uL (4.63-6.08); White Blood Count 8.09 K/ul (4.8-10.8)
[2022-06-18 07:21] LABS: BUN Creatinine Ratio 19.4 (10-20); Calcium 8.8 mg/dl (8.5-10.1); Creatinine Clr Calc Pharmacy 67.5 ml/min; Est GFR (African American) 127.1 ml/min; Est GFR (Non-African American) 109.7 ml/min; Potassium 4.6 mmol/L (3.5-5.1)
[2022-06-18 07:27] LABS: Target Cells 2+
[2022-06-18] MEDS: SPIRONOLACTONE 100 MG TAB PO SCH (07:51)
[2022-06-18] MEDS: FUROSEMIDE 40 MG TAB PO SCH (07:51)
[2022-06-18] MEDS: GABAPENTIN 300 MG CAP PO SCH (07:51)
[2022-06-18] MEDS ORDERED: LANTUS PER UNIT CHARGE SQ SCH (09:00)
[2022-06-18] MEDS: THIAMINE HCL 200 MG in SODIUM CHLORIDE 0.9% 50 ML IV SCH (09:12)
--- NOTE | 2022-06-18 11:31 | Communication Note ---
Date of Service: June 18, 2022 Script sent at Dheeraj Flores's request due to technical issues with his [employer] token. One bottle of morphine concentrate for hospice/palliative use.
--- NOTE | 2022-06-18 11:40 | Discharge Summary ---
Date of Service June 18, 2022 Admission HPI Per Admitting Provider Jabari Recinos is a 51-year-old male with severe malnutrition, hypothyroidism, diabetes, neuropathy, and history of alcohol abuse with last drink in 2019 who presents today with hypoglycemia. Patient's neighbors called EMS for wellness check when they had not seen him in 2 weeks. They reportedly found him on his couch in his home. He had a low sugar and was brought into the ED for further evaluation. Patient states over the past several weeks he has been feeling generally weak with ongoing chills and dry cough. He has not been eating much, going a few days at a time without eating. He has intermittently been taking his Lantus. He has been having some abdominal pain as well, but states it is only mild and fairly general. He denies headache, body aches, chest pain, palpitations, shortness of breath, sputum production, nausea, vomiting, diarrhea, constipation. He is reporting that he has pancreatic cancer that he says was diagnosed in 2010, also reports he thinks he is colon cancer however I do not see mention of any confirmed cancer diagnosis in his PCP notes. Upon review of PCP notes, it looks like his weight loss has been an ongoing issue and provider was attempting to arrange labs and imaging to evaluate for malignancy, however I do not see these labs or imaging in our system. In the ED, he is tachycardic with HR 90-100, otherwise vital signs within normal limits. Labs significant for leukocytosis, elevated lactate, stable macrocytic anemia, initial glucose of 56, calcium 8.0. Protein 5.6, albumin 2.0. COVID/flu/RSV negative. CXR with infiltrate in RLL, CT A/P with abdominal and pelvic ascites, mucosal thickening of the large and small bowel with no evidence of leak dilation obstruction, large bilateral pleural effusions with atelectasis, and diffuse calcification of the pancreas without a focal mass noted. Principal Diagnosis Cirrhosis Cachexia with failure to thrive, BMI 14.2 Suspected SBP Discharge Exam General: A&O. Cachechtic. Sleeps with blanket overhead, pulls back blanketBehind head and conversive today. No acute distress. HEENT: Atraumatic, normocephalic. Vision and hearing grossly intact Pulm: Moderate air movement, diminished effort somewhat, without wheezes/rales/crackles increased work of breathing. No respiratory distress. Cardiac: RRR, -MRG Abdomen: Softly distended, nontender : Bill in place draining clear yellow urine. All blood clot surrounding meatus, no pain. Ext: Pretib edema bilat. Discharge Data Allergies Allergy/AdvReac Type Severity Reaction Status Date / Time No Known Allergies Allergy Unknown Verified 03/26/22 15:02 Consultations 06/01/22 20:01 ED Decision to Admit Stat 06/01/22 22:46 Consult Radiology Routine 06/04/22 07:28 Consult Urology Routine 06/04/22 09:42 Consult Palliative Care Routine Ordered Studies 06/01/22 18:31 CT abd pelvis IV con only Stat 06/02/22 08:09 US abdomen limited Stat 06/02/22 14:14 CT chest diagnostic wo con Urgent 06/03/22 12:07 MR MRCP Routine 06/04/22 09:38 US paracentesis abd w/image Urgent 06/05/22 09:56 CTA abdomen pelvis w con [CT angio abdomen pelvis w con] Stat Hospital Course (1) Sepsis: Jabari is a 51-year-old male with severe cachexia, possible underlying malignancy, severe liver cirrhosis, and cachexia with BMI of 14 who presented with suspected SBP and clinical decline. Did experience anemia following Bill exchange, and TRALI with 1 unit of blood transfusion during admission, subse quent stabilization although overall prognosis grim. Discussed goals of care, dc with transition to hospice as noted below To do as outpatient: 1. Continue Lasix spironolactone for symptomatic benefit of ascites, discontinue if side effects/hypotension worse than benefit 2. Transition to hospice 3. Continue Bill care Goals: Given patient's progressive decline, multiple lengthy discussions with him as well as his brother and [id number] at bedside that given his undetectable albumin level, now with evidence of third spacing and accumulation of ascites, pleural effusions, and persistent hypotension, severe hypoxia, his overall prognosis is poor. I told him that at this time, his options for treatment are limited and that it is very likely his condition will only decline further until he would have multisystem organ failure. Noah seemed to understand that he is dying and had a degree of acceptance. He has two brothers, one (Henri) is his oldest brother and he would like to be primarily making decisions about his care if he should become incapacitated and not able to do so for himself. He does have a son but seems that he is estranged. We discussed code status and he understands his poor prognosis and likely what would be a poor outcome if we were to attempt a full resuscitation and he has voiced his wish to be DNR/DNI. Therefore, this change has been reflected in his chart. As of 06/06: Noah has goals of the following: Attempts at diuresis to improve hypoxia so that he can leave the hospital and go to a fpc on hospice. If deteriorates further while in the hospital was okay to transition to comfort measures only with IV morphine and comfort medications.Palliative care provider, Dr. Liang, was on consult, greatly appreciate assistance. -06/18: Patient did have hemoglobin of 7.1, 7.0 on recheck. Blood clot appreciable around Bill. Jabari did not have any symptoms of chest pain, chest pressure, lightheadedness, dizziness, worsening fatigue bedside evaluation. Discussed her/benefits of additional intervention including catheter exchange, bladder ultrasound, and blood transfusion. He had experienced TRALI with significant respiratory distress with 1 unit transfusion earlier in admission. Patient is anticipating transition to hospice, and skilled bed is available. On rare/benefits discussion patient reports that he understands his blood levels are low, and may continue to drop but has a goal of transitioning to hospice and would like to be discharged today if possible. Also on shared decision making feels that the risk of worsening breathing with transfusion, bleeding with catheter exchange as he has experienced previously, and risk of delaying his transfer exceeds the potential benefit, and that he would rather be kept comfortable and pursue discharge today. Transfusion and additional bladder evaluation deferred. Bill is continuing to drain clear yellow urine. Patient did express that he wanted his bank compliance officer notified as he is not supposed to leave the [facility]. Jabari did give permission to discuss his case and disclose medical information to bank compliance officer. Dealer Development Manager Rupesh Avina was contacted at the [facility], and discussed the discharge to hospice at SNF at [facility]. Patient okay for discharge as discussed. Sepsis 2/2 suspected SBP, improved - Met sepsis criteria manifested by leukocytosis, tachycardia and hypotension with elevated lactate - Source confirmed follow ultrasound-guided paracentesis on 06/04 to be SBP - Antibiotics changed from Rocephin/Zithromax initially to Zosyn on 06/04 which has broader coverage for SBP-plan for 10 days of antibiotic therapy-last day of treatment 06/13, discontinued. - leukocytosis resolved - Diarrhea --> c diff negative. - Hypotension improved with albumin -Peritoneal fluid culture negative, but he was on antibiotics for many days prior to paracentesis - Blood cultures ng@5 days, final -Urinalysis not consistent with infection -Procalcitonin markedly elevated at 170 rapidly downtrended -Continue to follow CBC, CMP - [place] held 06/12 for hyperkalemia. Jose 150/lasix 60 06/13 resumed. Potassium supplement discontinued. K wnl 06/13 & 06/17 on spot labs (2) Cirrhosis: -Noted on imaging, likely secondary to history of chronic alcohol use disorder -Family history positive for mother who at age 55 from cirrhosis as well-she also had alcohol use disorder, however question if there is a hereditary component to these cirrhosis- With massive ascites suggestive of portal hypertension, but could be secondary to unknown malignancy -Synthetic dysfunction and hyperbilirubinemia present -No evidence of hepatic encephalopathy -Meld score now up to 13 points indicating 6% estimated 3-month mortality -Used IV albumin and IV Lasix to diurese and improve hypoxia -SUSAN Estrada did discuss the case with on-call GI Dr. Patricia Dimas on 06/04 r egarding the abnormal MRCP but no ERCP was recommended for the pancreatic duct stones due to patient not having active pancreatitis as stated above. - Spirolactone/lasix as ntoed - Discharged with transition to hospice, can continue jose/lasix for symptomatic benefit (3) Spontaneous bacterial peritonitis: -As above, treating with Zosyn as cefotaxime not available which would be first- line choice -Culture neg -Cytology negative for malignancy -Ascites secondary to cirrhosis versus malignancy (4) Acute respiratory failure with hypoxia: - with large b/l pleural effusions secondary to profound hypoalbuminemia pt is third spacing -Also suspect TRALI as he was not requiring O2 prior to blood transfusion, but required large amounts of O2 immediately after 1 unit of PRBCs infused. - Chest x-ray on 06/07 with diffuse haziness-appears like ARDS, also with layering pleural effusions and atelectasis -Could also be secondary to acute HFrEF as proBNP elevated at 2000 and echocardiogram consistent with moderate to severely reduced EF with LVEF 30-35% and wall motion abnormalities - Supplemental oxygen provided-was requiring max settings of Vapotherm and ndown to 2LNC with ongoing diuresis -Goal of care as discussed with patient. Diuresis with IV albumin and Lasix in order to wean oxygen requirement down so he can be discharged out of the hospital to a fpc. Weaned to 2L NC and is pending dispo. -continued Lasix 40 Mg IV twice daily along with IV albumin PRN and monitor closely -Continue incentive spirometry - Cr stable (5) Cachexia: Possibly secondary to unknown malignancy, CEA elevated, possible pancreatic cancer given pancreatic lesion Also could be due to cirrhosis, CHF TSH only mildly elevated No other significant abnormalities consistent with malignancy seen on CT chest/abdomen/pelvis or on physical examination -hx of IV drug use and has not had unprotected intercourse in many years, but does report that he has been in and out of fpc his whole life -With his consent, checked HIV, hepatitis-all negative -encourage po intake (6) Anemia: -Macrocytic, B12 and folate normal, serum iron slightly low -Peripheral smear unremarkable -Chronic anemia most likely secondary to liver disease -Hemoglobin had been stable throughout hospitalization but then with acute drop to 7.2 on 06/05 with no obvious bleeding noted and fecal occult negative -Transfused 1 unit PRBCs and then had significant hypoxia-second unit PRBCs not given - CTA a/p is without obvious source of bleeding -Hgb 7.0 with some blood ellen bill, discussed as above and deffered additional tx on risk/benefit discussion with transition to hospice above (7) Protein calorie malnutrition: - Patient states he only eats 1 or 2 times a day, for the past 2 weeks [employer] he had not been eating very much at all, however his weight loss has apparently bee n going ongoing for many months. Patient states he was diagnosed with pancreatic cancer in 2010 along with his diabetes, however there are no oncology notes or no note of this or any cancer for that matter in his PCP notes. It seems that his PCP was recommending chest CT, CT A/P, and UA to rule out malignancies. - CXR, CT A/P on admit without any evidence for mass or any kind of infectious inflammatory process. - Consulted RD for nutritional supplementations - started on IV Thiamine due to malnutrition and elevated lactate, liver disease - Albumin has been undetectable on labs but now improved with IV albumin - Suspicious of malignancy, MRCP obtained d/t ?findings of IPMN on RUQ ultrasound. MRCP results as above, ascites and cirrhotic liver noted. - CEA and CA 19-9 obtained. CEA elevated, CA 19-9 pending. Per primary care records, was set up for o/p screening colo 2 years ago but didn't go as he didn't have transportation. ? metastatic colon ca but no obvious masses noted via imaging and no suspicious lesions noted on imaging of liver - He had received IV Albumin as a temporizing measure. Albumin stopped. (8) Hypoglycemia: - Presenting sugar 56 on BMP, 58 POC glucose. Patient has not been eating much over the past 2 weeks, yet intermittently taking his insulin. - D5 1/ NSS @ 125 cc/hr ordered on admit which is now been discontinued - Held home insulin, started on SSI, regular diet, no carb ratio. -with hypoglycemia in to the 30s on evening of 06/04 - Lesion in the pancreatic tail noted on ultrasound 06/02, MRCP performed, evidence of chronic pancreatitis with stones in pancreatic duct. Spoke w/ GI, no indication for ERCP at this time. - Cirrhotic liver and ascites noted on MRCP also likely contributing (9) Ascites: - Repeat CTA a/p 06/05, read as large ascites - MRCP confirmed cirrhotic liver - Albumin as noted, has since been d/david (10) Insulin dependent diabetes mellitus: - w/ hypoglycemia duringadmit - A1c only 5.3% - Continue gabapentin for neuropathy. - [place] diet given hypoglycemia & severe malnutrition. Hyperglycemic postmeal without snacking 06/17. Currently CF 50/Ratio35 goal 130-180 --> scale given with recheck pending (11) Hypothyroidism: - Continue levothyroxine. - TSH 5.4, free T4 1.16. - Defer adjustments in Synthroid at present likely got while edema was preventing absorption of Synthroid (12) Alcoholism: - History of, last drink in 2019. - Evidence of cirrhosis noted on MRCP with ascites (13) Urinary retention: - Requiring bill to be placed by urology on 06/04 -Continue to maintain Bill catheter Blood pressure could not tolerate tamsulosin (14) Hypophosphatemia: Repleted (15) TRALI (transfusion related acute lung injury): As above, now improving respiratory status follow CXR in AM (16) HFrEF (heart failure with reduced ejection fraction): As above Blood pressure cannot tolerate CHAVA inhibitor or metoprolol Lasix as noted, Cr tolerating Total Time Total Time Spent Total Time Spent (In Minutes): Time spend day of discharge 50 minutes including direct patient care, documentation, review of labs and images, and coordination of care. Discharge Plan Discharge Items Patient Disposition: Hospice - Medical Facility Reason For Visit: PNEUMONIA, SEVERE MALNUTRITION Discharge Diagnosis: Liver cirrhosis Suspected SBP Severe malnutrition, cachectic with BMI 14 and failure to thrive Condition on Discharge: Fair Activity: Resume your previous activity Non-emergency contact: Primary Care Provider Call non-emergency contact if: you have any medication questions and your symptoms worsen Follow-up/Referrals: Chad Oreilly, [Primary Care Provider] - Diet: Regular and Carb Count or DM1 Addtl Attending Provider Instructions: You were seen in the hospital for sepsis due to suspected infection of fluid in your abdomen, and you are found to have progressive cirrhosis. There was concern that you could have a underlying malignancy/cancer as well. Your case was discussed with you and your family with palliative care during admission, and recognize that at this time treatment options were limited and it is very likely that your condition will continue to decline to the point of multisystem failure. On goals of care and shared decision making have decided to pursue transition to hospice with placement close to family. You did have slowly downtrending blood counts. You did receive a transfusion of blood, but unfortunately did not tolerate this well and developed a transfusion related acute lung injury requiring significant amounts of oxygen, after which she gradually improved with supportive care. Your counts were again downtrending and close to transfusion threshold at time of discharge with some bleeding around your urinary catheter. The risk/benefits of this were discussed, and as you are asymptomatic with your current blood levels, transitioning to comfort oriented goals, and are high risk for treatment opted to defer this into discharge to extended care with hospice services. You have been continued on fluid/blood pressure medicines, spironolactone and Lasix as noted below. These medicines may help to treat fluid in the abdomen caused by cirrhosis which can build up and be uncomfortable. If you do not tolerate these medications/have symptoms of low blood pressure with these it is reasonable to stop these if they are causing more side effects than symptomatic benefit. You have been prescribed a pain medicine, morphine, which can be taken orally every 6 hours for pain. The hospice providers will perform a medication review and adjust your pain and anxiety medications as needed. If you develop any new or worsening symptoms including fever, chills, sweats, chest pain, chest pressure, difficulty breathing, uncontrolled nausea/vomiting, rash, wheezing, passing out or nearly passing out, bleeding, black/bloody bowel movements, or other new or concerning symptoms please discuss these with your facility or hospice physician Pending Studies at Discharge: No Stand-Alone Forms: My [facility] [address] [facility] Skilled Items Patient informed of condition?: Yes DNR: Yes Discharge Level of Care: Other Communicable Disease: No Discharge Prognosis: Stable Lines: None Urinary Catheter: Yes Medications and DC Order Prescriptions: New spironolactone 100 mg Tablet 100 mg PO QAM Qty: 30 0RF furosemide 40 mg Tablet 40 mg PO QAM Qty: 30 0RF loperamide 2 mg Capsule 2 mg PO Q4H PRN (Reason: diarrhea) Qty: 30 0RF morphine concentrate 100 mg/5 mL (20 mg/mL) solution 5 mg PO Q6H PRN (Reason: pain) Qty: 30 0RF Rx Instructions: For hospice/palliative use Continued (DME) blood sugar diagnostic Strip See Rx Instructions .ROUTE .MEDSUPPLY Qty: 100 11RF Rx Instructions: use to test three times daily and as needed gabapentin 300 mg capsule 300 mg PO BID Qty: 60 11RF levothyroxine 50 mcg tablet 50 mcg PO DAILY Qty: 30 5RF aspirin [Adult Aspirin Regimen] 81 mg tablet,delayed release (DR/EC) 81 mg PO DAILY Qty: 30 11RF (DME) Wheelchair (Manual) Device See Rx Instructions .Route Qty: 1 0RF Rx Instructions: As directed, with elevated leg rest cholecalciferol (vitamin D3) 125 mcg (5,000 unit) capsule 250 mcg PO DAILY Qty: 30 11RF (DME) OneTouch Ultra Test Strip See Rx Instructions .Route Qty: 100 11RF Rx Instructions: check 3 times / day and prn acetaminophen 500 mg Tablet 1,000 mg PO TID PRN (Reason: Pain) insulin aspart U-100 [Novolog Flexpen U-100 Insulin] 100 unit/mL (3 mL) insulin pen 0 unit SQ TID Rx Instructions: slididng scale, with each meal insulin glargine [Lantus Solostar U-100 Insulin] 100 unit/mL (3 mL) insulin pen 0 unit subcut BID Discontinued hydrocodone-acetaminophen 5-325 mg tablet 0.5 - 1 tab PO Q12H PRN (Reason: pain) Qty: 30 0RF Discharge Orders: Discharge Order (Routine); Ordered 06/18/22 Ordered By: Dheeraj Flores Admission Data Admit Date/Time: 06/01/22 21:25 Attending Provider: Dheeraj Flores Admit Provider: Jass Mccray Primary Care Provider: Chad Oreilly Other Providers: Vamsi Graham ; Ana Phillip ; Radha Albarado ; Gonzalo Cabrera ; Ken Bazzi ; Mu Conley ; Hawk Murray ; Vira Dyson ; Geraldo Durant ; Jadiel Muñoz ; Chetan Oswald ; Edwin Dupont ; Brandon Guthrie ; Erickson Phillip ; Luisa Liang ; [place],[facility] Other Interventions: Discharge Summary Assessment (RN) Last Done: 06/18/22 13:44 Coding Level of Care Code D/C DAY MANAGEMENT >30 MINS Diagnoses Sepsis A41.9 Cirrhosis K74.60 Spontaneous bacterial peritonitis K65.2 Acute respiratory failure with hypoxia J96.01 Cachexia R64 Anemia D64.9 Protein calorie malnutrition E46 Hypoglycemia E16.2 Ascites R18.8 Insulin dependent diabetes mellitus E11.9; Z79.4 Hypothyroidism E03.9 Alcoholism F10.20 Urinary retention R33.9 Hypophosphatemia E83.39 TRALI (transfusion related acute lung injury) J95.84 HFrEF (heart failure with reduced ejection fraction) I50.20
== END 2022-06-18 14:55 | disposition hospice, inpatient (51) | DRG 871 ==
LOC: ED 17:49 → 2W 21:25 → SUATTDRO 21:25 → 2W 22:28